=== PATIENT | female | born 1930 | race Caucasian/White ===

== ENCOUNTER 2016-09-26 16:12 | Inpatient (IN) | payer MEDICARE, BC ==
[2016-09-26] MEDS ORDERED: Ondansetron INJ* 2 MG/ML VIAL IV ONE ×2 (16:49→18:10)
[2016-09-26] MEDS ORDERED: Morphine INJ* 4 MG/ML 1 ML SYRINGE IV ONE (16:49)
[2016-09-26] MEDS ORDERED: HYDROmorphone* 1 MG/ML 1 ML SYR IV ONE ×2 (18:10→20:36)
[2016-09-26] MEDS ORDERED: NS 0.9% 1000 ML* 1,000 ML IV SCH ×2 (18:15→22:30)
--- NOTE | 2016-09-26 18:52 | RAD ---
HISTORY: Trauma, fall, pain of left humerus COMPARISONS: None VIEWS: 2, Frontal internal rotation and external rotation views of the left humerus FINDINGS: BONE DENSITY: There is diffuse osteopenia. 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 SOFT TISSUES: Unremarkable. OTHER FINDINGS: None. IMPRESSION: OSTEOPENIA. NO ACUTE OSSEOUS INJURY. THE DEGREE OF OSTEOPENIA MAY MAKE A NONDISPLACED FRACTURE RADIOGRAPHICALLY OCCULT. IF SYMPTOMS PERSIST, RECOMMEND REPEAT IMAGING.
--- NOTE | 2016-09-26 18:53 | RAD ---
HISTORY: Trauma, fall, pain of right humerus COMPARISONS: None VIEWS: 1, single frontal view of the right humerus FINDINGS: BONE DENSITY: There is diffuse osteopenia. BONES: There is a minimally angulated fracture of the surgical neck of the right humerus JOINTS: There is osteoarthritis of the shoulder and elbow ALIGNMENT: There is no dislocation. SOFT TISSUES: Unremarkable. OTHER FINDINGS: None. IMPRESSION: MINIMALLY ANGULATED FRACTURE OF THE PROXIMAL RIGHT HUMERUS
--- NOTE | 2016-09-26 18:53 | RAD ---
HISTORY: Trauma, fall, pain COMPARISONS: None relevant VIEWS: 4, Frontal, lateral, axial, and oblique views of the right knee FINDINGS: BONE DENSITY: There is diffuse osteopenia. BONES: There is no displaced fracture. 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 There is no suprapatellar joint effusion or lipohemarthrosis. ALIGNMENT: There is no dislocation. SOFT TISSUES: Unremarkable. OTHER FINDINGS: None. IMPRESSION: OSTEOPENIA. NO ACUTE OSSEOUS INJURY. THE DEGREE OF OSTEOPENIA MAY MAKE A NONDISPLACED FRACTURE RADIOGRAPHICALLY OCCULT. IF SYMPTOMS PERSIST, RECOMMEND REPEAT IMAGING.
--- NOTE | 2016-09-26 18:54 | RAD ---
HISTORY: Trauma, fall, left elbow pain COMPARISONS: None relevant VIEWS: 2, frontal and oblique lateral views of the left elbow FINDINGS: BONE DENSITY: There is diffuse osteopenia. BONES: There is a minimally impacted fracture of the radial head JOINTS: There is osteoarthritis of the ulnar trochlear and radial-capitellar articulations ALIGNMENT: There is no dislocation. SOFT TISSUES: Unremarkable. OTHER FINDINGS: None. IMPRESSION: OSTEOPENIA. MINIMALLY IMPACTED FRACTURE OF THE RADIAL HEAD
--- NOTE | 2016-09-26 18:55 | RAD ---
HISTORY: Trauma, fall, pain, left shoulder COMPARISONS: May 10, 2010 VIEWS: 3, Frontal internal rotation, external rotation, and outlet views of the left shoulder FINDINGS: BONE DENSITY: There is diffuse osteopenia. BONES: There is remote posttraumatic deformity of the proximal left humerus JOINTS: There is osteoarthritis of the shoulder ALIGNMENT: There is no dislocation. SOFT TISSUES: Unremarkable. OTHER FINDINGS: Surgical clips are noted in the left axilla IMPRESSION: OSTEOPENIA. NO ACUTE OSSEOUS INJURY. THE DEGREE OF OSTEOPENIA MAY MAKE A NONDISPLACED FRACTURE RADIOGRAPHICALLY OCCULT. IF SYMPTOMS PERSIST, RECOMMEND REPEAT IMAGING.
[2016-09-26 18:56] LABS: Hematocrit 36 % (35-47); Hemoglobin 11.2 g/dl (12.0-16.0); Mean Corpuscular HGB Conc 32 g/dl (31-36); Mean Corpuscular Hemoglobin 27 pg (27-31); Mean Corpuscular Volume 85 fL (80-97); Mean Platelet Volume 8 um3 (7.4-10.4); Red Blood Count 4.17 10^6/ul (4.0-5.4); Red Cell Distribution Width 15 % (10.5-15)
--- NOTE | 2016-09-26 18:56 | RAD ---
HISTORY: Trauma, right shoulder pain COMPARISONS: None VIEWS: 3, Frontal internal rotation, external rotation, and outlet views of the right shoulder FINDINGS: BONE DENSITY: There is diffuse osteopenia. BONES: There is a minimally angulated fracture of the surgical neck of the right humerus JOINTS: There is osteoporosis of the a.c. and glenohumeral articulations. ALIGNMENT: There is no dislocation. SOFT TISSUES: Unremarkable. OTHER FINDINGS: None. IMPRESSION: OSTEOPENIA. ANGULATED FRACTURE OF THE PROXIMAL RIGHT HUMERUS
[2016-09-26 19:34] LABS: Albumin 3.8 g/dL (3.2-5.2); BUN/Creatinine Ratio 26.7 (8-20); C Reactive Protein 8.29 mg/L (< 5.00); Calcium 9.2 mg/dL (8.6-10.3); EGFR African American 39.3 (>60); EGFR Non-African American 30.6 (>60); Globulin 3.6 g/dL (2-4); Potassium 5.6 mmol/L (3.5-5.0); Total Bilirubin 0.5 mg/dL (0.2-1.0); Total Protein 7.4 g/dL (6.4-8.9)
--- NOTE | 2016-09-26 20:39 | HP ---
H&P (Free Text) History and Physical: PCP: Herb Almanzar MD Cardiology: Abeba Hensley MD Oncology: Irving Walter MD Date/Time of Evaluation: 09/26/2016914 CC: fall w/ R shoulder & L elbow pain HPI: Mrs Gerardo is an 85YO female HX severe multi-vessel CAD being managed medially, cardiomyopathy, & recurrent breast CA reported by the patient as inoperable 2nd to her cardiac status. 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 She denies prodromal symptoms, specifically chest pain, SOB, palpitations , focal W/N/T, and dizziness. Work up reveals proximal R humeral & proximal L radial FXs. Hong Baltazar orthopedic surgery has been consulted by the ED and the case reviewed by myself via phone. I have also spoken with Avi Jacobsen MD cardiology who reviewed his case briefly, will confer with the primary faith doctor, Abeba Hensley, in the AM, and place an official consult on the chart in the AM specifically addressing cardiac risks for surgery. PMedHx severe multi-vessel CAD, medically managed/stent x2 cardiomyopathy EF 45% CKD stg 3a-4 HTN HLD breast CA w/ identification of recurrence ~2 months ago POAD s/p stent LLE & a renal artery stent for renovascular HTN tobacco use disorder, active Allergies Acetaminophen [From Tylenol] Allergy (Verified 11/27/13 00:33) Anaphylatic Shock Aspirin [From Excedrin] Allergy (Verified 11/27/13 00:34) Anaphylatic Shock Iodine Allergy (Verified 11/27/13 00:34) Anaphylatic Shock Ambulatory Orders Nursing to reconcile. Clopidogrel TAB* [Plavix TAB*] 75 mg PO DAILY 11/27/13 Ibandronate TAB(NF) [Boniva(NF)] 150 mg PO MONTHLY 09/02/15 Lactic Acid (Ammonium Lactate) [Ammonium Lactate] 12 % TOPICAL BID PRN 09/02/15 Metoprolol Succinate XL TAB* [Toprol XL TAB*] 100 mg PO DAILY 09/02/15 Nitroglycerin TAB 0.4 MG* 0.4 mg SL Q5M PRN 09/02/15 Zolpidem TAB* [Ambien TAB*] 10 mg PO BEDTIME PRN 09/02/15 Losartan TAB* [Cozaar TAB*] 100 mg PO DAILY 09/26/16 Pravastatin (NF) [Pravachol (NF)] 20 mg PO DAILY 09/26/16 PSurgHx OU cataract extractions corneal transplant OS cardiac stent x2 L mastectomy renal artery stent for renovascular HTN appendectomy hysterectomy L knee arthroscopy SocHx: 1PPD cigarettes w/ >40PYHX, minimal alcohol, no recreational drugs; lives alone; DNR/I code status FamHx: Mother: passed at age 27 2nd elephantiasis; Father passed at age 65 2nd cancer. ROS: as above, otherwise reviewed and all were negative Constitutional: NAD, normally developed, overweight white female vitals: Vital Signs Temp 36.9 C 09/26/16 16:16 Pulse 63 09/26/16 21:00 Resp 16 09/26/16 20:41 BP 193/69 09/26/16 21:00 Pulse Ox 98 09/26/16 21:00 Intake & Output 09/25/16 09/26/16 09/26/16 23:59 11:59 23:59 Weight 72.575 kg HEENM: atraumatic; sclera/conjunctiva: non-icteric/clear; hearing: clinically intact; oropharynx: clear, mucosa moist Neck: soft tissue: non-tender; thyroid: normal Pulmonary: clear to auscultation bilaterally, good aeration, no accessory muscle use CV: RR/RR, normal S1S2, no carotid bruit, no jugular venous distention, 2+ B DP/ PT, trace BLE edema Abdominal: soft, non-distended, non-tender, no rebound/guarding/rigidity, normoactive bowel sounds, no hepatosplenomegaly or masses, no costovertebral angle tenderness Musculoskeletal: swelling of the R shoulder & L elbow w/o ecchymosis currently Integumental: as above Psychiatric orientation: AA&O to PPS affect: calm mood: pleasant eye contact: good content: reliable memory: intact responses: timely insight: good Testing: Lab Results 09/26/16 09/26/16 Range/Units 18:42 18:42 WBC 15.0 H (3.5-10.8) 10^3/ul RBC 4.17 (4.0-5.4) 10^6/ul Hgb 11.2 L (12.0-16.0) g/dl Hct 36 (35-47) % MCV 85 (80-97) fL MCH 27 (27-31) pg MCHC 32 (31-36) g/dl RDW 15 (10.5-15) % Plt Count 311 (150-450) 10^3/ul MPV 8 (7.4-10.4) um3 Neut % (Auto) 80.0 (38-83) % Lymph % (Auto) 13.5 L (25-47) % Preston % (Auto) 4.9 (1-9) % Eos % (Auto) 1.1 (0-6) % Baso % (Auto) 0.5 (0-2) % Absolute Neuts (auto) 12.0 H (1.5-7.7) 10^3/ul Absolute Lymphs (auto) 2.0 (1.0-4.8) 10^3/ul Absolute Monos (auto) 0.7 (0-0.8) 10^3/ul Absolute Eos (auto) 0.2 (0-0.6) 10^3/ul Absolute Basos (auto) 0.1 (0-0.2) 10^3/ul Absolute Nucleated RBC 0.01 10^3/ul Nucleated RBC % 0 Sodium 138 (133-145) mmol/L Potassium 5.6 H (3.5-5.0) mmol/L Chloride 112 H (101-111) mmol/L Carbon Dioxide 19 L (22-32) mmol/L Anion Gap 7 (2-11) mmol/L BUN 43 H (6-24) mg/dL Creatinine 1.61 H (0.51-0.95) mg/dL Est GFR ( Amer) 39.3 (>60) Est GFR (Non-Af Amer) 30.6 (>60) BUN/Creatinine Ratio 26.7 H (8-20) Glucose 141 H (70-100) mg/dL Calcium 9.2 (8.6-10.3) mg/dL Total Bilirubin 0.50 (0.2-1.0) mg/dL AST 10 L (13-39) U/L ALT 8 (7-52) U/L Alkaline Phosphatase 90 (34-104) U/L Total Creatine Kinase 22 (10-223) U/L C-Reactive Protein 8.29 H (< 5.00) mg/L Total Protein 7.4 (6.4-8.9) g/dL Albumin 3.8 (3.2-5.2) g/dL Globulin 3.6 (2-4) g/dL Albumin/Globulin Ratio 1.1 (1-3) ECG, personally reviewed: ordered, pending XRY L shoulder, personally reviewed: IMPRESSION: OSTEOPENIA. NO ACUTE OSSEOUS INJURY. THE DEGREE OF OSTEOPENIA MAY MAKE A NONDISPLACED FRACTURE RADIOGRAPHICALLY OCCULT. IF SYMPTOMS PERSIST, RECOMMEND REPEAT IMAGING. XRY R shoulder, personally reviewed: IMPRESSION: OSTEOPENIA. ANGULATED FRACTURE OF THE PROXIMAL RIGHT HUMERUS XRY L elbow, personally reviewed: IMPRESSION: OSTEOPENIA. MINIMALLY IMPACTED FRACTURE OF THE RADIAL HEAD XRY R knee, personally reviewed: IMPRESSION: OSTEOPENIA. NO ACUTE OSSEOUS INJURY. THE DEGREE OF OSTEOPENIA MAY MAKE A NONDISPLACED FRACTURE RADIOGRAPHICALLY OCCULT. IF SYMPTOMS PERSIST, RECOMMEND REPEAT IMAGING. XRY R humerus, personally reviewed: IMPRESSION: MINIMALLY ANGULATED FRACTURE OF THE PROXIMAL RIGHT HUMERUS XRY L humerus, personally reviewed: IMPRESSION: OSTEOPENIA. NO ACUTE OSSEOUS INJURY. THE DEGREE OF OSTEOPENIA MAY MAKE A NONDISPLACED FRACTURE RADIOGRAPHICALLY OCCULT. IF SYMPTOMS PERSIST, RECOMMEND REPEAT IMAGING. Impression: 85F HX severe multi-vessel CAD, cardiomyopathy, & recurrent breast CA presents with R proximal humerus FX & proximal L radius FX s/p mechanical fall DIAGNOSIS & PLAN Primary R proximal humerus FX & proximal L radius FX s/p mechanical fall : Hong Vaughn MD orthopedic surgery consulted, will evaluate in AM : pain control : sling to BUE : director social consult severe multi-vessel CAD & cardiomyopathy EF 45% : obtain ECG : obtain ECHO : Avi Jacobsen MD cardiology consulted for cardiac pre-operative assessment : strict I&Os : daily weights Secondary breast CA, recurrent : continue outpatient follow up HTN : review meds once reconciled HLD : review meds once reconciled CKD stg 3a-4 : IVFs, periodic monitoring tobacco use disorder w/ >40PYHX : suspect undiagnosed COPD : albuterol nebs : mometasone/formoterol : tiotropium : incentive spirometry : smoking cessation advised, low motivation : nicotine replacement Admission Rational: inpatient for evaluation and management of R shoulder & L elbow FXs making outpatient management inappropriate in an 85YO female living alone DVTp: heparin SQ & SCDs Code Status: DNR/I, MOLST filled out HCP: Herb Almanzar
[2016-09-26] MEDS ORDERED: Albuterol 2.5 MG/3 ML NEB.SOL* (0.083%) INH PRN (22:28)
[2016-09-26] MEDS ORDERED: CMCS: Melatonin (NF) 3 MG TAB PO PRN (22:28)
[2016-09-26] MEDS ORDERED: Nicotine Inhaler* 10 MG AMP INH PRN (22:30)
[2016-09-26] MEDS ORDERED: Zolpidem TAB* 10 MG PO PRN (22:39)
[2016-09-26] MEDS ORDERED: HYDROmorphone* 1 MG/ML 1 ML SYR ONE (22:44)
[2016-09-26] MEDS: HYDROmorphone* 1 MG/ML 1 ML SYR IV PRN (22:47)
[2016-09-26] MEDS: oxyCODONE TAB* 5 MG TAB PO PRN (23:33)
[2016-09-27] MEDS: HYDROmorphone* 1 MG/ML 1 ML SYR IV PRN ×8 (00:43→22:28)
[2016-09-27] MEDS: hydrALAZINE IV* 20 MG/ML VIAL IV PRN (05:03)
[2016-09-27] MEDS: Heparin VIAL(*) 5000 UNITS/ML VIAL (FIVE THOUSAND) SUBCUT SCH ×3 (05:33→22:28)
[2016-09-27] MEDS: CMCS: Pantoprazole TAB (NF) 40 MG TAB PO SCH (05:34)
[2016-09-27] MEDS: oxyCODONE TAB* 5 MG TAB PO PRN ×4 (05:39→17:47)
[2016-09-27 05:56] LABS: Hematocrit 31 % (35-47); Mean Corpuscular HGB Conc 32 g/dl (31-36); Mean Corpuscular Hemoglobin 27 pg (27-31); Mean Corpuscular Volume 85 fL (80-97); Mean Platelet Volume 8 um3 (7.4-10.4); Red Cell Distribution Width 15 % (10.5-15); White Blood Count 13.3 10^3/ul (3.5-10.8)
[2016-09-27 06:32] LABS: BUN/Creatinine Ratio 26.1 (8-20); Calcium 8.4 mg/dL (8.6-10.3); EGFR African American 40.5 (>60); EGFR Non-African American 31.5 (>60); Potassium 5.7 mmol/L (3.5-5.0)
[2016-09-27] MEDS ORDERED: Sodium Polystyrene ORAL.SOL* 15 GM/60 ML BTL PO ONE (08:44)
[2016-09-27] MEDS ORDERED: Furosemide IV* 10 MG/ML 10 ML VIAL (100 MG) IV ONE (08:44)
[2016-09-27] MEDS ORDERED: Furosemide IV* 10 MG/ML 2 ML VIAL (20 MG) IV ONE (08:45)
[2016-09-27] MEDS: Mometasone/Formoter 200/5 MDI INH SCH ×2 (08:53→20:20)
[2016-09-27] MEDS: Tiotropium CAP.INH* CAP.INH/18 MCG INH SCH (08:53)
[2016-09-27] MEDS ORDERED: Losartan TAB* 25 MG PO SCH (09:00)
[2016-09-27] MEDS ORDERED: Spiriva Inhaler DEVICE* 1 EACH DEVICE INH ONE (09:00)
[2016-09-27] MEDS ORDERED: Clopidogrel TAB* 75 MG PO SCH (09:00)
--- NOTE | 2016-09-27 09:23 | ECHO ---
Patient: TORIN GARBER [facility] Rec#: [id number] : 1930 Date: 09/27/2016 Age: 85y Height: 162.56 cm / 64.0 in Weight: 72.57 kg / 159.9 lbs Sex: F BSA: 1.78 Room#: [facility] Admit Date#: 09/26/2016 Type: Inpatient Referring: Finn Bernardo MD Reading: Yoko Mccormick MD Radar Air Traffic Controller: Treva Cash Radar Air Traffic Controller: Sho Lund RDCS CC: Antoni Almanzar MD Transthoracic Echocardiogram Indication: CAD BP: 120/84 HR: 54 Rhythm: Bradycardia Findings History: Severe multivessel CAD, PCI x2 with medical management, cardiomyopathy, HTN, HLD, POAD s/p stent LLE and renal artery, breast cancer, smoker. Technical Comments: The study was technically limited due to the patient's inability to lay in the left lateral decubitus position. Completed at 0901. Left Ventricle: The left ventricular chamber size is normal. Mild concentric left ventricular hypertrophy is observed. There is global hypokinesis of the left ventricle with minor regional variation. There is mild to moderately decreased left ventricular systolic function. The estimated ejection fraction is 40-45%. There is no consistent Doppler evidence of clinically significant diastolic dysfunction.Suspicious for pseudonormal dysfunction. Left Atrium: The left atrium is severely dilated. Right Ventricle: The right ventricular cavity size is normal. The right ventricular global systolic function is normal. Right Atrium: The right atrium is mildly dilated. Aortic Valve: The aortic valve is trileaflet. There is evidence of aortic sclerosis without stenosis. There is no evidence of aortic regurgitation. There is no evidence of aortic stenosis. Mitral Valve: The mitral valve leaflets are moderately thickened. There is moderate mitral regurgitation. There is no evidence of mitral stenosis. Tricuspid Valve: The tricuspid valve leaflets are mildly thickened. There is mild to moderate tricuspid regurgitation. There is evidence of moderate pulmonary hypertension. There is no tricuspid stenosis. Pulmonic Valve: The pulmonic valve appears normal. There is a trace pulmonic regurgitation. There is no pulmonic stenosis. Pericardium: There is no pericardial effusion. A pericardial fat pad is visualized. Aorta: There is no dilatation of the ascending aorta. There is no dilatation of the aortic arch. There is no dilation of the aortic root. Pulmonary Artery: The main pulmonary artery appears normal. Venous: The inferior vena cava appears normal in size. There is a greater than 50% respiratory change in the inferior vena cava dimension. Conclusions Mild concentric left ventricular hypertrophy is observed. The estimated ejection fraction is 40-45%. Probable pseudonormal diastolic dysfunction. The right ventricular global systolic function is normal. There is evidence of aortic sclerosis without stenosis. There is moderate mitral regurgitation. There is mild to moderate tricuspid regurgitation. There is evidence of moderate pulmonary hypertension: 49 mmHg. Compared with prior echo of 06/05/16, ventricular function not significantly changed, the degree of MR has increased from mild, TR newly noted. Measurements Name Value Normal Range RVIDd (AP) 2D 2.7 cm (0.9 - 2.6) RVDdMajor (2D) 3.3 cm (2.2 - 4.4) RAd ISD 4CH 5.2 cm (3.4 - 4.9) RA (A4C)W 4.8 cm (2.9 - 4.6) IVSd (2D) 1.1 cm (0.6 - 1) LVPWd (2D) 1.2 cm (0.6 - 1) LVIDd (2D) 4.9 cm (3.6 - 5.4) LVIDs (2D) 3.7 cm - LV FS (2D) 24 % (25 - 45) Aortic Annulus 2 cm (1.4 - 2.6) Ao root diameter (2D) 2.7 cm (2.1 - 3.5) Ascending Ao 2.6 cm (2.1 - 3.4) Aortic arch 2.5 cm (1.8 - 3.4) LA dimension (AP) 2D 4.6 cm (2.3 - 3.8) LAd ISD 4CH 6.6 cm (2.9 - 5.3) LA ISD 4CH W 5.2 cm (2.5 - 4.5) Name Value Normal Range LA ESV SP 4CH (A/L) 70 ml - LA ESV SP 2CH (A/L) 114 ml - LA ESV BP (A/L) 96 ml - LA ESV BP (A/L) index 54.05 ml/m2 - LA ESV SP 4CH (MOD) 69 ml - LA ESV SP 2CH (MOD) 110 ml - Name Value Normal Range MV E-wave Vmax 1 m/sec - MV deceleration time 297 msec - MV A-wave Vmax 0.9 m/sec - MV E:A ratio 1.2 ratio - LV septal e' Vmax 0.05 m/sec - LV lateral e' Vmax 0.08 m/sec - LV E:e' septal ratio 20 ratio - LV E:e' lateral ratio 12.5 ratio - Name Value Normal Range AV Vmax 1.8 m/sec - AV VTI 47.9 cm - AV peak gradient 12.78 mmHg - AV mean gradient 7.99 mmHg - LVOT diameter 2 cm - LVOT Vmax 1.2 m/sec - LVOT VTI 28.9 cm - LVOT peak gradient 5.99 mmHg - LVOT mean gradient 3.53 mmHg - ROSENDO (continuity Vmax) 2.1 cm2 - ROSENDO (continuity VTI) 2 cm2 - NINOSKA Vmax 0.8 m/sec - Name Value Normal Range MR Vmax 5.8 m/sec - MR VTI 210.5 cm - Name Value Normal Range TR Vmax 3.4 m/sec - TR peak gradient 46 mmHg - RAP 3 mmHg - RVSP 49 mmHg - IVC diameter 1.8 cm - Name Value Normal Range PV Vmax 1 m/sec - PV peak gradient 3.93 mmHg -
[2016-09-27] MEDS: Metoprolol Succinate XL TAB* 100 MG PO SCH (09:42)
[2016-09-27] MEDS: Docusate CAP* 100 MG PO SCH ×2 (09:42→20:17)
[2016-09-27] MEDS: CMCS: Pravastatin (NF) 20 MG TAB PO SCH (09:42)
[2016-09-27] MEDS: Ondansetron INJ* 2 MG/ML VIAL IV PRN (10:42)
[2016-09-27 10:47] LABS: Troponin I 0.05 ng/mL (<0.04)
[2016-09-27 10:48] LABS: Troponin I 0.05 ng/mL (<0.04)
--- NOTE | 2016-09-27 11:50 | CONS ---
CC: Cesario Baltazar MD; Hospitalist Service; Antoni Almanzar MD; Dr. Hensley CARDIOLOGY CONSULTATION: DATE OF CONSULT: 09/27/16 REASON FOR CONSULTATION: Preoperative evaluation for arm fractures. CHIEF COMPLAINT: Arm pain status post fall. HISTORY OF PRESENT ILLNESS: Ms. Gerardo is an 85-year-old woman with known coronary and peripheral vascular disease followed by my partner, Dr. Hensley. Muna was in her usual state of health until yesterday, she was walking into a store and tripped at the threshold, a mechanical fall. She put her arms out and after the fall had pain in the right shoulder and left elbow. Presentation to the emergency room revealed a nondisplaced fracture of the left humerus, a minimally angulated fracture of the proximal right humerus and a minimally impacted fracture of the left radial head. The patient denies having any chest pain, pressure heaviness or unusual exertional dyspnea, orthopnea or PND prior to the event. With pain medications , she slept comfortably here. She denies chest pain, pressure or shortness of breath currently. PAST MEDICAL HISTORY: The patient has a past medical history of 3-vessel coronary artery disease: 1. Cath in November 2013 at [facility] showed left main with mild calcified plaque of the ostium, LAD 60% stenosis followed by a first diagonal with 90% stenosis. The circumflex has a complex 90% stenosis involving the takeoff of the first OM. 2. Active smoker, half a pack a day with COPD, 3. diabetes, 4. hypertension, 5. dyslipidemia, 6. peripheral vascular disease involving the right coronary artery (2 RCA stents, 2008). 7. Breast cancer, recurrence identified 2 months ago. 8. Moderate ischemic cardiomyopathy, ejection fraction of 45%. PAST SURGICAL HISTORY: Includes: 1. Tonsillectomy. 2. Appendectomy. 3. Hysterectomy. 4. Right oophorectomy. 5. Cataract implant. 6. Left mastectomy. 7. Left knee arthroscopy. 8. Corneal transplant OS. CURRENT INPATIENT MEDICATIONS: Include: 1. Albuterol nebulizers. 2. Colace. 3. Subcutaneous heparin. 4. Hydralazine 10 mg IV q.4 h. p.r.n. hypertension. 5. Dilaudid 0.5 mg IV q.2 h. 6. Melatonin 3 mg q.h.s. p.r.n. sleep. 7. Toprol XL 100 mg a day. 8. Dulera 200/5 MDI. 9. Nicotine inhaler 10 mg INH q.2 h. p.r.n. 10. Zofran 4 mg IV q.6 h. p.r.n. 11. Roxicodone tablets 5 mg q.4 h. p.r.n. pain. 12. Protonix 40 mg a day. 13. Pravachol 20 mg a day. 14. Spiriva 1 capsule inhaled daily. 15. Ambien 10 mg q.h.s. p.r.n. sleep. Her losartan was held, was on it as an outpatient, 100 mg a day. ALLERGIES: Include ACETAMINOPHEN (anaphylactic shock, angioedema). ASPIRIN ( anaphylactic shock), INTRAVENOUS CONTRAST DYE/IODINE (anaphylactic shock). Caffeine intolerance. FAMILY HISTORY: Significant in that her mother had elephantiasis and at age 27. Her father at age 65 with a history of cancer. SOCIAL HISTORY: The patient lives independently. Admitted to ma she smokes half a pack a day. No history of recreational drug use or excessive alcohol intake. Drinks soda. No regular exercise. She is retired from working at [employer]. REVIEW OF SYSTEMS: See the history of present illness. Negative for recent chest pain, orthopnea, PND or acute changes in functional ability. All other review of systems was unremarkable. PHYSICAL EXAM: On exam, the patient is 5 feet 4 inches, weighs 160 pounds with a BMI of 27.5. Current blood pressure 120/84 with a pulse of 59, respiratory rate is 16, oxygen saturations on 2 L nasal cannula was 99%. On arrival to the emergency room, blood pressure is 174/57, pulse 67, oxygen saturation is 96% on room air and she has been afebrile since admission. General Appearance: Elderly woman appears uncomfortable, of somewhat depressed affect lying at 15 degrees, somewhat sleepy (recent pain medications). Psychologically pleasant, cooperative. Neurologically, sleepy from sedation but pleasant, cooperative and able to move extremities and follow commands. Skin: Changes consistent with age and chronic smoking but no appreciable cyanosis, or rashes. HEENT: Pupils are equal and round. Mucous membranes moderately moist. Neck without appreciable thyromegaly, lymphadenopathy or increasing JVP. Breath sounds anterior and laterally were, clear free of wheezing, rales or rhonchi. I did not get a full complete lung exam as I did not want to cause undue pain in the arms. Coronary: S1, S2 regular without murmurs or rubs in any position. Left mastectomy scar is incidentally noted and unremarkable abdomen. Active bowel sounds. Soft, nontender. No hepatosplenomegaly, masses or no bruits heard. Lower Extremities: Warm and well perfused. Sequentials on. DIAGNOSTIC STUDIES/LAB DATA: Labs on admission: White count 15, hemoglobin 11.2, hematocrit 36, platelets 311. Today white count 13.3, hemoglobin 10, hematocrit 31. INR 0.98, PTT 32.1. Labs today, sodium 137, potassium 5.7, chloride 113, bicarb 17, BUN 41, creatinine 1.57, glucose 124. From 09/26/16, AST 10, ALT 8. C- reactive protein 8.29. CK 22. Recent labs from [place], 09/05/16, showed sodium 145, potassium 5.3, chloride 114, bicarb 19, BUN 28, creatinine 1.6. Total cholesterol 145, HDL cholesterol 45, triglycerides 126 and LDL cholesterol of 75. Studies: Echocardiogram today showed an ejection fraction of 45%, moderate mitral insufficiency, [id number] tricuspid insufficiency, PA pressure of 49 mmHg. Normal right ventricular function. X-rays as above. Bilateral humerus fractures as well as minimally impacted fracture of the radial head. Shoulder x-rays left and right revealed possible nondisplaced fracture of the left shoulder and confirmed the angulated fracture of the proximal right humerus. All upper extremity films revealed osteopenia as well. ECGs from 09/26/16 reviewed showed sinus rhythm 60 beats a minute. QRS axis was 0. Normal AV and IV conduction times, left ventricular hypertrophy by voltage criteria. Normal STs. EKG done this morning, 09/27/16, showed very subtle ST depression in the lateral leads V5 and V6 consistent with her LVH and repolarization changes. No evidence of acute ischemia. When this compared with an EKG a year ago, 09/02/15, the rate is slower but ST changes are stable. SUMMARY: In summary, Muna Gerardo is an 85-year-old woman who suffered bilateral arm fractures with a mechanical fall yesterday with 3-vessel coronary artery disease, on medical management with atherosclerotic risks of active smoking, hypertension, hyperglycemia, dyslipidemia and she has a history of breast cancer. She has chronic renal insufficiency that appears worse on admission compared with recent labs and anemia. She has acidosis and hyperkalemia. With respect to her surgery, I do not recommend a stress test or heart catheterization as we know she has extensive 3-vessel atherosclerotic disease and will not change management specialist. Ms. Gerardo is a high risk patient for surgery but it does not exclude the option of surgery. We will need to look at the risks of surgical or interventional orthopedic management versus conservative management. I think with conscious sedation and/or local anesthesia, the patient could undergo procedures that would align the bones and with medical management, i.e. , continuation of metoprolol and statins and supportive care of her metabolic and respiratory abnormalities, there would be minimal risk to the underlying atherosclerotic disease. If extensive prolonged surgery were in order, which I am not appreciating myself, then we may want to reconsider a more conservative approach. Mrs. Gerardo states she has not talked with Orthopedic Surgery and wants to know more specifically what her options are before making or commenting on how she would like to proceed. In terms of her hyperkalemia and renal insufficiency, I agree with holding the Cozaar in the short term. P.r. n. hydralazine is noted which I agree with and if her blood pressure does go up off her Cozaar, then it would be appropriate to consider replacing Cozaar with hydralazine on regular doses. Amlodipine or other dihydropyridines would be another option as well. Optimizing the patient's metabolic state, i.e., good diet, smoking cessation, diagnosis and correction of her acidosis will be important. The patient is at risk for systolic and diastolic congestive heart failure during this hospitalization and may need some p.r.n. diuretics. I would follow I's and O's and weights carefully. I agree with DVT prophylaxis. I have ordered troponins to help risk stratify her. Her ECGs are reassuring. We will follow her actively with you. Thanks for allowing us to assist in this nice woman's care. [id number]/[facility] #: [id number] ERIK
--- NOTE | 2016-09-27 13:28 | ED ---
Joe Saez Anna, scribed for Levy Jarrell MD on 09/26/16 at 1739 . Adult Trauma - HPI Summary HPI Summary: Patient is an 85 y/o female coming to [facility] presenting with the sudden onset of constant extremity pain that occurred today after a fall. She tripped over the doorstop. She has pain in her left arm just above her elbow, her right forearm, and her right knee. She has limited ROM in her right arm at baseline. Denies hitting her head. She hit her face and bent her glasses. - History of Current Complaint Chief Complaint: EDExtremityUpper Stated Complaint: FALL/R SHOULDER INJURY Time Seen by Provider: 09/26/16 17:11 Hx Obtained From: Patient, Family/Health Information Administrator - Accompanied by Mechanism of Injury: Fall Pain Intensity: 10 - Allergy/Home Medications Allergies/Adverse Reactions: Allergies Allergy/AdvReac Type Severity Reaction Status Date / Time Acetaminophen [From Tylenol] Allergy Anaphylatic Verified 11/27/13 00:33 Shock Aspirin [From Excedrin] Allergy Anaphylatic Verified 11/27/13 00:34 Shock Iodine Allergy Anaphylatic Verified 11/27/13 00:34 Shock Home Medications: Home Medications Losartan TAB* [Cozaar TAB*] 100 mg PO DAILY 09/26/16 [History Confirmed 09/27/16 ] Pravastatin (NF) [Pravachol (NF)] 20 mg PO DAILY 09/26/16 [History Confirmed ] PMH/Surg Hx/FS Hx/Imm Hx Cardiovascular History: Reports: Hx Coronary Artery Disease, Hx Hypertension - W /MEDS, Hx Myocardial Infarction Denies: Hx Angina, Hx Hypercholesterolemia, Hx Valvular Heart Disease Respiratory History: Denies: Hx Asthma, Hx Chronic Obstructive Pulmonary Disease (COPD) Musculoskeletal History: Reports: Hx Osteoporosis Sensory History: Reports: Hx Contacts or Glasses, Hx Vision Problem - corneal transplant Opthamlomology History: Reports: Hx Contacts or Glasses, Hx Vision Problem - corneal transplant - Cancer History Cancer Type, Location and Year: breast- 1990 Hx Chemotherapy: No Hx Radiation Therapy: No Hx Palliative Cancer Treatment: No - Surgical History Surgery Procedure, Year, and Place: 1990- left [id number]- corneal [id number]- hysterectomy, CORONARY STENTS Hx Anesthesia Reactions: No Infectious Disease History: Denies: Traveled Outside the [place] in Last 30 Days - Family History Known Family History: Positive: Cardiac Disease - Social History Alcohol Use: Rare Substance Use Type: Reports: None Hx Tobacco Use: Yes Smoking Status (MU): Current Every Day Smoker Type: Cigarettes Amount Used/How Often: 3-7 packs per week Length of Time of Smoking/Using Tobacco: 55 yrs Have You Smoked in the Last Year: Yes Review of Systems Positive: Arthralgia Psychological: Normal All Other Systems Reviewed And Are Negative: Yes Physical Exam Triage Information Reviewed: Yes Vital Signs On Initial Exam: Initial Vitals Temp Pulse Resp BP Pulse Ox 98.5 F 67 18 174/57 96 09/26/16 16:16 09/26/16 16:16 09/26/16 16:16 09/26/16 16:16 09/26/16 16:16 Vital Signs Reviewed: Yes Appearance: Positive: Well-Appearing, No Pain Distress Skin: Positive: Warm, Skin Color Reflects Adequate Perfusion, Dry Head/Face: Positive: Normal Head/Face Inspection Eyes: Positive: Normal ENT: Positive: Normal ENT inspection Neck: Positive: Supple, Nontender Respiratory/Lung Sounds: Positive: Clear to Auscultation, Breath Sounds Present Cardiovascular: Positive: RRR Abdomen Description: Positive: Nontender, Soft Bowel Sounds: Positive: Present Musculoskeletal: Positive: Other - Tender from distal humeruses and tender to any ROM of right knee Neurological: Positive: Normal Psychiatric: Positive: Affect/Mood Appropriate Diagnostics - Vital Signs Vital Signs Temp Pulse Resp BP Pulse Ox 09/26/16 17:06 62 206/80 95 09/26/16 17:00 65 227/39 96 09/26/16 16:58 16 09/26/16 16:35 69 96 09/26/16 16:32 174/51 09/26/16 16:16 98.5 F 67 18 174/57 96 - Laboratory Lab Results: Lab Results 09/26/16 09/26/16 Range/Units 18:42 18:42 WBC 15.0 H (3.5-10.8) 10^3/ul RBC 4.17 (4.0-5.4) 10^6/ul Hgb 11.2 L (12.0-16.0) g/dl Hct 36 (35-47) % MCV 85 (80-97) fL MCH 27 (27-31) pg MCHC 32 (31-36) g/dl RDW 15 (10.5-15) % Plt Count 311 (150-450) 10^3/ul MPV 8 (7.4-10.4) um3 Neut % (Auto) 80.0 (38-83) % Lymph % (Auto) 13.5 L (25-47) % [place] % (Auto) 4.9 (1-9) % Eos % (Auto) 1.1 (0-6) % Baso % (Auto) 0.5 (0-2) % Absolute Neuts (auto) 12.0 H (1.5-7.7) 10^3/ul Absolute Lymphs (auto) 2.0 (1.0-4.8) 10^3/ul Absolute Monos (auto) 0.7 (0-0.8) 10^3/ul Absolute Eos (auto) 0.2 (0-0.6) 10^3/ul Absolute Basos (auto) 0.1 (0-0.2) 10^3/ul Absolute Nucleated RBC 0.01 10^3/ul Nucleated RBC % 0 Sodium 138 (133-145) mmol/L Potassium 5.6 H (3.5-5.0) mmol/L Chloride 112 H (101-111) mmol/L Carbon Dioxide 19 L (22-32) mmol/L Anion Gap 7 (2-11) mmol/L BUN 43 H (6-24) mg/dL Creatinine 1.61 H (0.51-0.95) mg/dL Est GFR ( Amer) 39.3 (>60) Est GFR (Non-Af Amer) 30.6 (>60) BUN/Creatinine Ratio 26.7 H (8-20) Glucose 141 H (70-100) mg/dL Calcium 9.2 (8.6-10.3) mg/dL Total Bilirubin 0.50 (0.2-1.0) mg/dL AST 10 L (13-39) U/L ALT 8 (7-52) U/L Alkaline Phosphatase 90 (34-104) U/L Total Creatine Kinase 22 (10-223) U/L Troponin I 0.05 H* (<0.04) ng/mL C-Reactive Protein 8.29 H (< 5.00) mg/L Total Protein 7.4 (6.4-8.9) g/dL Albumin 3.8 (3.2-5.2) g/dL Globulin 3.6 (2-4) g/dL Albumin/Globulin Ratio 1.1 (1-3) Result Diagrams: 09/27/16 05:45 09/27/16 05:45 Lab Statement: Any lab studies that have been ordered have been reviewed, and results considered in the medical decision making process. - Radiology XR Humerus Left Xray Interpretation: No Acute Changes Radiology Interpretation Completed By: Radiologist - IMPRESSION: OSTEOPENIA. NO ACUTE OSSEOUS INJURY. THE DEGREE OF OSTEOPENIA MAY MAKE A NONDISPLACED FRACTURE RADIOGRAPHICALLY OCCULT. IF SYMPTOMS PERSIST, RECOMMEND REPEAT IMAGING. XR Humerus Right Xray Interpretation: Positive (See Comments) Radiology Interpretation Completed By: Radiologist - IMPRESSION: MINIMALLY ANGULATED FRACTURE OF THE PROXIMAL RIGHT HUMERUS XR Knee Right Xray Interpretation: No Acute Changes Radiology Interpretation Completed By: Radiologist - IMPRESSION: OSTEOPENIA. NO ACUTE OSSEOUS INJURY. THE DEGREE OF OSTEOPENIA MAY MAKE A NONDISPLACED FRACTURE RADIOGRAPHICALLY OCCULT. IF SYMPTOMS PERSIST, RECOMMEND REPEAT IMAGING. XR Elbow Left Xray Interpretation: Positive (See Comments) Radiology Interpretation Completed By: Radiologist - IMPRESSION: OSTEOPENIA. MINIMALLY IMPACTED FRACTURE OF THE RADIAL HEAD XR Shoulder Left Xray Interpretation: No Acute Changes Radiology Interpretation Completed By: Radiologist - IMPRESSION: OSTEOPENIA. NO ACUTE OSSEOUS INJURY. THE DEGREE OF OSTEOPENIA MAY MAKE A NONDISPLACED FRACTURE RADIOGRAPHICALLY OCCULT. IF SYMPTOMS PERSIST, RECOMMEND REPEAT IMAGING. XR Shoulder Right Xray Interpretation: Positive (See Comments) Radiology Interpretation Completed By: Radiologist - IMPRESSION: OSTEOPENIA. ANGULATED FRACTURE OF THE PROXIMAL RIGHT HUMERUS Adult Trauma Course/Dx - Course Course Of Treatment: Ms. Gerardo had a mechanical fall and blocked [place] with both arms outstretched. She is very osteopenic and sustained a fracturo of her right humeral neck and left radial head as well as a possible fracture of her left humeral neck. She was given pain control here in the ED and will be admitted as she lives alone. - Diagnoses Provider Diagnoses: R PROXIMAL HUMERUS FRACTURE, L RADIAL HEAD FRACTURE - Physician Notifications Discussed Care Of Patient With: Dr. Rodarte (Hospitalist) at 1806. Agrees to accept patient for admission. Dr. Baltazar 1929. Agrees to consult. Discharge - Discharge Plan Condition: Stable Disposition: ADMITTED TO [facility] The documentation as recorded by the Joe burton Anna accurately reflects the service I personally performed and the decisions made by me, Levy Jarrell MD.
--- NOTE | 2016-09-27 15:30 | PN ---
Subjective Date of Service: 09/27/16 Interval History: Pt c/o pain in b/l UE's Objective Active Medications: Albuterol (Ventolin 2.5 Mg/3 Ml Neb.Pavithra*) 2.5 mg INH Q2H PRN PRN Reason: SOB/WHEEZING Docusate Sodium (Colace Cap*) 200 mg PO BID [facility] Last Admin: 09/27/16 09:42 Dose: 200 mg Heparin Sodium (Porcine) (Heparin Vial(*)) 5,000 units SUBCUT Q8HR [facility] Last Admin: 09/27/16 13:40 Dose: 5,000 units Hydralazine HCl (Apresoline Iv*) 10 mg IV Q4H PRN PRN Reason: Systolic >170 Last Admin: 09/27/16 05:03 Dose: 10 mg Hydromorphone HCl (Dilaudid Iv*) 0.5 mg IV Q2H PRN PRN Reason: PAIN Last Admin: 09/27/16 13:41 Dose: 0.5 mg Lactated Ringer's (Lactated Ringers 1000 Ml Bag*) 1,000 mls @ 50 mls/hr IV PER RATE [facility] Last Admin: 09/27/16 10:44 Dose: 50 mls/hr Melatonin (Melatonin (Nf)) 3 mg PO BEDTIME PRN; Protocol PRN Reason: Sleep Metoprolol Succinate (Toprol Xl Tab*) 100 mg PO DAILY [facility] Last Admin: 09/27/16 09:42 Dose: 100 mg Mometasone Furoate/Formoterol Fumar (Dulera 200/5 Mdi*) 2 puff INH BID [facility] Last Admin: 09/27/16 08:53 Dose: 2 puff Nicotine (Nicotine Inhaler*) 10 mg INH Q2H PRN PRN Reason: CRAVING Ondansetron HCl (Zofran Inj*) 4 mg IV Q6H PRN PRN Reason: NAUSEA Last Admin: 09/27/16 10:42 Dose: 4 mg Oxycodone HCl (Roxycodone Tab*) 5 mg PO Q4H PRN PRN Reason: PAIN Last Admin: 09/27/16 13:40 Dose: 5 mg Pantoprazole Sodium (Protonix Tab (Nf)) 40 mg PO DAILY@0600 [facility] Last Admin: 09/27/16 05:34 Dose: 40 mg Pravastatin Sodium (Pravachol (Nf)) 20 mg PO DAILY [facility] PRN Reason: Protocol Last Admin: 09/27/16 09:42 Dose: 20 mg Tiotropium [place] (Spiriva Cap.Inh*) 1 cap INH DAILY [facility] Last Admin: 09/27/16 08:53 Dose: 1 cap Zolpidem Tartrate (Ambien Tab*) 10 mg PO BEDTIME PRN PRN Reason: SLEEP Vital Signs 09/26/16 09/26/16 09/26/16 22:00 22:47 22:53 Temperature Pulse Rate 61 68 Respiratory 20 Rate Blood Pressure 197/60 (mmHg) O2 Sat by Pulse 97 96 Oximetry 09/26/16 09/26/16 09/26/16 22:59 23:33 23:42 Temperature 98.1 F 98.2 F Pulse Rate 70 Respiratory 16 16 Rate Blood Pressure 260/69 (mmHg) O2 Sat by Pulse 98 Oximetry 09/26/16 09/26/16 09/27/16 23:47 23:55 00:04 Temperature Pulse Rate 61 61 Respiratory 16 18 Rate Blood Pressure 163/77 163/77 (mmHg) O2 Sat by Pulse Oximetry 09/27/16 09/27/16 09/27/16 00:43 00:45 01:33 Temperature Pulse Rate Respiratory 16 15 18 Rate Blood Pressure (mmHg) O2 Sat by Pulse Oximetry 09/27/16 09/27/16 09/27/16 01:37 02:11 04:12 Temperature 98.5 F Pulse Rate 59 Respiratory 18 17 Rate Blood Pressure 188/51 (mmHg) O2 Sat by Pulse 98 99 Oximetry 09/27/16 09/27/16 09/27/16 04:16 05:16 05:39 Temperature Pulse Rate Respiratory 16 15 16 Rate Blood Pressure (mmHg) O2 Sat by Pulse Oximetry 09/27/16 09/27/16 09/27/16 06:23 07:23 07:39 Temperature Pulse Rate Respiratory 16 18 18 Rate Blood Pressure (mmHg) O2 Sat by Pulse Oximetry 09/27/16 09/27/16 09/27/16 07:48 08:00 09:42 Temperature 98.0 F Pulse Rate 59 Respiratory 16 18 18 Rate Blood Pressure 120/84 (mmHg) O2 Sat by Pulse 99 Oximetry 09/27/16 09/27/16 09/27/16 11:25 11:27 11:42 Temperature 98.0 F Pulse Rate 59 Respiratory 18 16 18 Rate Blood Pressure 150/50 (mmHg) O2 Sat by Pulse 98 Oximetry 09/27/16 09/27/16 09/27/16 12:25 13:40 13:41 Temperature Pulse Rate Respiratory 18 18 18 Rate Blood Pressure (mmHg) O2 Sat by Pulse Oximetry 09/27/16 14:33 Temperature Pulse Rate Respiratory 18 Rate Blood Pressure (mmHg) O2 Sat by Pulse Oximetry Oxygen Devices in Use Now: Nasal Cannula - at 2 l Appearance: 85 yo F in NAD, aAOx3 Eyes: No Scleral Icterus, PERRLA Ears/Nose/Mouth/Throat: NL Teeth, Lips, Gums, - - left periorbital area ecchymosis Respiratory: Symmetrical Chest Expansion and Respiratory Effort, - - crackles at b/l bases Cardiovascular: NL Sounds; No Murmurs; No JVD, RRR Abdominal: NL Sounds; No Tenderness; No Distention Lymphatic: No Cervical Adenopathy Extremities: No Clubbing, Cyanosis Skin: No Nodules or Sclerosis Neurological: Alert and Oriented x 3, - - unable to move b/l UE due to extreme pain and tenderness on b/l UE's evaluation Result Diagrams: 09/27/16 05:45 09/27/16 05:45 Additional Lab and Data: Lab Results 09/26/16 09/26/16 Range/Units 18:42 18:42 WBC 15.0 H (3.5-10.8) 10^3/ul RBC 4.17 (4.0-5.4) 10^6/ul Hgb 11.2 L (12.0-16.0) g/dl Hct 36 (35-47) % MCV 85 (80-97) fL MCH 27 (27-31) pg MCHC 32 (31-36) g/dl RDW 15 (10.5-15) % Plt Count 311 (150-450) 10^3/ul MPV 8 (7.4-10.4) um3 Neut % (Auto) 80.0 (38-83) % Lymph % (Auto) 13.5 L (25-47) % [place] % (Auto) 4.9 (1-9) % Eos % (Auto) 1.1 (0-6) % Baso % (Auto) 0.5 (0-2) % Absolute Neuts (auto) 12.0 H (1.5-7.7) 10^3/ul Absolute Lymphs (auto) 2.0 (1.0-4.8) 10^3/ul Absolute Monos (auto) 0.7 (0-0.8) 10^3/ul Absolute Eos (auto) 0.2 (0-0.6) 10^3/ul Absolute Basos (auto) 0.1 (0-0.2) 10^3/ul Absolute Nucleated RBC 0.01 10^3/ul Nucleated RBC % 0 Sodium 138 (133-145) mmol/L Potassium 5.6 H (3.5-5.0) mmol/L Chloride 112 H (101-111) mmol/L Carbon Dioxide 19 L (22-32) mmol/L Anion Gap 7 (2-11) mmol/L BUN 43 H (6-24) mg/dL Creatinine 1.61 H (0.51-0.95) mg/dL Est GFR ( Amer) 39.3 (>60) Est GFR (Non-Af Amer) 30.6 (>60) BUN/Creatinine Ratio 26.7 H (8-20) Glucose 141 H (70-100) mg/dL Calcium 9.2 (8.6-10.3) mg/dL Total Bilirubin 0.50 (0.2-1.0) mg/dL AST 10 L (13-39) U/L ALT 8 (7-52) U/L Alkaline Phosphatase 90 (34-104) U/L Total Creatine Kinase 22 (10-223) U/L Troponin I 0.05 H* (<0.04) ng/mL C-Reactive Protein 8.29 H (< 5.00) mg/L Total Protein 7.4 (6.4-8.9) g/dL Albumin 3.8 (3.2-5.2) g/dL Globulin 3.6 (2-4) g/dL Albumin/Globulin Ratio 1.1 (1-3) Assess/Plan/Problems-Billing Assessment: 85 yo F with h/o breast cancer, severe CAD, HTN, CKD stage 3, HTN, COPD(not on 02, current smoker) presents after a fall with b/l UE's fractures. - Patient Problems (1) Fracture of upper extremity Comment: B/L: fracture of R humerus and left radial bone. Appreciate Dr. Macedo's consult. Pt chose nonoperative treatment. NWB on both arms PT/OT pending (2) CAD (coronary artery disease) Comment: severe. Appreciate Dr. Mccormick's eval. Pt would be high risk if she needed surgery cont Plavix Echo shows EF 40%, mod pulm HTN, mod TR and MR Asymptomatic Troponin at 0.05-baseline (3) Hyperkalemia Comment: mild, holding cozaar Tx with Kayexalate (4) CKD (chronic kidney disease) stage 3, GFR 30-59 ml/min Comment: creat at baseline (5) HTN (hypertension) Comment: uncontroled Cozaar held due to hyperkalemia Will add norvasc to metoprolol (6) DVT prophylaxis Comment: heparin sc Status and Disposition: inpatient
[2016-09-27] MEDS ORDERED: Nicotine PATCH 21 MG/24 HR* PATCH TRANSDERM SCH (16:00)
[2016-09-27] MEDS: amLODIPine TAB* 5 MG PO SCH (17:14)
--- NOTE | 2016-09-27 18:36 | CONS ---
ORTHOPEDIC CONSULTATION: DATE OF CONSULTATION: 09/27/16 CHIEF COMPLAINT: Right shoulder and left elbow pain status post fall. HISTORY OF PRESENT ILLNESS: Ms. Gerardo is an 85-year-old right hand dominant female who had a fall stepping off a curb while she was walking into a warehouse carpet on 09/26/16. She fell on her outstretched arms. She immediately had 10/10 right shoulder and left elbow pain. Any attempt to move the upper extremities increased her pain and only immobilization decreased her pain. The patient denied any dizziness, chest pain, or palpitations before the fall. The patient has a history of a left proximal humerus fracture treated nonoperatively. The patient has multiple medical comorbidities and has been seen by the cardiac team who thought she was a high risk for surgery. PAST MEDICAL HISTORY: Severe multivessel coronary artery disease stents x2, cardiomyopathy EF 45%, chronic kidney disease stage 3A-4, hypertension, HLD, breast cancer with recurrence 2 months ago, PLAD status post stent in the left lower extremity, renal artery stent for renovascular, hypertension, and tobacco use. PAST SURGICAL HISTORY: Cardiac stenting, renal artery stenting, multiple lower extremity stents for peripheral vascular disease, breast cancer, mastectomy, cataract extractions, corneal transplant, appendectomy, and hysterectomy. CURRENT MEDICATIONS: 1. Plavix 75 mg p.o. daily. 2. Boniva 150 mg p.o. monthly. 3. Lactic acid 12% topical b.i.d. p.r.n. 4. Metoprolol XL 100 mg p.o. daily. 5. Nitroglycerin 0.4 mg sublingual p.r.n. 6. Zolpidem 10 mg p.o. q.h.s. 7. Losartan 100 mg p.o. daily. 8. Pravastatin 20 mg p.o. daily. ALLERGIES: TYLENOL, ASPIRIN, IODINE. FAMILY HISTORY: Maternal elephantiasis, paternal cancer. SOCIAL HISTORY: The patient smokes 1 pack of cigarettes per day for greater than 40 years. No alcohol or recreational drug use. She lives alone. Right hand dominant. REVIEW OF SYSTEMS: Fourteen systems was discussed with the patient today, positive for right shoulder pain and left elbow pain. She denies other pain. Negative for fevers, chills, chest pain, shortness of breath. Otherwise, patient reports review of systems as negative or not relevant. PHYSICAL EXAMINATION: General: The patient is a thin female in no apparent distress, alert and oriented x3, pleasant mood and appropriate affect. Gait is not assessed. The patient is lying in bed. HEENT: Atraumatic and normocephalic. Pupils are equal and reactive to light. Chest: Unlabored breathing. Extremities: Right upper extremity, patient's skin is intact. Ecchymosis and swelling around the proximal humerus with extreme tenderness to palpation. Any attempt to move the shoulder increases her pain. No tenderness to palpation around the elbow or wrist. She can extend and flex the wrist. 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 She demonstrates extension at the wrist and thumb. She can flex and extend all fingers. 2+ palpable radial pulse. Left upper extremity, patient's skin is intact. Some swelling and tenderness to palpation along the lateral elbow. No tenderness to palpation around the shoulder or wrist. She can flex and extend the wrist. She demonstrates thumbs up, crossed finger sign and she can flex and extend all fingers. Full sensation to light touch and all nerve distributions and 2+ palpable radial pulse. Bilateral lower extremities, patient's skin is intact. No tenderness to palpation. She can dorsiflex and plantarflex the ankles and has 2+ palpable DP pulses. Full sensation to light touch in all nerve distributions. DIAGNOSTIC DATA: Radiographs: Multiple views of the right shoulder, left shoulder, left elbow are reviewed on the PACS system. She has a comminuted displaced fracture of the right proximal humerus. Humeral head is reduced in the glenoid. Left shoulder film show a healed proximal humerus fracture. Left elbow film show a minimally displaced radial head and neck fracture. ASSESSMENT AND PLAN: Ms. Gerardo is an 85-year-old right hand dominant female with known significant coronary and peripheral vascular disease. She had a recent fall and suffered a right displaced comminuted proximal humerus fracture and left displaced radial head and neck fracture. I am consulted for orthopedic fracture care. The patient has been seen by Cardiology who feels that she is a high risk patient for surgery. With her current tobacco abuse, coronary artery disease, vascular disease, and worsening renal function, I do not feel the patient is an appropriate surgical candidate. I would recommend we treat these fractures nonoperatively. For the right upper extremity she should be nonweightbearing. A sling for comfort only. For the left upper extremity, nonweightbearing, with a sling for immobilization. We discussed briefly obtaining her a removable posterior splint for the left elbow. I am not eager to splint that arm tool straightener because of possible skin breakdown. Her skin is quite frail. She should have p.r.n. analgesia at this point. Ice as needed. The patient is adamant about returning to her home. I feel she would benefit from intermediate facility over the next few weeks. She will likely need help with all ADLs. I will follow the patient in out-patient clinic. I would like to see her in 2 weeks after discharge and call the office [phone] for an appointment. Thank you for this orthopedic consultation. [id number]/[facility] #: [id number] ERIK
[2016-09-27] MEDS ORDERED: Zolpidem TAB* 10 MG PO SCH (21:00)
[2016-09-27] MEDS ORDERED: Nicotine Patch Removal NOTE PATCH OFF SCH (22:00)
[2016-09-28] MEDS: HYDROmorphone* 1 MG/ML 1 ML SYR IV PRN ×4 (00:35→09:33)
[2016-09-28] MEDS: oxyCODONE TAB* 5 MG TAB PO PRN ×4 (04:40→16:24)
[2016-09-28] MEDS: CMCS: Pantoprazole TAB (NF) 40 MG TAB PO SCH (06:04)
[2016-09-28] MEDS: Heparin VIAL(*) 5000 UNITS/ML VIAL (FIVE THOUSAND) SUBCUT SCH ×3 (06:04→21:46)
[2016-09-28 07:44] LABS: Hematocrit 28 % (35-47); Mean Corpuscular HGB Conc 32 g/dl (31-36); Mean Corpuscular Hemoglobin 27 pg (27-31); Mean Corpuscular Volume 86 fL (80-97); Mean Platelet Volume 9 um3 (7.4-10.4); Red Blood Count 3.29 10^6/ul (4.0-5.4); Red Cell Distribution Width 15 % (10.5-15); White Blood Count 11.6 10^3/ul (3.5-10.8)
[2016-09-28 08:02] LABS: BUN/Creatinine Ratio 22.1 (8-20); Calcium 8.5 mg/dL (8.6-10.3); EGFR African American 32.5 (>60); EGFR Non-African American 25.2 (>60); Potassium 4.8 mmol/L (3.5-5.0)
[2016-09-28] MEDS: Metoprolol Succinate XL TAB* 100 MG PO SCH (08:49)
[2016-09-28] MEDS: Docusate CAP* 100 MG PO SCH ×2 (08:49→20:46)
[2016-09-28] MEDS: Clopidogrel TAB* 75 MG PO SCH (08:49)
[2016-09-28] MEDS: amLODIPine TAB* 5 MG PO SCH (08:49)
[2016-09-28] MEDS: CMCS: Pravastatin (NF) 20 MG TAB PO SCH (08:54)
[2016-09-28] MEDS: Tiotropium CAP.INH* CAP.INH/18 MCG INH SCH (08:54)
[2016-09-28] MEDS: Mometasone/Formoter 200/5 MDI INH SCH ×2 (08:54→20:48)
--- NOTE | 2016-09-28 10:45 | PN ---
Progress Note - Progress Note SOAP: Subjective: []Patient seen OOb in chair. Just received dilaudid pain medication, very somnolent. Right shoulder more painful than left elbow. Objective: [] Vital Signs Temp 98.2 F 09/28/16 07:18 Pulse 58 09/28/16 08:57 Resp 16 09/28/16 09:33 BP 158/36 09/28/16 07:18 Pulse Ox 98 09/28/16 08:57 Intake & Output 09/27/16 09/28/16 09/28/16 18:59 06:59 18:59 Intake Total 942 1187 Output Total 1000 660 Balance -58 527 Intake: IV Fluids 417 737 LR 174 737 NS (0.9%) 243 Oral 525 450 Output: Glass 850 660 Emesis 150 Bilateral upper extremities remain neuro intact. mild edema bilateral hands skin is intact at left forearm/elbow, superficial dorsal hand ecchymosis Well padded One-step 3 inch posterior splint applied to left upper extremity at about 80 elbow flexion, sling re applied. She tolerated splint application without any difficulties. Assessment: []1. Right proximal humerus fracture, mild impaction. 2. Left radial head fracture, mild impaction Plan: []Continue conservative management for both fractures, sling BUE Splint LUE is for extra support and comfort, it may be removed/ reapplied prn
[2016-09-28] MEDS: oxyCODONE SR TAB(*) 10 MG TAB.SR PO SCH ×2 (12:18→20:46)
--- NOTE | 2016-09-28 12:52 | PN ---
Subjective Date of Service: 09/28/16 Interval History: pt c/o b/l arm pain , but improved from yesterday Objective Active Medications: Albuterol (Ventolin 2.5 Mg/3 Ml Neb.Pavithra*) 2.5 mg INH Q2H PRN PRN Reason: SOB/WHEEZING Amlodipine Besylate (Norvasc Tab*) 10 mg PO DAILY [facility] Last Admin: 09/28/16 08:49 Dose: 10 mg Clopidogrel Bisulfate (Plavix Tab*) 75 mg PO DAILY [facility] Last Admin: 09/28/16 08:49 Dose: 75 mg Docusate Sodium (Colace Cap*) 200 mg PO BID [facility] Last Admin: 09/28/16 08:49 Dose: 200 mg Heparin Sodium (Porcine) (Heparin Vial(*)) 5,000 units SUBCUT Q8HR [facility] Last Admin: 09/28/16 06:04 Dose: 5,000 units Hydralazine HCl (Apresoline Iv*) 10 mg IV Q4H PRN PRN Reason: Systolic >170 Last Admin: 09/27/16 05:03 Dose: 10 mg Hydromorphone HCl (Dilaudid Iv*) 0.5 mg IV Q2H PRN PRN Reason: PAIN Last Admin: 09/28/16 09:33 Dose: 0.5 mg Lactated Ringer's (Lactated Ringers 1000 Ml Bag*) 1,000 mls @ 50 mls/hr IV PER RATE [facility] Last Admin: 09/28/16 06:03 Dose: 50 mls/hr Melatonin (Melatonin (Nf)) 3 mg PO BEDTIME PRN; Protocol PRN Reason: Sleep Metoprolol Succinate (Toprol Xl Tab*) 100 mg PO DAILY [facility] Last Admin: 09/28/16 08:49 Dose: 100 mg Mometasone Furoate/Formoterol Fumar (Dulera 200/5 Mdi*) 2 puff INH BID [facility] Last Admin: 09/28/16 08:54 Dose: 2 puff Ondansetron HCl (Zofran Inj*) 4 mg IV Q6H PRN PRN Reason: NAUSEA Last Admin: 09/27/16 10:42 Dose: 4 mg Oxycodone HCl (Roxycodone Tab*) 5 mg PO Q4H PRN PRN Reason: PAIN Last Admin: 09/28/16 12:18 Dose: 5 mg Oxycodone HCl (Oxycontin(*)) 10 mg PO Q12HR [facility] Last Admin: 09/28/16 12:18 Dose: 10 mg Pantoprazole Sodium (Protonix Tab (Nf)) 40 mg PO DAILY@0600 [facility] Last Admin: 09/28/16 06:04 Dose: 40 mg Pravastatin Sodium (Pravachol (Nf)) 20 mg PO DAILY [facility] PRN Reason: Protocol Last Admin: 09/28/16 08:54 Dose: 20 mg Tiotropium [place] (Spiriva Cap.Inh*) 1 cap INH DAILY [facility] Last Admin: 09/28/16 08:54 Dose: 1 cap Zolpidem Tartrate (Ambien Tab*) 10 mg PO BEDTIME PRN PRN Reason: SLEEP Vital Signs 09/27/16 09/27/16 09/27/16 13:40 13:41 14:33 Temperature Pulse Rate Respiratory 18 18 18 Rate Blood Pressure (mmHg) O2 Sat by Pulse Oximetry 09/27/16 09/27/16 09/27/16 15:39 16:00 16:14 Temperature 98.7 F Pulse Rate 57 Respiratory 16 16 Rate Blood Pressure 106/49 (mmHg) O2 Sat by Pulse 97 100 Oximetry 09/27/16 09/27/16 09/27/16 16:20 16:43 17:20 Temperature Pulse Rate Respiratory 18 16 Rate Blood Pressure 133/45 (mmHg) O2 Sat by Pulse Oximetry 09/27/16 09/27/16 09/27/16 17:47 19:47 19:49 Temperature Pulse Rate Respiratory 18 16 16 Rate Blood Pressure (mmHg) O2 Sat by Pulse Oximetry 09/27/16 09/27/16 09/27/16 20:25 20:27 20:49 Temperature 98.6 F Pulse Rate 58 Respiratory 16 16 16 Rate Blood Pressure 142/43 (mmHg) O2 Sat by Pulse 97 Oximetry 09/27/16 09/27/16 09/28/16 22:28 23:28 00:09 Temperature 99.0 F Pulse Rate 68 Respiratory 16 18 18 Rate Blood Pressure 126/110 (mmHg) O2 Sat by Pulse 96 Oximetry 09/28/16 09/28/16 09/28/16 00:19 00:35 01:22 Temperature Pulse Rate 61 Respiratory 16 16 Rate Blood Pressure 129/44 (mmHg) O2 Sat by Pulse Oximetry 09/28/16 09/28/16 09/28/16 04:18 04:29 04:40 Temperature 99.0 F Pulse Rate 66 Respiratory 22 19 16 Rate Blood Pressure 149/49 (mmHg) O2 Sat by Pulse 98 Oximetry 09/28/16 09/28/16 09/28/16 05:29 06:35 07:18 Temperature 98.2 F Pulse Rate 60 Respiratory 15 15 16 Rate Blood Pressure 158/36 (mmHg) O2 Sat by Pulse 99 Oximetry 09/28/16 09/28/16 09/28/16 07:26 07:30 08:26 Temperature Pulse Rate Respiratory 18 18 16 Rate Blood Pressure (mmHg) O2 Sat by Pulse Oximetry 09/28/16 09/28/16 09/28/16 08:49 08:57 09:33 Temperature Pulse Rate 58 Respiratory 16 14 16 Rate Blood Pressure (mmHg) O2 Sat by Pulse 98 Oximetry 09/28/16 09/28/16 09/28/16 10:33 11:25 11:34 Temperature 98.1 F Pulse Rate 54 54 Respiratory 16 16 18 Rate Blood Pressure 157/50 (mmHg) O2 Sat by Pulse 100 98 Oximetry 09/28/16 12:18 Temperature Pulse Rate Respiratory 16 Rate Blood Pressure (mmHg) O2 Sat by Pulse Oximetry Oxygen Devices in Use Now: Nasal Cannula - at 2 l Appearance: 85 yo f in nAD, aAOx3 Eyes: No Scleral Icterus, PERRLA Ears/Nose/Mouth/Throat: NL Teeth, Lips, Gums, Mucous Membranes Moist Neck: NL Appearance and Movements; NL JVP Respiratory: Symmetrical Chest Expansion and Respiratory Effort, Clear to Auscultation Cardiovascular: NL Sounds; No Murmurs; No JVD, RRR Abdominal: NL Sounds; No Tenderness; No Distention Lymphatic: No Cervical Adenopathy Extremities: No Clubbing, Cyanosis, - - b/l UE's in dslings Skin: No Nodules or Sclerosis Neurological: Alert and Oriented x 3, NL Muscle Strength and Tone Result Diagrams: 09/28/16 07:11 09/28/16 07:11 Additional Lab and Data: Lab Results 09/26/16 09/26/16 Range/Units 18:42 18:42 WBC 15.0 H (3.5-10.8) 10^3/ul RBC 4.17 (4.0-5.4) 10^6/ul Hgb 11.2 L (12.0-16.0) g/dl Hct 36 (35-47) % MCV 85 (80-97) fL MCH 27 (27-31) pg MCHC 32 (31-36) g/dl RDW 15 (10.5-15) % Plt Count 311 (150-450) 10^3/ul MPV 8 (7.4-10.4) um3 Neut % (Auto) 80.0 (38-83) % Lymph % (Auto) 13.5 L (25-47) % [place] % (Auto) 4.9 (1-9) % Eos % (Auto) 1.1 (0-6) % Baso % (Auto) 0.5 (0-2) % Absolute Neuts (auto) 12.0 H (1.5-7.7) 10^3/ul Absolute Lymphs (auto) 2.0 (1.0-4.8) 10^3/ul Absolute Monos (auto) 0.7 (0-0.8) 10^3/ul Absolute Eos (auto) 0.2 (0-0.6) 10^3/ul Absolute Basos (auto) 0.1 (0-0.2) 10^3/ul Absolute Nucleated RBC 0.01 10^3/ul Nucleated RBC % 0 Sodium 138 (133-145) mmol/L Potassium 5.6 H (3.5-5.0) mmol/L Chloride 112 H (101-111) mmol/L Carbon Dioxide 19 L (22-32) mmol/L Anion Gap 7 (2-11) mmol/L BUN 43 H (6-24) mg/dL Creatinine 1.61 H (0.51-0.95) mg/dL Est GFR ( Amer) 39.3 (>60) Est GFR (Non-Af Amer) 30.6 (>60) BUN/Creatinine Ratio 26.7 H (8-20) Glucose 141 H (70-100) mg/dL Calcium 9.2 (8.6-10.3) mg/dL Total Bilirubin 0.50 (0.2-1.0) mg/dL AST 10 L (13-39) U/L ALT 8 (7-52) U/L Alkaline Phosphatase 90 (34-104) U/L Total Creatine Kinase 22 (10-223) U/L Troponin I 0.05 H* (<0.04) ng/mL C-Reactive Protein 8.29 H (< 5.00) mg/L Total Protein 7.4 (6.4-8.9) g/dL Albumin 3.8 (3.2-5.2) g/dL Globulin 3.6 (2-4) g/dL Albumin/Globulin Ratio 1.1 (1-3) Assess/Plan/Problems-Billing Assessment: 85 yo F with h/o breast cancer, severe CAD, HTN, CKD stage 3, HTN, COPD(not on 02, current smoker) presents after a fall with b/l UE's fractures. - Patient Problems (1) Fracture of upper extremity Comment: B/L: fracture of R humerus and left radial bone. Appreciate Dr. Macedo's consult. cont nonoperative treatment. NWB on both arms PT/OT ongoing (2) CAD (coronary artery disease) Comment: severe. Appreciate Dr. Mccormick's eval. Pt would be high risk if she needed surgery cont Plavix Echo shows EF 40%, mod pulm HTN, mod TR and MR Asymptomatic Troponin at 0.05-baseline (3) Hyperkalemia Comment: mild, holding cozaar Tx with Kayexalate on 09/27/16-resolved (4) CKD (chronic kidney disease) stage 3, GFR 30-59 ml/min Comment: creat at baseline (5) HTN (hypertension) Comment: uncontroled Cozaar held due to hyperkalemia Norvasc added to metoprolol on 09/27/16 (6) DVT prophylaxis Comment: heparin sc Status and Disposition: inpatient [facility] planned to d/c on 09/29/16. UA pending Needs STR
[2016-09-28 14:41] LABS: Urine Bacteria 1+ (Absent); Urine Bilirubin Negative (Negative); Urine Glucose Negative (Negative); Urine Nitrite Positive (Negative)
[2016-09-28] MEDS ORDERED: Magnesium Hydroxide LIQ* 30 ML UDC PO ONE (15:05)
[2016-09-28] MEDS: cefTRIAXone VIAL(*) 1,000 MG in NS 0.9% 50 ML* 50 ML IVPB SCH (16:18)
[2016-09-28] MEDS: Senna TAB PO SCH (20:46)
[2016-09-29] MEDS: oxyCODONE TAB* 5 MG TAB PO PRN ×3 (05:24→14:03)
[2016-09-29] MEDS: CMCS: Pantoprazole TAB (NF) 40 MG TAB PO SCH (05:24)
[2016-09-29] MEDS: Heparin VIAL(*) 5000 UNITS/ML VIAL (FIVE THOUSAND) SUBCUT SCH ×3 (05:25→21:49)
[2016-09-29] MEDS: HYDROmorphone* 1 MG/ML 1 ML SYR IV PRN ×4 (05:30→19:36)
[2016-09-29 06:36] LABS: BUN/Creatinine Ratio 23.6 (8-20); Calcium 8.4 mg/dL (8.6-10.3); EGFR Non-African American 27.2 (>60); Potassium 5.5 mmol/L (3.5-5.0)
--- NOTE | 2016-09-29 07:32 | PN ---
Progress Note - Progress Note SOAP: Subjective: Pt. is alert, reports severe pain in R shoulder. Feels the L splint is helping. Objective: RUE - swollen, tender shoulder, nvi. LUE - splint intact, distally nvi. Vital Signs: Temp Pulse Resp BP Pulse Ox 98.5 F 60 16 149/64 98 09/29/16 03:32 09/29/16 03:32 09/29/16 06:30 09/29/16 03:32 09/29/16 03:32 Laboratory Results - last 24 hr 09/28/16 09/28/16 09/28/16 07:11 07:11 14:15 WBC 11.6 H RBC 3.29 L Hgb 9.0 L Hct 28 L MCV 86 MCH 27 MCHC 32 RDW 15 Plt Count 222 MPV 9 Neut % (Auto) 68.9 Lymph % (Auto) 19.4 L [place] % (Auto) 9.5 H Eos % (Auto) 1.6 Baso % (Auto) 0.6 Absolute Neuts (auto) 8.0 H Absolute Lymphs (auto) 2.2 Absolute Monos (auto) 1.1 H Absolute Eos (auto) 0.2 Absolute Basos (auto) 0.1 Absolute Nucleated RBC 0 Nucleated RBC % 0 Sodium 134 Potassium 4.8 Chloride 108 Carbon Dioxide 19 L Anion Gap 7 BUN 42 H Creatinine 1.90 H Est GFR ( Amer) 32.5 Est GFR (Non-Af Amer) 25.2 BUN/Creatinine Ratio 22.1 H Glucose 107 H Calcium 8.5 L Urine Color Yellow Urine Appearance Cloudy Urine pH 5.0 Ur Specific [place] 1.015 Urine Protein 2+(100 mg/dl) H Urine Ketones Negative Urine Blood 3+ H Urine Nitrate Positive H Urine Bilirubin Negative Urine Urobilinogen Negative Ur Leukocyte Esterase 3+ H Urine WBC (Auto) 3+(>20/hpf) H Urine RBC (Auto) 3+(>10/hpf) H Ur Squamous Epith Cells Present H Urine Bacteria 1+ H Granular Casts Present H Urine Glucose Negative 09/29/16 05:58 WBC RBC Hgb Hct MCV MCH MCHC RDW Plt Count MPV Neut % (Auto) Lymph % (Auto) [place] % (Auto) Eos % (Auto) Baso % (Auto) Absolute Neuts (auto) Absolute Lymphs (auto) Absolute Monos (auto) Absolute Eos (auto) Absolute Basos (auto) Absolute Nucleated RBC Nucleated RBC % Sodium 133 Potassium 5.5 H Chloride 109 Carbon Dioxide 17 L Anion Gap 7 BUN 42 H Creatinine 1.78 H Est GFR ( Amer) 35.0 Est GFR (Non-Af Amer) 27.2 BUN/Creatinine Ratio 23.6 H Glucose 108 H Calcium 8.4 L Urine Color Urine Appearance Urine pH Ur Specific [place] Urine Protein Urine Ketones Urine Blood Urine Nitrate Urine Bilirubin Urine Urobilinogen Ur Leukocyte Esterase Urine WBC (Auto) Urine RBC (Auto) Ur Squamous Epith Cells Urine Bacteria Granular Casts Urine Glucose Assessment: 85 yo F s/p fall with R prox humerus fx, L radial head fx Plan: NWB BUE sling to RUE sling and splint to LUE - may remove L splint for skin checks prn analgesia f/u with Dr. Macedo 2 weeks after discharge, call [phone] for appointment
[2016-09-29] MEDS ORDERED: Sodium Polystyrene ORAL.SOL* 15 GM/60 ML BTL PO ONE (08:32)
[2016-09-29] MEDS: Tiotropium CAP.INH* CAP.INH/18 MCG INH SCH (08:33)
[2016-09-29] MEDS: Mometasone/Formoter 200/5 MDI INH SCH ×2 (08:34→19:37)
[2016-09-29] MEDS: amLODIPine TAB* 5 MG PO SCH (08:48)
[2016-09-29] MEDS: Clopidogrel TAB* 75 MG PO SCH (08:48)
[2016-09-29] MEDS: Metoprolol Succinate XL TAB* 100 MG PO SCH (08:48)
[2016-09-29] MEDS: CMCS: Pravastatin (NF) 20 MG TAB PO SCH (08:49)
[2016-09-29] MEDS: oxyCODONE SR TAB(*) 10 MG TAB.SR PO SCH (08:49)
[2016-09-29] MEDS: Docusate CAP* 100 MG PO SCH ×2 (08:49→19:37)
[2016-09-29 08:52] LABS: Hematocrit 31 % (35-47); Hemoglobin 9.7 g/dl (12.0-16.0); Mean Corpuscular HGB Conc 32 g/dl (31-36); Mean Corpuscular Hemoglobin 27 pg (27-31); Mean Corpuscular Volume 84 fL (80-97); Mean Platelet Volume 9 um3 (7.4-10.4); Red Blood Count 3.65 10^6/ul (4.0-5.4); Red Cell Distribution Width 15 % (10.5-15); White Blood Count 12.7 10^3/ul (3.5-10.8)
--- NOTE | 2016-09-29 14:45 | PN ---
Subjective Date of Service: 09/29/16 Interval History: pt c/o severe pain in B/l UE's Objective Active Medications: Albuterol (Ventolin 2.5 Mg/3 Ml Neb.Pavithra*) 2.5 mg INH Q2H PRN PRN Reason: SOB/WHEEZING Amlodipine Besylate (Norvasc Tab*) 10 mg PO DAILY [facility] Last Admin: 09/29/16 08:48 Dose: 10 mg Clopidogrel Bisulfate (Plavix Tab*) 75 mg PO DAILY [facility] Last Admin: 09/29/16 08:48 Dose: 75 mg Docusate Sodium (Colace Cap*) 200 mg PO BID [facility] Last Admin: 09/29/16 08:49 Dose: 200 mg Heparin Sodium (Porcine) (Heparin Vial(*)) 5,000 units SUBCUT Q8HR [facility] Last Admin: 09/29/16 14:02 Dose: 5,000 units Hydralazine HCl (Apresoline Iv*) 10 mg IV Q4H PRN PRN Reason: Systolic >170 Last Admin: 09/27/16 05:03 Dose: 10 mg Hydromorphone HCl (Dilaudid Iv*) 0.5 mg IV Q2H PRN PRN Reason: PAIN Last Admin: 09/29/16 12:04 Dose: 0.5 mg Ceftriaxone Sodium 1,000 mg/ (Sodium Chloride) 50 mls @ 200 mls/hr IVPB Q24H [facility] Last Admin: 09/28/16 16:18 Dose: 200 mls/hr Melatonin (Melatonin (Nf)) 3 mg PO BEDTIME PRN; Protocol PRN Reason: Sleep Metoprolol Succinate (Toprol Xl Tab*) 100 mg PO DAILY [facility] Last Admin: 09/29/16 08:48 Dose: 100 mg Mometasone Furoate/Formoterol Fumar (Dulera 200/5 Mdi*) 2 puff INH BID [facility] Last Admin: 09/29/16 08:34 Dose: 2 puff Ondansetron HCl (Zofran Inj*) 4 mg IV Q6H PRN PRN Reason: NAUSEA Last Admin: 09/27/16 10:42 Dose: 4 mg Oxycodone HCl (Roxycodone Tab*) 5 mg PO Q4H PRN PRN Reason: PAIN Last Admin: 09/29/16 14:03 Dose: 5 mg Pantoprazole Sodium (Protonix Tab (Nf)) 40 mg PO DAILY@0600 [facility] Last Admin: 09/29/16 05:24 Dose: 40 mg Pravastatin Sodium (Pravachol (Nf)) 20 mg PO DAILY [facility] PRN Reason: Protocol Last Admin: 09/29/16 08:49 Dose: 20 mg Senna (Senokot Tab*) 2 tab PO BEDTIME [facility] Last Admin: 09/28/16 20:46 Dose: 2 tab Tiotropium [place] (Spiriva Cap.Inh*) 1 cap INH DAILY [facility] Last Admin: 09/29/16 08:33 Dose: 1 cap Zolpidem Tartrate (Ambien Tab*) 10 mg PO BEDTIME PRN PRN Reason: SLEEP Vital Signs 09/28/16 09/28/16 09/28/16 15:43 16:24 17:11 Temperature 98.9 F Pulse Rate 58 Respiratory 18 16 Rate Blood Pressure 149/37 (mmHg) O2 Sat by Pulse 100 96 Oximetry 09/28/16 09/28/16 09/28/16 18:22 19:48 20:00 Temperature 99.2 F Pulse Rate 58 Respiratory 16 12 16 Rate Blood Pressure 155/52 (mmHg) O2 Sat by Pulse 99 Oximetry 09/28/16 09/28/16 09/28/16 20:46 22:46 23:30 Temperature 98.8 F Pulse Rate 55 Respiratory 16 16 16 Rate Blood Pressure 148/44 (mmHg) O2 Sat by Pulse 100 Oximetry 09/29/16 09/29/16 09/29/16 03:32 05:24 05:30 Temperature 98.5 F Pulse Rate 60 Respiratory 18 17 17 Rate Blood Pressure 149/64 (mmHg) O2 Sat by Pulse 98 Oximetry 09/29/16 09/29/16 09/29/16 06:30 07:24 08:06 Temperature 98.6 F Pulse Rate 53 Respiratory 16 16 20 Rate Blood Pressure 140/56 (mmHg) O2 Sat by Pulse 99 Oximetry 09/29/16 09/29/16 09/29/16 08:34 08:39 08:49 Temperature Pulse Rate 59 Respiratory 14 16 Rate Blood Pressure (mmHg) O2 Sat by Pulse 98 98 Oximetry 09/29/16 09/29/16 09/29/16 09:25 09:30 10:49 Temperature Pulse Rate Respiratory 16 16 16 Rate Blood Pressure (mmHg) O2 Sat by Pulse Oximetry 09/29/16 09/29/16 09/29/16 11:25 12:04 12:21 Temperature 98.3 F Pulse Rate 55 Respiratory 16 16 16 Rate Blood Pressure 137/56 (mmHg) O2 Sat by Pulse 96 Oximetry 09/29/16 09/29/16 13:04 14:03 Temperature Pulse Rate Respiratory 14 16 Rate Blood Pressure (mmHg) O2 Sat by Pulse Oximetry Oxygen Devices in Use Now: None Appearance: 85 yo F in NAd, aAOx3 Eyes: No Scleral Icterus, PERRLA Ears/Nose/Mouth/Throat: NL Teeth, Lips, Gums, Mucous Membranes Moist Neck: NL Appearance and Movements; NL JVP Respiratory: Symmetrical Chest Expansion and Respiratory Effort, Clear to Auscultation Cardiovascular: NL Sounds; No Murmurs; No JVD, RRR Abdominal: NL Sounds; No Tenderness; No Distention Lymphatic: No Cervical Adenopathy Extremities: No Edema, No Clubbing, Cyanosis, - - B/l UE's in slings Skin: No Nodules or Sclerosis, - Neurological: Alert and Oriented x 3, - - limit of movemement in b/l UE's due to fractures and pain Result Diagrams: 09/29/16 08:28 09/29/16 05:58 Additional Lab and Data: Lab Results 09/26/16 09/26/16 Range/Units 18:42 18:42 WBC 15.0 H (3.5-10.8) 10^3/ul RBC 4.17 (4.0-5.4) 10^6/ul Hgb 11.2 L (12.0-16.0) g/dl Hct 36 (35-47) % MCV 85 (80-97) fL MCH 27 (27-31) pg MCHC 32 (31-36) g/dl RDW 15 (10.5-15) % Plt Count 311 (150-450) 10^3/ul MPV 8 (7.4-10.4) um3 Neut % (Auto) 80.0 (38-83) % Lymph % (Auto) 13.5 L (25-47) % [place] % (Auto) 4.9 (1-9) % Eos % (Auto) 1.1 (0-6) % Baso % (Auto) 0.5 (0-2) % Absolute Neuts (auto) 12.0 H (1.5-7.7) 10^3/ul Absolute Lymphs (auto) 2.0 (1.0-4.8) 10^3/ul Absolute Monos (auto) 0.7 (0-0.8) 10^3/ul Absolute Eos (auto) 0.2 (0-0.6) 10^3/ul Absolute Basos (auto) 0.1 (0-0.2) 10^3/ul Absolute Nucleated RBC 0.01 10^3/ul Nucleated RBC % 0 Sodium 138 (133-145) mmol/L Potassium 5.6 H (3.5-5.0) mmol/L Chloride 112 H (101-111) mmol/L Carbon Dioxide 19 L (22-32) mmol/L Anion Gap 7 (2-11) mmol/L BUN 43 H (6-24) mg/dL Creatinine 1.61 H (0.51-0.95) mg/dL Est GFR ( Amer) 39.3 (>60) Est GFR (Non-Af Amer) 30.6 (>60) BUN/Creatinine Ratio 26.7 H (8-20) Glucose 141 H (70-100) mg/dL Calcium 9.2 (8.6-10.3) mg/dL Total Bilirubin 0.50 (0.2-1.0) mg/dL AST 10 L (13-39) U/L ALT 8 (7-52) U/L Alkaline Phosphatase 90 (34-104) U/L Total Creatine Kinase 22 (10-223) U/L Troponin I 0.05 H* (<0.04) ng/mL C-Reactive Protein 8.29 H (< 5.00) mg/L Total Protein 7.4 (6.4-8.9) g/dL Albumin 3.8 (3.2-5.2) g/dL Globulin 3.6 (2-4) g/dL Albumin/Globulin Ratio 1.1 (1-3) Assess/Plan/Problems-Billing Assessment: 85 yo F with h/o breast cancer, severe CAD, HTN, CKD stage 3, HTN, COPD(not on 02, current smoker) presents after a fall with b/l UE's fractures. - Patient Problems (1) Fracture of upper extremity Comment: B/L: fracture of R humerus and left radial bone. Appreciate Dr. Macedo's consult. cont nonoperative treatment. NWB on both arms PT/OT ongoing will increase oxycontin from 10 to 15 mg BID (2) CAD (coronary artery disease) Comment: severe. Appreciate Dr. Mccormick's eval. Pt would be high risk if she needed surgery cont Plavix Echo shows EF 40%, mod pulm HTN, mod TR and MR Asymptomatic Troponin at 0.05-baseline (3) Hyperkalemia Comment: mild, holding cozaar Tx with Kayexalate on 09/27/16. Recurred, will tx with Kayexalate again today (4) CKD (chronic kidney disease) stage 3, GFR 30-59 ml/min Comment: creat at baseline (5) HTN (hypertension) Comment: controled Cozaar held due to hyperkalemia Norvasc added to metoprolol on 09/27/16 (6) UTI (urinary tract infection) Comment: ? abnormal UA. Awiating cx results. Placed empirically on Ceftriaxone on 09/28/16 (7) DVT prophylaxis Comment: heparin sc Status and Disposition: inpatient Awaiting STR
[2016-09-29] MEDS: cefTRIAXone VIAL(*) 1,000 MG in NS 0.9% 50 ML* 50 ML IVPB SCH (16:40)
[2016-09-29] MEDS: oxyCODONE SR TAB(*) 20 MG TAB.SR PO SCH (19:36)
[2016-09-29] MEDS: Senna TAB PO SCH (19:36)
[2016-09-30] MEDS: oxyCODONE TAB* 5 MG TAB PO PRN ×2 (03:21→15:13)
[2016-09-30] MEDS: Heparin VIAL(*) 5000 UNITS/ML VIAL (FIVE THOUSAND) SUBCUT SCH ×3 (05:40→22:19)
[2016-09-30] MEDS: CMCS: Pantoprazole TAB (NF) 40 MG TAB PO SCH (05:40)
[2016-09-30 06:47] LABS: BUN/Creatinine Ratio 24.3 (8-20); Calcium 8.9 mg/dL (8.6-10.3); EGFR African American 35.2 (>60); EGFR Non-African American 27.4 (>60); Potassium 4.8 mmol/L (3.5-5.0)
[2016-09-30] MEDS: Tiotropium CAP.INH* CAP.INH/18 MCG INH SCH (08:03)
[2016-09-30] MEDS: Mometasone/Formoter 200/5 MDI INH SCH ×2 (08:03→20:43)
[2016-09-30] MEDS: amLODIPine TAB* 5 MG PO SCH (08:29)
[2016-09-30] MEDS: Clopidogrel TAB* 75 MG PO SCH (08:29)
[2016-09-30] MEDS: CMCS: Pravastatin (NF) 20 MG TAB PO SCH (08:29)
[2016-09-30] MEDS: Metoprolol Succinate XL TAB* 100 MG PO SCH (08:30)
[2016-09-30] MEDS: Docusate CAP* 100 MG PO SCH ×2 (08:30→20:47)
[2016-09-30] MEDS: oxyCODONE SR TAB(*) 20 MG TAB.SR PO SCH ×2 (08:30→20:47)
[2016-09-30] MEDS ORDERED: Magnesium Hydroxide LIQ* 30 ML UDC PO ONE (12:03)
--- NOTE | 2016-09-30 12:09 | PN ---
Subjective Date of Service: 09/30/16 Interval History: Pain is better controlled on increased Oxycontin. Has not had BM x several days RN attempted to encourage pt to get out of bed and walk, but pt refused. Objective Active Medications: Albuterol (Ventolin 2.5 Mg/3 Ml Neb.Pavitrha*) 2.5 mg INH Q2H PRN PRN Reason: SOB/WHEEZING Amlodipine Besylate (Norvasc Tab*) 10 mg PO DAILY [facility] Last Admin: 09/30/16 08:29 Dose: 10 mg Clopidogrel Bisulfate (Plavix Tab*) 75 mg PO DAILY [facility] Last Admin: 09/30/16 08:29 Dose: 75 mg Docusate Sodium (Colace Cap*) 200 mg PO BID [facility] Last Admin: 09/30/16 08:30 Dose: 200 mg Heparin Sodium (Porcine) (Heparin Vial(*)) 5,000 units SUBCUT Q8HR [facility] Last Admin: 09/30/16 05:40 Dose: 5,000 units Hydralazine HCl (Apresoline Iv*) 10 mg IV Q4H PRN PRN Reason: Systolic >170 Last Admin: 09/27/16 05:03 Dose: 10 mg Hydromorphone HCl (Dilaudid Iv*) 0.5 mg IV Q2H PRN PRN Reason: PAIN Last Admin: 09/29/16 19:36 Dose: 0.5 mg Ceftriaxone Sodium 1,000 mg/ (Sodium Chloride) 50 mls @ 200 mls/hr IVPB Q24H [facility] Last Admin: 09/29/16 16:40 Dose: 200 mls/hr Melatonin (Melatonin (Nf)) 3 mg PO BEDTIME PRN; Protocol PRN Reason: Sleep Metoprolol Succinate (Toprol Xl Tab*) 100 mg PO DAILY [facility] Last Admin: 09/30/16 08:30 Dose: 100 mg Mometasone Furoate/Formoterol Fumar (Dulera 200/5 Mdi*) 2 puff INH BID [facility] Last Admin: 09/30/16 08:03 Dose: 2 puff Ondansetron HCl (Zofran Inj*) 4 mg IV Q6H PRN PRN Reason: NAUSEA Last Admin: 09/27/16 10:42 Dose: 4 mg Oxycodone HCl (Roxycodone Tab*) 5 mg PO Q4H PRN PRN Reason: PAIN Last Admin: 09/30/16 03:21 Dose: 5 mg Oxycodone HCl (Oxycontin(*)) 20 mg PO BID [facility] Last Admin: 09/30/16 08:30 Dose: 20 mg Pantoprazole Sodium (Protonix Tab (Nf)) 40 mg PO DAILY@0600 [facility] Last Admin: 09/30/16 05:40 Dose: 40 mg Pravastatin Sodium (Pravachol (Nf)) 20 mg PO DAILY [facility] PRN Reason: Protocol Last Admin: 09/30/16 08:29 Dose: 20 mg Senna (Senokot Tab*) 2 tab PO BEDTIME [facility] Last Admin: 09/29/16 19:36 Dose: 2 tab Tiotropium [place] (Spiriva Cap.Inh*) 1 cap INH DAILY [facility] Last Admin: 09/30/16 08:03 Dose: 1 cap Zolpidem Tartrate (Ambien Tab*) 10 mg PO BEDTIME PRN PRN Reason: SLEEP Vital Signs 09/29/16 09/29/16 09/29/16 12:21 13:04 14:03 Temperature 98.3 F Pulse Rate 55 Respiratory 16 14 16 Rate Blood Pressure 137/56 (mmHg) O2 Sat by Pulse 96 Oximetry 09/29/16 09/29/16 09/29/16 15:39 16:03 17:45 Temperature 99.9 F Pulse Rate 65 Respiratory 22 16 14 Rate Blood Pressure 132/51 (mmHg) O2 Sat by Pulse 95 Oximetry 09/29/16 09/29/16 09/29/16 18:45 19:36 19:45 Temperature Pulse Rate Respiratory 16 16 16 Rate Blood Pressure (mmHg) O2 Sat by Pulse Oximetry 09/29/16 09/29/16 09/29/16 20:22 20:30 21:13 Temperature 99.1 F Pulse Rate 64 Respiratory 16 16 14 Rate Blood Pressure 153/46 (mmHg) O2 Sat by Pulse 94 Oximetry 09/29/16 09/30/16 09/30/16 23:56 00:00 03:20 Temperature 98.3 F 98.3 F Pulse Rate 71 58 Respiratory 16 15 Rate Blood Pressure 159/61 159/55 (mmHg) O2 Sat by Pulse 94 94 95 Oximetry 09/30/16 09/30/16 09/30/16 03:21 05:16 07:27 Temperature 98.2 F Pulse Rate 68 Respiratory 14 13 16 Rate Blood Pressure 125/78 (mmHg) O2 Sat by Pulse 97 Oximetry 09/30/16 09/30/16 09/30/16 08:06 08:30 08:46 Temperature Pulse Rate 61 Respiratory 14 16 16 Rate Blood Pressure (mmHg) O2 Sat by Pulse 98 Oximetry 09/30/16 11:37 Temperature 98.3 F Pulse Rate 93 Respiratory 16 Rate Blood Pressure 146/107 (mmHg) O2 Sat by Pulse 93 Oximetry Oxygen Devices in Use Now: None Appearance: 85 yo F in NAD, AAOx3 Eyes: No Scleral Icterus, PERRLA Ears/Nose/Mouth/Throat: NL Teeth, Lips, Gums, Mucous Membranes Moist Neck: NL Appearance and Movements; NL JVP, Trachea Midline Respiratory: Symmetrical Chest Expansion and Respiratory Effort, Clear to Auscultation Cardiovascular: NL Sounds; No Murmurs; No JVD, RRR Abdominal: NL Sounds; No Tenderness; No Distention Lymphatic: No Cervical Adenopathy Extremities: No Clubbing, Cyanosis, - - Bl hand edema. left arm in splint. Skin: No Nodules or Sclerosis Neurological: Alert and Oriented x 3, - - movement in b/l UE limited due to fractures, otherwise neuro exam is nonfocal Result Diagrams: 09/29/16 08:28 09/30/16 06:25 Additional Lab and Data: Lab Results 09/26/16 09/26/16 Range/Units 18:42 18:42 WBC 15.0 H (3.5-10.8) 10^3/ul RBC 4.17 (4.0-5.4) 10^6/ul Hgb 11.2 L (12.0-16.0) g/dl Hct 36 (35-47) % MCV 85 (80-97) fL MCH 27 (27-31) pg MCHC 32 (31-36) g/dl RDW 15 (10.5-15) % Plt Count 311 (150-450) 10^3/ul MPV 8 (7.4-10.4) um3 Neut % (Auto) 80.0 (38-83) % Lymph % (Auto) 13.5 L (25-47) % [place] % (Auto) 4.9 (1-9) % Eos % (Auto) 1.1 (0-6) % Baso % (Auto) 0.5 (0-2) % Absolute Neuts (auto) 12.0 H (1.5-7.7) 10^3/ul Absolute Lymphs (auto) 2.0 (1.0-4.8) 10^3/ul Absolute Monos (auto) 0.7 (0-0.8) 10^3/ul Absolute Eos (auto) 0.2 (0-0.6) 10^3/ul Absolute Basos (auto) 0.1 (0-0.2) 10^3/ul Absolute Nucleated RBC 0.01 10^3/ul Nucleated RBC % 0 Sodium 138 (133-145) mmol/L Potassium 5.6 H (3.5-5.0) mmol/L Chloride 112 H (101-111) mmol/L Carbon Dioxide 19 L (22-32) mmol/L Anion Gap 7 (2-11) mmol/L BUN 43 H (6-24) mg/dL Creatinine 1.61 H (0.51-0.95) mg/dL Est GFR ( Amer) 39.3 (>60) Est GFR (Non-Af Amer) 30.6 (>60) BUN/Creatinine Ratio 26.7 H (8-20) Glucose 141 H (70-100) mg/dL Calcium 9.2 (8.6-10.3) mg/dL Total Bilirubin 0.50 (0.2-1.0) mg/dL AST 10 L (13-39) U/L ALT 8 (7-52) U/L Alkaline Phosphatase 90 (34-104) U/L Total Creatine Kinase 22 (10-223) U/L Troponin I 0.05 H* (<0.04) ng/mL C-Reactive Protein 8.29 H (< 5.00) mg/L Total Protein 7.4 (6.4-8.9) g/dL Albumin 3.8 (3.2-5.2) g/dL Globulin 3.6 (2-4) g/dL Albumin/Globulin Ratio 1.1 (1-3) Microbiology and Other Data: Microbiology 09/28/16 14:15 Urine Culture - Final Urine Escherichia Coli Assess/Plan/Problems-Billing Assessment: 85 yo F with h/o breast cancer, severe CAD, HTN, CKD stage 3, HTN, COPD(not on 02, current smoker) presents after a fall with b/l UE's fractures. - Patient Problems (1) Fracture of upper extremity Comment: B/L: fracture of R humerus and left radial bone. Appreciate Dr. Macedo's consult. cont nonoperative treatment. NWB on both arms PT/OT ongoing oxycontin increased from 10 to 20 mg BID on 09/29/16 with better pain control (2) CAD (coronary artery disease) Comment: severe. Appreciate Dr. Mccormick's eval. Pt would be high risk if she needed surgery cont Plavix Echo shows EF 40%, mod pulm HTN, mod TR and MR Asymptomatic Troponin at 0.05-baseline (3) Hyperkalemia Comment: mild, holding cozaar Tx with Kayexalate on 09/27/16 and on 09/29/16. Placed on renal diet. cont to monitor (4) CKD (chronic kidney disease) stage 3, GFR 30-59 ml/min Comment: creat at baseline (5) HTN (hypertension) Comment: controled Cozaar held due to hyperkalemia Norvasc added to metoprolol on 09/27/16 (6) UTI (urinary tract infection) Comment: Urine cx + E. coli. cont Ceftriaxone started on 09/28/16 cont Glass for now (7) DVT prophylaxis Comment: heparin sc Status and Disposition: inpatient Awaiting STR
[2016-09-30] MEDS: cefTRIAXone VIAL(*) 1,000 MG in NS 0.9% 50 ML* 50 ML IVPB SCH (16:24)
[2016-09-30] MEDS: Senna TAB PO SCH (20:47)
[2016-09-30] MEDS: NS 0.9% 1000 ML* 1,000 ML IV SCH (22:38)
[2016-10-01] MEDS: CMCS: Pantoprazole TAB (NF) 40 MG TAB PO SCH (05:47)
[2016-10-01] MEDS: Heparin VIAL(*) 5000 UNITS/ML VIAL (FIVE THOUSAND) SUBCUT SCH ×3 (05:49→20:56)
[2016-10-01 06:31] LABS: Hematocrit 27 % (35-47); Hemoglobin 8.9 g/dl (12.0-16.0); Mean Corpuscular HGB Conc 33 g/dl (31-36); Mean Corpuscular Hemoglobin 28 pg (27-31); Mean Corpuscular Volume 84 fL (80-97); Mean Platelet Volume 9 um3 (7.4-10.4); Red Blood Count 3.23 10^6/ul (4.0-5.4); Red Cell Distribution Width 15 % (10.5-15); White Blood Count 9.9 10^3/ul (3.5-10.8)
[2016-10-01 06:43] LABS: BUN/Creatinine Ratio 22.9 (8-20); Calcium 8.7 mg/dL (8.6-10.3); EGFR African American 35.7 (>60); EGFR Non-African American 27.8 (>60); Potassium 5.1 mmol/L (3.5-5.0)
[2016-10-01] MEDS ORDERED: Sodium Polystyrene ORAL.SOL* 15 GM/60 ML BTL PO ONE (08:30)
[2016-10-01] MEDS: Mometasone/Formoter 200/5 MDI INH SCH ×2 (08:42→21:23)
[2016-10-01] MEDS: Tiotropium CAP.INH* CAP.INH/18 MCG INH SCH (08:42)
[2016-10-01] MEDS: Ondansetron INJ* 2 MG/ML VIAL IV PRN (08:47)
[2016-10-01] MEDS: Hydrochlorothiazide TAB* 25 MG PO SCH (09:24)
[2016-10-01] MEDS: Clopidogrel TAB* 75 MG PO SCH (09:25)
[2016-10-01] MEDS: CMCS: Pravastatin (NF) 20 MG TAB PO SCH (09:25)
[2016-10-01] MEDS: Metoprolol Succinate XL TAB* 100 MG PO SCH (09:25)
[2016-10-01] MEDS: amLODIPine TAB* 5 MG PO SCH (09:25)
[2016-10-01] MEDS: Docusate CAP* 100 MG PO SCH ×2 (09:25→21:02)
[2016-10-01] MEDS: oxyCODONE SR TAB(*) 20 MG TAB.SR PO SCH (10:04)
[2016-10-01] MEDS: Sertraline* 25 MG TAB PO SCH (11:47)
[2016-10-01] MEDS: oxyCODONE SR TAB(*) 10 MG TAB.SR PO SCH ×2 (11:48→20:55)
[2016-10-01] MEDS: hydrALAZINE IV* 20 MG/ML VIAL IV PRN (12:58)
--- NOTE | 2016-10-01 13:54 | PN ---
Subjective Date of Service: 10/01/16 Interval History: Pt had been refusing to do PT. Is very withdrawn, poor eye contact. c/o no pain. Refuses to get up. Objective Active Medications: Albuterol (Ventolin 2.5 Mg/3 Ml Neb.Pavithra*) 2.5 mg INH Q2H PRN PRN Reason: SOB/WHEEZING Amlodipine Besylate (Norvasc Tab*) 10 mg PO DAILY [facility] Last Admin: 10/01/16 09:25 Dose: 10 mg Clopidogrel Bisulfate (Plavix Tab*) 75 mg PO DAILY [facility] Last Admin: 10/01/16 09:25 Dose: 75 mg Docusate Sodium (Colace Cap*) 200 mg PO BID [facility] Last Admin: 10/01/16 09:25 Dose: 200 mg Heparin Sodium (Porcine) (Heparin Vial(*)) 5,000 units SUBCUT Q8HR [facility] Last Admin: 10/01/16 05:49 Dose: 5,000 units Hydralazine HCl (Apresoline Iv*) 10 mg IV Q4H PRN PRN Reason: Systolic >170 Last Admin: 10/01/16 12:58 Dose: 10 mg Hydrochlorothiazide (Hydrodiuril Tab*) 12.5 mg PO DAILY [facility] Last Admin: 10/01/16 09:24 Dose: 12.5 mg Hydromorphone HCl (Dilaudid Iv*) 0.5 mg IV Q2H PRN PRN Reason: PAIN Last Admin: 09/29/16 19:36 Dose: 0.5 mg Ceftriaxone Sodium 1,000 mg/ (Sodium Chloride) 50 mls @ 200 mls/hr IVPB Q24H [facility] Last Admin: 09/30/16 16:24 Dose: 200 mls/hr Sodium Chloride (Ns 0.9% 1000 Ml*) 1,000 mls @ 75 mls/hr IV PER RATE [facility] Stop: 10/01/16 23:59 Last Admin: 09/30/16 22:38 Dose: 75 mls/hr Melatonin (Melatonin (Nf)) 3 mg PO BEDTIME PRN; Protocol PRN Reason: Sleep Metoprolol Succinate (Toprol Xl Tab*) 100 mg PO DAILY [facility] Last Admin: 10/01/16 09:25 Dose: 100 mg Mometasone Furoate/Formoterol Fumar (Dulera 200/5 Mdi*) 2 puff INH BID [facility] Last Admin: 10/01/16 08:42 Dose: 2 puff Ondansetron HCl (Zofran Inj*) 4 mg IV Q6H PRN PRN Reason: NAUSEA Last Admin: 10/01/16 08:47 Dose: 4 mg Oxycodone HCl (Roxycodone Tab*) 5 mg PO Q4H PRN PRN Reason: PAIN Last Admin: 09/30/16 15:13 Dose: 5 mg Oxycodone HCl (Oxycontin(*)) 10 mg PO BID [facility] Last Admin: 10/01/16 11:48 Dose: 10 mg Pantoprazole Sodium (Protonix Tab (Nf)) 40 mg PO DAILY@0600 [facility] Last Admin: 10/01/16 05:47 Dose: 40 mg Pravastatin Sodium (Pravachol (Nf)) 20 mg PO DAILY [facility] PRN Reason: Protocol Last Admin: 10/01/16 09:25 Dose: 20 mg Senna (Senokot Tab*) 2 tab PO BEDTIME [facility] Last Admin: 09/30/16 20:47 Dose: 2 tab Sertraline HCl (Zoloft*) 25 mg PO DAILY [facility] Last Admin: 10/01/16 11:47 Dose: 25 mg Tiotropium [place] (Spiriva Cap.Inh*) 1 cap INH DAILY [facility] Last Admin: 10/01/16 08:42 Dose: 1 cap Zolpidem Tartrate (Ambien Tab*) 10 mg PO BEDTIME PRN PRN Reason: SLEEP Vital Signs 09/30/16 09/30/16 09/30/16 15:13 15:31 17:13 Temperature 99.6 F Pulse Rate 60 Respiratory 16 14 18 Rate Blood Pressure 144/56 (mmHg) O2 Sat by Pulse 93 Oximetry 09/30/16 09/30/16 09/30/16 19:31 19:40 20:00 Temperature 99.5 F Pulse Rate 63 67 Respiratory 16 16 16 Rate Blood Pressure 160/50 (mmHg) O2 Sat by Pulse 95 95 Oximetry 09/30/16 09/30/16 09/30/16 20:47 22:47 23:31 Temperature 98.8 F Pulse Rate 65 Respiratory 20 20 16 Rate Blood Pressure 157/49 (mmHg) O2 Sat by Pulse 90 Oximetry 10/01/16 10/01/16 10/01/16 00:00 03:47 07:37 Temperature 98.9 F 98.1 F Pulse Rate 65 64 Respiratory 14 16 Rate Blood Pressure 158/49 173/44 (mmHg) O2 Sat by Pulse 95 93 90 Oximetry 10/01/16 10/01/16 10/01/16 08:00 08:44 11:43 Temperature 98.5 F Pulse Rate 60 60 Respiratory 14 14 16 Rate Blood Pressure 182/47 (mmHg) O2 Sat by Pulse 94 95 Oximetry 10/01/16 11:48 Temperature Pulse Rate Respiratory 18 Rate Blood Pressure (mmHg) O2 Sat by Pulse Oximetry Oxygen Devices in Use Now: None Appearance: 85 yo f in nAD, aAOx3 Eyes: No Scleral Icterus, PERRLA Ears/Nose/Mouth/Throat: NL Teeth, Lips, Gums, Mucous Membranes Moist Neck: NL Appearance and Movements; NL JVP, Trachea Midline Respiratory: Symmetrical Chest Expansion and Respiratory Effort, Clear to Auscultation Cardiovascular: NL Sounds; No Murmurs; No JVD, RRR Abdominal: NL Sounds; No Tenderness; No Distention Lymphatic: No Cervical Adenopathy Extremities: No Clubbing, Cyanosis, - - b/l hand edema Skin: No Nodules or Sclerosis, - - b/l arms in slings, left arm in splint Neurological: NL Muscle Strength and Tone, - - b/l UE not examined with ROM due to known fractures Result Diagrams: 10/01/16 06:12 10/01/16 06:12 Additional Lab and Data: Lab Results 09/26/16 09/26/16 Range/Units 18:42 18:42 WBC 15.0 H (3.5-10.8) 10^3/ul RBC 4.17 (4.0-5.4) 10^6/ul Hgb 11.2 L (12.0-16.0) g/dl Hct 36 (35-47) % MCV 85 (80-97) fL MCH 27 (27-31) pg MCHC 32 (31-36) g/dl RDW 15 (10.5-15) % Plt Count 311 (150-450) 10^3/ul MPV 8 (7.4-10.4) um3 Neut % (Auto) 80.0 (38-83) % Lymph % (Auto) 13.5 L (25-47) % [place] % (Auto) 4.9 (1-9) % Eos % (Auto) 1.1 (0-6) % Baso % (Auto) 0.5 (0-2) % Absolute Neuts (auto) 12.0 H (1.5-7.7) 10^3/ul Absolute Lymphs (auto) 2.0 (1.0-4.8) 10^3/ul Absolute Monos (auto) 0.7 (0-0.8) 10^3/ul Absolute Eos (auto) 0.2 (0-0.6) 10^3/ul Absolute Basos (auto) 0.1 (0-0.2) 10^3/ul Absolute Nucleated RBC 0.01 10^3/ul Nucleated RBC % 0 Sodium 138 (133-145) mmol/L Potassium 5.6 H (3.5-5.0) mmol/L Chloride 112 H (101-111) mmol/L Carbon Dioxide 19 L (22-32) mmol/L Anion Gap 7 (2-11) mmol/L BUN 43 H (6-24) mg/dL Creatinine 1.61 H (0.51-0.95) mg/dL Est GFR ( Amer) 39.3 (>60) Est GFR (Non-Af Amer) 30.6 (>60) BUN/Creatinine Ratio 26.7 H (8-20) Glucose 141 H (70-100) mg/dL Calcium 9.2 (8.6-10.3) mg/dL Total Bilirubin 0.50 (0.2-1.0) mg/dL AST 10 L (13-39) U/L ALT 8 (7-52) U/L Alkaline Phosphatase 90 (34-104) U/L Total Creatine Kinase 22 (10-223) U/L Troponin I 0.05 H* (<0.04) ng/mL C-Reactive Protein 8.29 H (< 5.00) mg/L Total Protein 7.4 (6.4-8.9) g/dL Albumin 3.8 (3.2-5.2) g/dL Globulin 3.6 (2-4) g/dL Albumin/Globulin Ratio 1.1 (1-3) Microbiology and Other Data: Microbiology 09/28/16 14:15 Urine Culture - Final Urine Escherichia Coli Assess/Plan/Problems-Billing Assessment: 85 yo F with h/o breast cancer, severe CAD, HTN, CKD stage 3, HTN, COPD(not on 02, current smoker) presents after a fall with b/l UE's fractures. - Patient Problems (1) Fracture of upper extremity Comment: B/L: fracture of R humerus and left radial bone. Appreciate Dr. Macedo's consult. cont nonoperative treatment. NWB on both arms PT/OT ongoing oxycontin increased from 10 to 20 mg BID on 09/29/16, but today pt has no pain , but is refusing to get up, ? oversedation?. will decrease oxycontin back to 10 mg. (2) CAD (coronary artery disease) Comment: severe. Appreciate Dr. Mccormick's eval. Pt would be high risk if she needed surgery cont Plavix Echo shows EF 40%, mod pulm HTN, mod TR and MR Asymptomatic Troponin at 0.05-baseline (3) Hyperkalemia Comment: mild, holding cozaar Tx with Kayexalate on 09/27/16 and on 09/29/16. Placed on renal diet. cont to monitor (4) CKD (chronic kidney disease) stage 3, GFR 30-59 ml/min Comment: creat at baseline (5) HTN (hypertension) Comment: uncontroled Cozaar held due to hyperkalemia Norvasc added to metoprolol on 09/27/16 HZCT added on 10/01/16 (6) UTI (urinary tract infection) Comment: Urine cx + E. coli. cont Ceftriaxone started on 09/28/16 Glass d/c'd on 10/01/16 (7) Depressed affect Comment: spoke with family about poor cooperation and flat affect. Daughter and son agree with starting antidepressant. Zoloft started on 10/01/16 (8) DVT prophylaxis Comment: heparin sc Status and Disposition: inpatient Awaiting STR
[2016-10-01] MEDS: NS 0.9% 1000 ML* 1,000 ML IV SCH (14:04)
[2016-10-01] MEDS: oxyCODONE TAB* 5 MG TAB PO PRN ×2 (14:10→20:55)
[2016-10-01] MEDS: cefTRIAXone VIAL(*) 1,000 MG in NS 0.9% 50 ML* 50 ML IVPB SCH (15:52)
[2016-10-01] MEDS: Senna TAB PO SCH (21:00)
[2016-10-02] MEDS: CMCS: Pantoprazole TAB (NF) 40 MG TAB PO SCH (05:28)
[2016-10-02] MEDS: oxyCODONE TAB* 5 MG TAB PO PRN ×3 (05:28→13:43)
[2016-10-02] MEDS: Heparin VIAL(*) 5000 UNITS/ML VIAL (FIVE THOUSAND) SUBCUT SCH ×2 (05:30→13:42)
[2016-10-02 06:53] LABS: BUN/Creatinine Ratio 22.7 (8-20); Calcium 8.4 mg/dL (8.6-10.3); EGFR African American 33.5 (>60); Potassium 4.3 mmol/L (3.5-5.0)
[2016-10-02] MEDS: Hydrochlorothiazide TAB* 25 MG PO SCH (07:48)
[2016-10-02] MEDS: oxyCODONE SR TAB(*) 10 MG TAB.SR PO SCH (07:49)
[2016-10-02] MEDS: amLODIPine TAB* 5 MG PO SCH (07:50)
[2016-10-02] MEDS: CMCS: Pravastatin (NF) 20 MG TAB PO SCH (07:50)
[2016-10-02] MEDS: Clopidogrel TAB* 75 MG PO SCH (07:51)
[2016-10-02] MEDS: Metoprolol Succinate XL TAB* 100 MG PO SCH (07:51)
[2016-10-02] MEDS: Docusate CAP* 100 MG PO SCH (07:52)
[2016-10-02] MEDS: Tiotropium CAP.INH* CAP.INH/18 MCG INH SCH (07:53)
[2016-10-02] MEDS: Sertraline* 25 MG TAB PO SCH (07:53)
[2016-10-02] MEDS: Mometasone/Formoter 200/5 MDI INH SCH (07:55)
--- NOTE | 2016-10-02 09:53 | PN ---
Progress Note - Progress Note SOAP: Subjective: []Patient seen at bedside. Very flat affect. Denies pain currently in either upper extremity. Objective: [] Vital Signs Temp 98.5 F 10/02/16 07:34 Pulse 57 10/02/16 07:34 Resp 16 10/02/16 09:27 BP 164/39 10/02/16 07:34 Pulse Ox 91 10/02/16 07:34 Intake & Output 10/01/16 10/02/16 10/02/16 18:59 06:59 18:59 Intake Total 1170 1140 Output Total 500 400 Balance 670 740 Weight 168 lb 5 oz Intake: IV Fluids 990 990 NS (0.9%) 990 990 Medicated IV 60 Zofran 60 Oral 120 150 Output: Urine 200 400 Glass 300 Other: Estimated Stool Amount Large mild edema bilaterally upper extremities, remains neuro intact BUE Sling on right UE Splint and all padding removed to check her skin LUE, skin intact ABD pads applied to wrist and elbow under splint which she prefers over the sling. Assessment: []Right proximal humerus fracture Left radial head fracture Plan: []Continue with conservative management for bilateral UE fractures Splint to be removed daily for skin evals, splint or sling prn patient preference Follow up with Dr. Macedo in office 14 days for xray evaluation
--- NOTE | 2016-10-02 12:07 | DS ---
DISCHARGE SUMMARY: DATE OF ADMISSION: 09/26/16 DATE OF DISCHARGE AND TRANSFER: To [facility], DISCHARGE DIAGNOSES: 1. Bilateral upper extremity fractures after a fall. The patient suffers from right humerus fracture and left radial head fracture. 2. Hyperkalemia that resolved, was treated with Kayexalate. 3. Hypertension, uncontrolled. 4. Escherichia coli urinary tract infection. 5. Depression. SECONDARY DIAGNOSES: 1. History of severe three-vessel coronary artery disease. 2. History of chronic obstructive pulmonary disease and smoking. 3. Diabetes, diet controlled. 4. Hypertension. 5. Dyslipidemia. 6. Peripheral vascular disease. 7. History of breast cancer, with recurrence identified 2 months ago. The patient was not appropriate candidate for ___. The patient is status post left- sided mastectomy. 8. History of moderate ischemic cardiomyopathy with ejection fraction of 45%. MEDICATIONS AT DISCHARGE: Include: 1. Plavix 75 mg daily. 2. Colace 200 mg b.i.d. 3. Hydrochlorothiazide 25 mg daily. 4. Boniva 150 mg p.o. monthly. 5. Lactic acid lotion 12% topical apply to skin changes twice a day p.r.n. 6. Toprol-XL 100 mg daily. 7. Dulera 200/5 two inhalation b.i.d. 8. Nitroglycerin sublingually 0.5 mg on a p.r.n. basis. 9. Pravachol 20 mg daily. 10. Seroquel 2 tablets at bedtime. 11. Zoloft 25 mg daily. 12. Ambien 10 mg at bedtime. 13. Amlodipine 10 mg daily. 14. OxyContin 10 mg b.i.d. 15. OxyContin 5 mg every 4 hours p.r.n. CONSULTATIONS DURING THE HOSPITAL STAY: Included Dr. Macedo from Orthopedic Surgery and Dr. Mccormick from Cardiology. DIAGNOSTIC STUDIES/LAB DATA AT DISCHARGE: On 10/02/16, sodium of 138, potassium , chloride 108, carbon dioxide 21, BUN 42, creatinine 1.85. CBC: White blood cell count of 9.9, hemoglobin of 8.9, hematocrit of 27, platelets of 249. Urine cultures positive for 100,000 colonies of E. coli. Shoulder x-ray obtained on 09/26/16, impression: "Osteopenia. No acute osseous injury in the left shoulder." Right shoulder x-ray obtained on 09/26/16, impression: "Angulated fracture of the proximal right humerus." Knee x-ray of the right knee, impression: "Osteopenia. No acute osseous injury." Humerus x-ray on the right showed minimally angulated fracture of the proximal right humerus. Left humerus x-ray on 09/26/16, no acute osseous injury. Transthoracic echocardiogram obtained on 09/27/16 showed EF of 40% to 45% with mild concentric LVH. There was probable pseudonormal diastolic dysfunction. There was evidence of moderate pulmonary hypertension with level of 49 mmHg. There was mild- to-moderate tricuspid regurgitation. Compared with echo from June of 2016, ventricular function not significantly changed, but the degree of mitral regurgitation has increased from mild and tricuspid regurgitation was newly noted. HOSPITALIZATION COURSE: Muna Gerardo is an 85-year-old female with history of ischemic cardiomyopathy with severe coronary artery disease, who has history of breast cancer, status post left breast mastectomy remotely, with history of recurrence of breast cancer on the right in 2014. The patient at that point was deemed not to be a surgical candidate for resection. On 09/26/16, she tripped and fell. She fractured both of her arms as mentioned above. Due to history of recurrent disease, Dr. Mccormick saw the patient in consultation and deemed the patient is a high-risk candidate for surgery. Dr. Macedo saw also the patient in consultation in regards to possibility of orthopedic surgery. Weighing the risks and benefits, the nonoperative management was chosen. The patient is to be nonweightbearing in both arms. A sling or a splint can be used for comfort. During the patient's hospital stay, the patient was noted to have E. coli UTI, which was treated with ceftriaxone and the patient completed a 5-day treatment. The patient has had transient hyperkalemia. Her losartan was held due to that. The patient also was treated with Kayexalate. When she had a bowel movement, her hyperkalemia resolved. The patient appears to be with flat affect with significant depression. Zoloft was also started. Her pain was thoroughly well controlled with OxyContin twice a day and oxycodone on a p.r.n. basis. The patient is being discharged to [facility] for further rehabilitation. At discharge, the patient is recommended to be nonweightbearing on both arms. A sling or splint can be used. Currently, the patient has a splint on the left arm and that needs to be reversed on a daily basis to check the patient's skin. It can be reapplied, but can be removed if not comfortable. The patient also can use bilateral slings. The patient is recommended to have diabetic and cardiac diet. Basic metabolic panel should be drawn in the next few days to follow up the patient's problems with hyperkalemia. The patient also was started on hydrochlorothiazide instead of losartan due to her uncontrolled blood pressure. After discharge, the patient is recommended to follow up with Dr. Macedo in approximately 2 weeks. The patient is also going to be following with primary care provider at [facility] within the next few days. PHYSICAL EXAMINATION AT THE TIME OF DISCHARGE: Blood pressure of 164/39, heart rate of 57 and regular, respiratory rate 16, oxygen saturation 91% on room air, temperature 98.5. General: The patient is a very pleasant 85-year-old female, who has flat affect. The patient is in no acute distress. The patient is alert and oriented x3. HEENT: Head atraumatic, normocephalic. Eyes: Pupils equal, reactive to light and accommodation. Oropharynx clear. Mucosa moist. Neck: Supple. No JVD, no bruit bilaterally. Cardiovascular: Regular rate and rhythm. No murmur. Respiratory: Fine crackles at bilateral bases, otherwise clear. Abdomen: Soft, nontender. Bowel sounds present in all 4 quadrants. Extremities: There is no pedal edema. Pulses are +2 bilaterally. There is no clubbing or cyanosis. There is bilateral hand edema present. The patient has a splint in the left upper extremity. There are ecchymoses on the patient's bilateral dorsal aspects of bilateral hands. Neuro Evaluation: Speech clear. Cranial nerves II through XII grossly intact. Motor strength and range of motion not checked in bilateral upper extremities due to known fractures. Bilateral lower extremities have 5/5 bilaterally. Please note this is a short summary of the patient's hospital stay. Please refer to further medical records for details. TIME SPENT: Approximately 40 minutes was spent on the patient's discharge. CC: Dr. Macedo; Dr. Almanzar; Dr. Hensley; Dr. Mccormick; Dr. Walter; [facility] * [id number]/[facility] #: [id number] [facility]ENTERChiki
[2016-10-02 13:50] VITALS: BP 134/47
== END 2016-10-02 14:20 | DRG 563 ==
LOC: ED 16:12 → SSU 21:43
PROVIDERS: ADMIT Hospitalist; ATTEND Internal Medicine
DX: S42.214A Unspecified nondisplaced fracture of surgical neck of right humerus, initial encounter for closed fracture (principal); N18.4 Chronic kidney disease, stage 4 (severe); E11.22 Type 2 diabetes mellitus with diabetic chronic kidney disease; I36.1 Nonrheumatic tricuspid (valve) insufficiency; I13.10 Hypertensive heart and chronic kidney disease without heart failure, with stage 1 through stage 4 chronic kidney disease, or unspecified chronic kidney disease; E11.42 Type 2 diabetes mellitus with diabetic polyneuropathy; N39.0 Urinary tract infection, site not specified; E87.5 Hyperkalemia; B96.20 Unspecified Escherichia coli [E. coli] as the cause of diseases classified elsewhere; S52.125A Nondisplaced fracture of head of left radius, initial encounter for closed fracture; W18.09XA Striking against other object with subsequent fall, initial encounter; Y92.89 Other specified places as the place of occurrence of the external cause; Y99.2 Volunteer activity; J44.9 Chronic obstructive pulmonary disease, unspecified; E78.5 Hyperlipidemia, unspecified; C50.919 Malignant neoplasm of unspecified site of unspecified female breast; I25.5 Ischemic cardiomyopathy; M85.822 Other specified disorders of bone density and structure, left upper arm; M85.861 Other specified disorders of bone density and structure, right lower leg; F17.210 Nicotine dependence, cigarettes, uncomplicated; I25.10 Atherosclerotic heart disease of native coronary artery without angina pectoris; Z95.5 Presence of coronary angioplasty implant and graft; Z79.02 Long term (current) use of antithrombotics/antiplatelets; Z79.899 Other long term (current) drug therapy; Z88.6 Allergy status to analgesic agent; Z88.8 Allergy status to other drugs, medicaments and biological substances; Z79.891 Long term (current) use of opiate analgesic; Z66 Do not resuscitate; Z80.9 Family history of malignant neoplasm, unspecified
CPT/HCPCS: 36415; 80048; 80053; 81003; 81015; 82550; 83036; 84484; 85025; 85027; 85610; 85730; 86140; 87077; 87086; 87186; 93005; 93306; 94640; 94760; 99406; A9270-GY; J0360; J0696; J1170; J1644; J1940; J2270; J2405

== ENCOUNTER 2016-11-29 11:23 | Observation (INO) | payer MEDICARE, BC ==
[2016-11-29] MEDS ORDERED: NS 0.9% 1000 ML* 1,000 ML IV ONE (12:54)
[2016-11-29 13:06] LABS: Hematocrit 38 % (35-47); Hemoglobin 12.1 g/dl (12.0-16.0); Mean Corpuscular HGB Conc 32 g/dl (31-36); Mean Corpuscular Hemoglobin 26 pg (27-31); Mean Corpuscular Volume 82 fL (80-97); Mean Platelet Volume 9 um3 (7.4-10.4); Red Blood Count 4.67 10^6/ul (4.0-5.4); Red Cell Distribution Width 15 % (10.5-15); White Blood Count 11.7 10^3/ul (3.5-10.8)
[2016-11-29 13:17] LABS: Albumin 3.5 g/dL (3.2-5.2); C Reactive Protein 24.98 mg/L (< 5.00); Calcium 9.8 mg/dL (8.6-10.3); EGFR African American 30.1 (>60); EGFR Non-African American 23.4 (>60); Globulin 3.7 g/dL (2-4); Potassium 3.8 mmol/L (3.5-5.0); Total Bilirubin 0.5 mg/dL (0.2-1.0); Total Protein 7.2 g/dL (6.4-8.9)
--- NOTE | 2016-11-29 13:49 | RAD ---
INDICATION: Diarrhea. COMPARISON: There are no prior studies available for comparison. TECHNIQUE: Supine and decubitus views of the abdomen were obtained. FINDINGS: The small bowel and colon appear nondistended. No free intraperitoneal air is seen. There is a faint 1.5 x 0.7 cm calcific density which projects over the lower pole of the right kidney. IMPRESSION: 1. NO EVIDENCE FOR ACUTE FINDING. 2. POSSIBLE RIGHT RENAL CALCULUS.
[2016-11-29 14:29] LABS: Troponin I 0.05 ng/mL (<0.04)
[2016-11-29] MEDS ORDERED: Diltiazem IV* 5 MG/ML 5 ML VIAL (for loading dose/IV Push) (25 MG) IV SLOW PU ONE (15:50)
[2016-11-29] MEDS ORDERED: Ondansetron INJ* 2 MG/ML VIAL IV PRN (15:51)
[2016-11-29] MEDS ORDERED: Acetaminophen TAB* 325 MG PO PRN (15:51)
[2016-11-29] MEDS ORDERED: Zolpidem TAB* 5 MG PO PRN (15:53)
[2016-11-29] MEDS ORDERED: oxyCODONE TAB* 5 MG TAB PO PRN (15:53)
[2016-11-29 16:03] LABS: Urine Bacteria 3+ (Absent); Urine Bilirubin Negative (Negative); Urine Glucose Negative (Negative); Urine Nitrite Negative (Negative)
[2016-11-29] MEDS: Metoprolol Tartrate TAB* 25 MG PO SCH ×2 (16:12→20:49)
[2016-11-29] MEDS ORDERED: Rivaroxaban TAB(*) 15 MG PO SCH (17:00)
[2016-11-29] MEDS: Mometasone/Formoter 200/5 MDI INH SCH (20:04)
--- NOTE | 2016-11-29 21:04 | HP ---
ADMISSION HISTORY AND PHYSICAL: DATE OF ADMISSION: 11/29/16 PRIMARY CARE PROVIDER: Dr. Almanzar. ADMITTING PROVIDER: SAGRARIO Clark SUPERVISING PHYSICIAN: Dr. Marquita De* (DICTATED BY SAGRARIO CLARK) CHIEF COMPLAINT: Nausea, vomiting, and diarrhea x10 days. HISTORY OF PRESENT ILLNESS: This is an 85-year-old female with stage 3 to 4 chronic kidney disease as well as severe coronary artery disease, being medically managed with an associated cardiomyopathy with the last EF estimated at 40% to 45% as well as known recurrent breast cancer, not currently under treatment as well as hypertension, hyperlipidemia, who is currently participating in subacute rehab at [facility] and was referred to the emergency department for evaluation by covering physician, Dr. Cormier, there. The patient had been experiencing symptoms of nausea, vomiting, and diarrhea with complaints of abdominal cramping and occasional right lower quadrant abdominal pain for the last 10 days. She states that the diarrhea has been improving over the last 24 hours and she has had no diarrhea at all today and the abdominal pain and cramping have also improved. She has been able to tolerate oral intake without vomiting. Apparently, physician at [facility] had ordered labs yesterday and was concerned that her creatinine was a bit higher than her baseline and subsequently referred her to the emergency department for further evaluation. When she reached the emergency department, her EKG demonstrated atrial fibrillation, which is noted to be a new diagnosis. She was mildly tachycardic and hospitalists were subsequently asked to evaluate for possible hospital admission. The patient was last hospitalized in September after a mechanical fall resulting in fracture of both upper extremities. She has been at [facility] since and hopeful for discharge later in November. Regarding cardiac symptoms and history, the patient has not had prior atrial fibrillation. She denied any recent symptoms such as palpitations, chest pain, or shortness of breath. She has had no new lower extremity edema or other cardiac symptoms. PAST MEDICAL HISTORY: 1. Chronic kidney disease, stage 3 to 4. 2. Severe coronary artery disease, deemed nonintervenable and being medically managed, followed by Dr. Hensley. 3. Ischemic cardiomyopathy with EF last measured at 40% to 45%. 4. Recurrent breast cancer - not under current therapy, considered to be an inappropriate surgical candidate for resection. 5. Hypertension. 6. Hyperlipidemia. 7. COPD. PAST SURGICAL HISTORY: 1. Cataract surgery. 2. Corneal transplant. 3. Cardiac stents x2. 4. Left mastectomy. 5. Renal artery stenosis. 6. Appendectomy. 7. Hysterectomy. 8. Left knee arthroscopy. HOME MEDICATIONS: 1. Vitamin D3 50,000 units p.o. weekly. 2. Plavix 75 mg p.o. daily. 3. Hydrochlorothiazide 25 mg p.o. daily. 4. Imodium 2 mg p.o. q.4 hours as needed for diarrhea. 5. Metoprolol succinate 10 mg p.o. daily. 6. Dulera 2 puffs inhaled twice daily. 7. Nitroglycerin 0.4 mg sublingual q.5 minutes as needed for chest pain. 8. Zofran 4 mg p.o. q.8 hours as needed for nausea. 9. Zoloft 50 mg p.o. daily. 10. Simvastatin 10 mg p.o. daily. 11. Ambien 5 mg p.o. at bedtime. 12. Amlodipine 10 mg p.o. daily. 13. Oxycodone 5 mg p.o. q.4 hours as needed for pain. SOCIAL HISTORY: The patient has greater than [id number] smoking history, but quit about 3 months ago. Denies any regular alcohol consumption. She is a current resident at [facility] participating in subacute rehab and has an apartment at [facility] and is hopeful for discharge from rehab, December 22, with plans to return to [facility] at that time. REVIEW OF SYSTEMS: As listed above in HPI, all other systems reviewed and otherwise negative. PHYSICAL EXAMINATION GENERAL: This is an elderly female, who is quite pleasant, lying comfortably in hospital stretcher in no acute distress. VITAL SIGNS: Initial vitals are temperature 99.4 degrees Fahrenheit, pulse 75 beats per minute, respiratory rate 23, oxygen saturation 100% on room air, and blood pressure 130/60 mmHg. HEENT: Head is normocephalic, atraumatic. Mucous membranes are mildly dry. RESPIRATORY: Lungs are clear to auscultation without wheezes, crackles, or rhonchi. CARDIOVASCULAR: Heart has an irregular rhythm, mostly tachycardic. No significant murmurs appreciated. ABDOMEN: Soft and nontender to palpation. EXTREMITIES: No lower extremity edema. PSYCH: The patient is alert and appropriately oriented. SKIN: Limited exam shows no concerning rashes or lesions. DIAGNOSTIC STUDIES/LAB DATA: CBC shows a white blood cell count of 11,700, hemoglobin 12.1 g/dL, and a platelet count of 299,000. Comprehensive metabolic panel shows a sodium of 138 mmol/L; potassium 3.8; BUN of 73; creatinine of 2.03 , baseline creatinine is probably around 1.6 to 1.7. Lactic acid normal at 1.0. Magnesium normal at 2.0. Troponin mildly elevated at 0.05. CRP elevated at 25. Urinalysis demonstrates 3+ leuk esterase and white blood cells, negative for nitrites. Imaging: Abdominal x-ray demonstrates no acute process. EKG shows atrial fibrillation with a rate of approximately 110 beats per minute. Echocardiogram from August of 2016 showed mild LVH, ejection fraction of 40% to 45% with diastolic dysfunction, moderate pulmonary hypertension, and moderate mitral regurg and tricuspid regurg. 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 1. Atrial fibrillation - this is a new diagnosis for the patient in the setting of rather prolonged gastrointestinal illness. Electrolytes are within normal limits at this time, but she does appear to be mildly dry with associated acute kidney injury. We will give 1 dose of IV diltiazem at this point and then follow up with oral metoprolol tartrate for appropriate rate control and start on renally adjusted Xarelto for anticoagulation. Could consider cardioversion, but she is tolerating the rhythm well and is unsure of when the atrial fibrillation started exactly. Anticipate that she may convert back to sinus rhythm spontaneously with simple rehydration. 2. Acute on chronic renal insufficiency - her BUN has risen significantly up into the 70s and creatinine is above baseline. This is likely due to hypovolemia from gastrointestinal losses. 3. Elevated troponin - this is an indeterminate elevation and she has had similar troponin elevations in the past in the setting of chronic kidney disease and known cardiomyopathy. She is not having any acute cardiac complaints, but does have new atrial fibrillation at this time. We will trend her troponins. 4. Viral gastrointestinal illness - sounds like most of her complaints have resolved. She has not had any diarrhea today. No complaints of abdominal pain , cramping, or nausea. She has a benign abdominal exam. 5. Ischemic cardiomyopathy with ejection fraction of 40% to 45%. 6. Severe coronary artery disease - determined to be nonintervenable. Currently being medically managed, is followed by Dr. Hensley. 7. Recurrent breast cancer - the patient has been told that she is too high surgical risk for resection. She has been seen by Oncology, no treatments otherwise offered, per the patient report this is a slow-growing malignancy. Her primary cancer was approximately 25 years ago at which point she underwent mastectomy. 8. Hypertension - the patient is normotensive in the emergency department and her home antihypertensives will be continued at this time. 9. Hyperlipidemia. 10. Chronic obstructive pulmonary disease without acute exacerbation. 11. DNR/DNI with signed MOLST. 12. Healthcare proxy is the patient's daughter, Deyanira Fountain. DISPOSITION: The patient is being admitted to observation status with anticipated length of stay of 1 midnight with discharge back to [facility] tomorrow. SAGRARIO CLARK CC: Dr. Almanzar; Dr. Cormier* [id number]/[facility] #: [id number] [facility] HOSPITALChiki
[2016-11-30] MEDS: Metoprolol Tartrate TAB* 25 MG PO SCH ×2 (04:33→10:21)
[2016-11-30 05:40] LABS: Hematocrit 31 % (35-47); Hemoglobin 9.8 g/dl (12.0-16.0); Mean Corpuscular HGB Conc 32 g/dl (31-36); Mean Corpuscular Hemoglobin 26 pg (27-31); Mean Corpuscular Volume 81 fL (80-97); Mean Platelet Volume 9 um3 (7.4-10.4); Red Blood Count 3.83 10^6/ul (4.0-5.4); Red Cell Distribution Width 15 % (10.5-15)
[2016-11-30 05:42] LABS: Add Diff/Slide Review? Slide Review Added; Comments Flag Yes
[2016-11-30 05:57] LABS: BUN/Creatinine Ratio 38.4 (8-20); Calcium 8.9 mg/dL (8.6-10.3); EGFR Non-African American 34.2 (>60); Potassium 3.6 mmol/L (3.5-5.0)
[2016-11-30] MEDS: Mometasone/Formoter 200/5 MDI INH SCH (07:38)
[2016-11-30] MEDS ORDERED: Sertraline* 50 MG TAB PO SCH (09:00)
[2016-11-30] MEDS ORDERED: Clopidogrel TAB* 75 MG PO SCH (09:00)
[2016-11-30] MEDS ORDERED: Atorvastatin* 10 MG TAB PO SCH (09:00)
[2016-11-30] MEDS ORDERED: amLODIPine TAB* 5 MG PO SCH (09:00)
[2016-11-30] MEDS ORDERED: Metoprolol Tartrate TAB* 25 MG PO ONE (09:59)
[2016-11-30] MEDS ORDERED: Loperamide CAP* 2 MG PO ONE (09:59)
[2016-11-30 10:00] VITALS: BP 103/54
[2016-11-30] MEDS ORDERED: Cephalexin CAP* 500 MG PO ONE (10:05)
--- NOTE | 2016-11-30 10:40 | DS ---
ADDENDUM NOW INCLUDED ON THIS REPORT DATE OF ADMISSION: 11/29/2016. DATE OF DISCHARGE: 11/30/2016. PRIMARY CARE PROVIDER: Dr. Almanzar. PRIMARY SOCIAL STUDIES DEPARTMENT CHAIR: Dr. Hensley. DISCHARGING PROVIDER: SAGRARIO Clark. SUPERVISING PHYSICIAN: Dr. Elvin Blake* (dictated by SAGRARIO Clark). PRIMARY DISCHARGE DIAGNOSES: 1. New atrial fibrillation. 2. Recent viral GI illness resulting in hypovolemia and acute kidney injury, now resolved. 3. Elevated troponin - this is indeterminate level of elevation and remains stable, no evidence of acute coronary syndrome, troponin leak likely secondary to cardiomyopathy and poor clearing with her history of chronic kidney disease. SECONDARY DISCHARGE DIAGNOSES: 1. Chronic kidney disease stage three. 2. Severe coronary artery disease deemed non-intervenable, being medically managed and followed by Dr. Hensley. 3. Ischemic cardiomyopathy with an ejection fraction of 40 to 45 percent. 4. Recurrent breast cancer, not currently being treated. 5. Hypertension. 6. Hyperlipidemia. 7. COPD without acute exacerbation. HOSPITAL IMAGIN. Abdominal x-ray shows no acute process. 2. EKG showed atrial fibrillation with a rate of about 110 beats per minute. 3. Review of recent echocardiogram from August 2016 shows mild LVH with an ejection fraction of 40 to 45 percent, as well as diastolic dysfunction, moderate pulmonary hypertension and moderate mitral and tricuspid regurg. DISCHARGE MEDICATIONS: 1. Vitamin B3 50,000 units p.o. daily. 2. Plavix 75 mg p.o. daily. 3. Hydrochlorothiazide 25 mg p.o. daily - instructions to hold for three days - resume on 12/04/2016. 4. Imodium 2 mg p.o. q.4 hours as needed for diarrhea. 5. Metoprolol Tartrate 75 mg p.o. twice daily. 6. Dulera two puffs inhaled twice daily. 7. Nitroglycerin 0.4 mg sublingual q.5 minutes as needed for chest pain. 8. Zofran 4 mg p.o. q.8 hours as needed for nausea. 9. Xarelto 15 mg p.o. daily. 10. Zoloft 50 mg p.o. daily. 11. Simvastatin 10 mg p.o. daily. 12. Ambien 5 mg p.o. at bedtime. 13. Amlodipine 10 mg p.o. daily. 14. Oxycodone 5 mg p.o. q.4 hours as needed for pain. Medication changes: 1. Hold hydrochlorothiazide, october resume 12/04/2016. 2. Discontinue Metoprolol Succinate and start Metoprolol Tartrate as outlined above. 3. Start Xarelto. HOSPITAL COURSE: This is an 85-year-old female who was hospitalized in the end of August who had at that point had sustained a mechanical fall resulting in fractures of both arms and she was discharged from here to [facility] for subacute rehab. She is still participating in rehab at [facility]. She had what sounded like a viral gastroenteritis where she had nausea, vomiting and diarrhea for approximately nine days. She was evaluated by assisted physician Dr. Cormier who had performed labs the day prior to admission and was concerned about her hydration status and she was subsequently referred to the emergency department for further evaluation. At that time of evaluation, the patient states that her diarrhea had resolved approximately 24 hours prior. She had no further abdominal pain or cramping, nausea or vomiting. She was left feeling quite weak and had not been able to participate in her rehab activities for about a week prior to her hospital admission. While in the emergency department, her CBD was unremarkable with the exception of just a mild leukocytosis. Comprehensive metabolic panel showed an exacerbation of her chronic kidney disease which appeared to be prerenal in nature with a BUN of 73 and a creatinine of 2.03. Her baseline creatinine is closer to 1.5 to 1.6 or so. Electrolytes, including magnesium were otherwise normal. On EKG, however, there was noted atrial fibrillation, which is a new rhythm for this patient. She was mildly tachycardic with heart rates of 110 to 120 beats per minute and for this reason she was admitted to a period of observation. The patient was rehydrated with lactated ringers. Her renal function improved back to baseline and she felt that her strength improved somewhat as well. She was monitored on telemetry overnight and remains in atrial fibrillation, heart rate close to 100 beats per minute. She was agreeable to starting Xarelto which is initiated at renally adjusted dose and rate was mostly controlled with oral Metoprolol Tartrate. She did not require a drip. DISPOSITION AND FOLLOW-UP PLAN: The patient is being discharged back to [facility] to resume rehab with plans for her to be discharged from there in about three weeks back to her apartment at [facility]. Medication changes are outlined above. She requires follow-up with her primary care provider within several days of discharge. Recommend holding her Hydrochlorothiazide through the weekend and can resume on Sunday the and she will require follow-up with Dr. Hensley in approximately two weeks at which point discussion for cardioversion versus just further rate control can be made. SAGRARIO CLARK ADDENDUM: Please note the patient's urinalysis was abnormal on admission, but she had no associated symptoms, so was not treated empirically. Contacted microbiology lab prior to discharge and there is some initial growth that appears to be gram - negative, possible E. coli. We will treat her for an uncomplicated UTI with 3 days of Keflex. Culture will need to be followed up on to ensure appropriate antibiotic use based on sensitivity. SAGRARIO CLARK CC: Ryan Morris; Dr. Almanzar; Dr. Hensley* [id number]/[facility] #: [id number]/[facility] #: [id number] ERIK
--- NOTE | 2016-11-30 12:20 | ED ---
Gray Saez Billy, scribed for Chavo Bennett MD on 11/29/16 at 1457 . Abdominal Pain/Female - HPI Summary HPI Summary: The patient is a 85 year old female presenting to [facility] with complaints of intermittent abdominal cramping for approximately 9 days. She reports a sharp, shooting pain in the lower abdomen. She states that this pain resolves shortly after bowel movements. Patient reports diarrhea. She denies melena, hematochezia , mucus in the diarrhea, nausea, or vomiting. Denies fever, chest pain, shortness of breath, and chills. Reports no recent antibiotic treatments. She is a patient at a rehabilitation facility due to frequent falls. - History of Current Complaint Chief Complaint: EDAbdPain Stated Complaint: DIARRHEA, LAB COUNT OFF Time Seen by Provider: 11/29/16 11:30 Hx Obtained From: Patient Onset/Duration: Gradual Onset Timing: Intermittent Episode Lasting Severity Initially: Moderate Severity Currently: Moderate Character: Sharp Alleviating Factor(s): Bowel Movement Associated Signs and Symptoms: Positive: Diarrhea. Negative: Fever, Constipation, Blood in Stool, Urinary Symptoms, Nausea, Vomiting Allergies/Adverse Reactions: Allergies Allergy/AdvReac Type Severity Reaction Status Date / Time Acetaminophen [From Tylenol] Allergy Anaphylatic Verified 11/27/13 00:33 Shock Aspirin [From Excedrin] Allergy Anaphylatic Verified 11/27/13 00:34 Shock Iodine Allergy Anaphylatic Verified 11/27/13 00:34 Shock Home Medications: Home Medications Cholecalciferol [Vitamin D3] 50,000 unit PO WEEKLY 11/29/16 [History Confirmed 11/29/16] Loperamide CAP* [Imodium CAP*] 2 mg PO Q4H PRN 11/29/16 [History Confirmed 11/29] Mometasone/Formoter 200/5 MDI* [Dulera 200/5 MDI*] 2 puff INH BID 11/29/16 [ History Confirmed 11/29/16] Ondansetron TAB* [Zofran 4 MG Tab*] 4 mg PO Q8HR PRN 11/29/16 [History Confirmed 11/29/16] Sertraline* [Zoloft*] 50 mg PO DAILY 11/29/16 [History Confirmed 11/29/16] Simvastatin TAB(NF) [Zocor 10 MG (NF)] 10 mg PO DAILY 11/29/16 [History Confirmed 11/29/16] Zolpidem TAB* [Ambien*] 5 mg PO BEDTIME PRN 11/29/16 [History Confirmed 11/29/16 ] oxyCODONE TAB* [Roxycodone TAB 5 mg*] 5 mg PO Q4H PRN MDD 30 mg 11/29/16 [ History Confirmed 11/29/16] PMH/Surg Hx/FS Hx/Imm Hx Cardiovascular History: Reports: Hx Coronary Artery Disease, Hx Hypertension, Hx Myocardial Infarction Denies: Hx Angina, Hx Hypercholesterolemia, Hx Valvular Heart Disease Respiratory History: Denies: Hx Asthma, Hx Chronic Obstructive Pulmonary Disease (COPD) Musculoskeletal History: Reports: Hx Arthritis, Hx Osteoporosis Sensory History: Reports: Hx Contacts or Glasses, Hx Vision Problem - corneal transplant, Other Sensory Impairments - corneal transplant Denies: Hx Hearing Aid Opthamlomology History: Reports: Hx Contacts or Glasses, Hx Vision Problem - corneal transplant, Other Sensory Impairments - corneal transplant - Cancer History Cancer Type, Location and Year: breast- 1990 Hx Chemotherapy: No Hx Radiation Therapy: No Hx Palliative Cancer Treatment: No - Surgical History Surgery Procedure, Year, and Place: 1990- left [id number]- corneal [id number]- hysterectomy, CORONARY STENTS Hx Anesthesia Reactions: No Infectious Disease History: No Infectious Disease History: Denies: Traveled Outside the [place] in Last 30 Days - Family History Known Family History: Positive: Cardiac Disease - Social History Alcohol Use: Rare Substance Use Type: Reports: None Hx Tobacco Use: Yes Smoking Status (MU): Current Every Day Smoker Type: Cigarettes Amount Used/How Often: 3-7 packs per week Length of Time of Smoking/Using Tobacco: 55 yrs Have You Smoked in the Last Year: Yes Review of Systems Negative: Fever, Chills Negative: Chest Pain Negative: Shortness Of Breath Positive: Abdominal Pain, Diarrhea. Negative: Vomiting, Nausea Negative: dysuria All Other Systems Reviewed And Are Negative: Yes Physical Exam - Summary Physical Exam Summary: VITAL SIGNS: Reviewed. GENERAL: Patient is an elderly, fragile female who is lying comfortable in the stretcher. Patient is not in any acute respiratory distress. HEAD AND FACE: Normocephalic and atraumatic. EYES: PERRLA, EOMI x 2, No injected conjunctiva. EARS: Hearing grossly intact. Ear canals and tympanic membranes are WNL. MOUTH: Oropharynx within normal limits. NECK: Supple, trachea is midline, no adenopathy, no JVD. CHEST: Symmetric, no tenderness at palpation. Irregular rate and rhythm with some tachycardia. LUNGS: Clear to auscultation bilaterally. No wheezing or crackles. CVS: RRR, S1 and S2 present, no murmurs or gallops appreciated. ABDOMEN: Soft, non-tender. No signs of distention. Increased bowel sounds. No rebound no guarding, and no masses palpated. No abdominal bruit or pulsations. EXTREMITIES: FROM in all major joints, no edema, no cyanosis or clubbing. NEURO: Alert and oriented x 3. No acute neurological deficits. Speech is normal. SKIN: Dry and warm. There is increased skin turgor. Triage Information Reviewed: Yes Vital Signs On Initial Exam: Initial Vitals Temp Pulse BP Pulse Ox 99.4 F 75 130/60 100 11/29/16 11:26 11/29/16 11:26 11/29/16 11:26 11/29/16 11:26 Vital Signs Reviewed: Yes - Ashley Coma Scale Coma Scale Total: 15 Diagnostics - Vital Signs Vital Signs Temp Pulse Resp BP Pulse Ox 11/29/16 14:00 122 24 99 11/29/16 13:00 54 22 124/75 98 11/29/16 12:32 98.8 F 124 20 124/61 99 11/29/16 12:30 120 21 124/61 98 11/29/16 12:28 46 23 112/80 99 11/29/16 12:14 59 100 11/29/16 12:12 96/71 11/29/16 11:26 99.4 F 75 130/60 100 - Laboratory Lab Results: Lab Results 11/29/16 11/29/16 11/29/16 Range/Units 12:50 12:50 12:50 WBC 11.7 H (3.5-10.8) 10^3/ul RBC 4.67 (4.0-5.4) 10^6/ul Hgb 12.1 (12.0-16.0) g/dl Hct 38 (35-47) % MCV 82 (80-97) fL MCH 26 L (27-31) pg MCHC 32 (31-36) g/dl RDW 15 (10.5-15) % Plt Count 299 (150-450) 10^3/ul MPV 9 (7.4-10.4) um3 Neut % (Auto) 77.5 (38-83) % Lymph % (Auto) 13.9 L (25-47) % Park % (Auto) 6.9 (1-9) % Eos % (Auto) 1.2 (0-6) % Baso % (Auto) 0.5 (0-2) % Absolute Neuts (auto) 9.1 H (1.5-7.7) 10^3/ul Absolute Lymphs (auto) 1.6 (1.0-4.8) 10^3/ul Absolute Monos (auto) 0.8 (0-0.8) 10^3/ul Absolute Eos (auto) 0.1 (0-0.6) 10^3/ul Absolute Basos (auto) 0.1 (0-0.2) 10^3/ul Absolute Nucleated RBC 0.01 10^3/ul Nucleated RBC % 0.1 Sodium 138 (133-145) mmol/L Potassium 3.8 (3.5-5.0) mmol/L Chloride 108 (101-111) mmol/L Carbon Dioxide 19 L (22-32) mmol/L Anion Gap 11 (2-11) mmol/L BUN 73 H (6-24) mg/dL Creatinine 2.03 H (0.51-0.95) mg/dL Est GFR ( Amer) 30.1 (>60) Est GFR (Non-Af Amer) 23.4 (>60) BUN/Creatinine Ratio 36.0 H (8-20) Glucose 116 H (70-100) mg/dL Lactic Acid 1.0 (0.5-2.0) mmol/L Calcium 9.8 (8.6-10.3) mg/dL Magnesium 2.0 (1.9-2.7) mg/dL Total Bilirubin 0.50 (0.2-1.0) mg/dL AST 15 (13-39) U/L ALT 18 (7-52) U/L Alkaline Phosphatase 78 (34-104) U/L Troponin I 0.05 H* (<0.04) ng/mL C-Reactive Protein 24.98 H (< 5.00) mg/L Total Protein 7.2 (6.4-8.9) g/dL Albumin 3.5 (3.2-5.2) g/dL Globulin 3.7 (2-4) g/dL Albumin/Globulin Ratio 0.9 L (1-3) Amylase 31 (29-103) U/L Lipase 41 (11.0-82.0) U/L Result Diagrams: 11/30/16 05:08 11/30/16 05:08 Lab Statement: Any lab studies that have been ordered have been reviewed, and results considered in the medical decision making process. Abdominal Pain Fem Course/Dx - Course Course Of Treatment: The patient is a 85 year old female presenting to [facility] with complaints of intermittent abdominal cramping for approximately 9 days. She reports a sharp, shooting pain in the lower abdomen. She states that this pain resolves shortly after bowel movements. Patient reports diarrhea. She denies melena, hematochezia, mucus in the diarrhea, nausea, or vomiting. Denies fever, chest pain, shortness of breath, and chills. Reports no recent antibiotic treatments. She is a patient at a rehabilitation facility due to frequent falls. Test results shows a WBC of 11.7 without bandemia, increased BUN /creatinine consistent with chronic renal failure. Glucose of 116, and troponin of 0.05. CRP is 24.98. UA is contaminated. In the ED course, the patient was given IV fluids for rehydration. EKG shows that the patient has new-onset atrial fibrillation which is rate-controlled. Because of the atrial fibrillation , weakness, and diarrhea, I discussed my findings with Dr. De who accepted the patient for admission. The patient has not been able to give any stool sample yet, however as soon as she does, we will send for cultures, fecal leukocytes, and C. diff. The patient is hemodynamically stable, A&Ox3. - Diagnoses Differential Diagnosis: Positive: Urinary Tract Infection, Other - Arrithmia, Gastroenteritis Provider Diagnoses: Atrial fibrillation, Nausea vomiting and diarrhea - Provider Notifications Discussed Care Of Patient With: Marquita De - Accepts admission Time Discussed With Above Provider: 14:44 Discharge - Discharge Plan Condition: Stable Disposition: ADMITTED TO [facility] documentation as recorded by the Gray burton Billy accurately reflects the service I personally performed and the decisions made by me, Chavo Bennett MD.
--- NOTE | 2016-12-01 01:44 | DS ---
CC: Servando Stephens Howe DISCHARGE SUMMARY: ADDENDUM: Please note the patient's urinalysis was abnormal on admission, but she had no associated symptoms, so was not treated empirically. Contacted microbiology lab prior to discharge and there is some initial growth that appears to be gram- negative, possible E. coli. We will treat her for an uncomplicated UTI with 3 days of Keflex. Culture will need to be followed up on to ensure appropriate antibiotic use based on sensitivity. SAGRARIO CLARK [id number]/[facility] #: [id number] ERIK
== END 2016-11-30 10:46 ==
LOC: ED 11:23 → MEDTELE 15:10
PROVIDERS: ADMIT Hospitalist; ATTEND Internal Medicine
DX: I48.91 Unspecified atrial fibrillation (principal); R74.8 Abnormal levels of other serum enzymes; I12.9 Hypertensive chronic kidney disease with stage 1 through stage 4 chronic kidney disease, or unspecified chronic kidney disease; N18.3 Chronic kidney disease, stage 3 (moderate); I25.10 Atherosclerotic heart disease of native coronary artery without angina pectoris; C50.919 Malignant neoplasm of unspecified site of unspecified female breast; E78.5 Hyperlipidemia, unspecified; J44.9 Chronic obstructive pulmonary disease, unspecified; I42.9 Cardiomyopathy, unspecified; I25.5 Ischemic cardiomyopathy; Z79.899 Other long term (current) drug therapy; Z88.6 Allergy status to analgesic agent; Z87.891 Personal history of nicotine dependence
CPT/HCPCS: 36415; 74020; 80048; 80053; 81003; 81015; 82150; 83605; 83630; 83690; 83735; 84484; 85025; 86140; 87045; 87046; 87077; 87086; 87186; 87493; 87641; 87899; 93005; 94640; 96361; 96374; 99285; A9270-GY; G0378

== ENCOUNTER 2016-12-04 09:03 | Inpatient (IN) | payer MEDICARE, BC ==
[2016-12-04] MEDS ORDERED: NS 0.9% 1000 ML* 1,000 ML IV ONE (09:38)
[2016-12-04 10:28] LABS: Hematocrit 33 % (35-47); Hemoglobin 10.1 g/dl (12.0-16.0); Mean Corpuscular HGB Conc 31 g/dl (31-36); Mean Corpuscular Hemoglobin 25 pg (27-31); Mean Corpuscular Volume 81 fL (80-97); Mean Platelet Volume 9 um3 (7.4-10.4); Red Blood Count 4.02 10^6/ul (4.0-5.4); Red Cell Distribution Width 16 % (10.5-15); White Blood Count 13.7 10^3/ul (3.5-10.8)
--- NOTE | 2016-12-04 10:33 | RAD ---
HISTORY: Palpitations COMPARISONS: November 27, 2013 VIEWS: 2: Frontal dual-energy and lateral views of the chest. FINDINGS: CARDIOMEDIASTINAL SILHOUETTE: The cardiomediastinal silhouette is normal. HANNA: The hanna are normal. PLEURA: The costophrenic angles are sharp. No pleural abnormalities are noted. LUNG PARENCHYMA: There is hyperinflation with flattening of the diaphragm and expansion of the AP diameter of the chest. There is minimal linear atelectasis of left lung base ABDOMEN: The upper abdomen is clear. There is no subphrenic gas. BONES AND SOFT TISSUES: No bone or soft tissue abnormalities are noted. OTHER: None. IMPRESSION: 1. HYPERINFLATION, CONSISTENT WITH COPD. 2. MINIMAL LINEAR ATELECTASIS OF THE LEFT LUNG BASE.
[2016-12-04 10:45] LABS: ALT 11 U/L (7-52); AST 10 U/L (13-39); Albumin 2.9 g/dL (3.2-5.2); Alkaline Phosphatase 62 U/L (34-104); Anion Gap 10 mmol/L (2-11); BUN/Creatinine Ratio 24.3 (8-20); Blood Urea Nitrogen 37 mg/dL (6-24); CO2 Carbon Dioxide 19 mmol/L (22-32); Calcium 8.9 mg/dL (8.6-10.3); Chloride 106 mmol/L (101-111); Creatine Kinase < 10 U/L (10-223); EGFR Non-African American 32.7 (>60); Globulin 3.6 g/dL (2-4); Glucose 112 mg/dL (70-100); Potassium 4.1 mmol/L (3.5-5.0); Sodium 135 mmol/L (133-145); Total Protein 6.5 g/dL (6.4-8.9)
[2016-12-04 10:46] LABS: Troponin I 0.03 ng/mL (<0.04)
[2016-12-04 11:14] LABS: T4 7.61 mcg/mL (6.09-12.23)
[2016-12-04 11:15] LABS: TSH (Thyroid Stimulating Horm) 1.84 mcIU/mL (0.34-5.60)
[2016-12-04] MEDS ORDERED: Ondansetron INJ* 2 MG/ML VIAL IV PRN (11:51)
[2016-12-04] MEDS ORDERED: cefTRIAXone VIAL(*) 1,000 MG in NS 0.9% 50 ML* 50 ML IVPB SCH (11:52)
[2016-12-04] MEDS ORDERED: NS 0.9% 1000 ML* 1,000 ML IV SCH (12:00)
[2016-12-04] MEDS ORDERED: Albuterol 2.5 MG/3 ML NEB.SOL* (0.083%) INH PRN (12:03)
[2016-12-04] MEDS ORDERED: oxyCODONE TAB* 5 MG TAB PO PRN (12:04)
[2016-12-04] MEDS ORDERED: Zolpidem TAB* 5 MG PO PRN (12:04)
[2016-12-04] MEDS ORDERED: cefTRIAXone(*) 1 GM ADVAN ONE (12:06)
--- NOTE | 2016-12-04 12:24 | HP ---
HISTORY AND PHYSICAL:* ADDENDUM: DATE OF ADMISSION: 12/04/16 Mrs. Gerardo is an 85-year-old female with history of recent diagnosis of atrial fibrillation. The patient was noted to have a urinary tract infection but the bacteria that actually grew sensitivities of her urine cultures was not sensitive to the antibiotic she was taking. She presents today complaining of flank pain and fever. She is going to be admitted with a diagnosis of pyelonephritis. For further details of the patient's presentation and plan, please see history and physical dictated by Papa Downing NP on 12/04/16 with which I agree. [id number] #: [id number] MTDD
[2016-12-04 12:47] LABS: Urine Bacteria Absent (Absent); Urine Bilirubin Negative (Negative); Urine Glucose 1+(50 mg/dL) (Negative); Urine Nitrite Negative (Negative)
--- NOTE | 2016-12-04 13:17 | RAD ---
Indication: Fever, flank pain. Comparison: November 05, 2008 CT. Technique: Renal ultrasound. Report: 11.5 x 4.2 x 4.6 cm RIGHT kidney demonstrates normal cortical echogenicity. Moderate cortical atrophy with cortical thickness 0.7 cm. 1.4 x 1.3 cm partial staghorn calculus at the lower pole is grossly unchanged from the prior CT. Negative for hydronephrosis. No conspicuous focal renal lesions. 11.0 x 5.0 x 5.0 cm LEFT kidney demonstrates normal cortical echogenicity. Moderate cortical atrophy with cortical thickness 0.8 cm. No conspicuous stones, hydronephrosis, or focal renal lesions. IMPRESSION: 1.4 x 1.3 cm partial staghorn calculus lower pole RIGHT kidney without associated hydronephrosis. Moderate bilateral renal cortical atrophy.
--- NOTE | 2016-12-04 13:33 | ED ---
Mercedez Saez SooYoung, scribed for Chavo Bennett MD on 12/04/16 at 0924 . Palpitations / Dysrhythmia - HPI Summary HPI Summary: An 85 y/o F KEVIN presents to ED with c/o racing palpitations onset this AM [employer]. Pt was seen in ED 5 days ago and admitted, dx: a-fib and n/v/d. Pt states her heart "was going wild" this morning. Associated sx: SOB. Denies CP, diarrhea. - History of Current Complaint Chief Complaint: EDFever Time Seen by Provider: 12/04/16 09:07 Hx Obtained From: Patient, Medical Records Onset/Duration: Sudden Onset, Lasting Hours, Still Present Timing: Constant Severity Initially: Moderate Severity Currently: Moderate Character: Fast Associated Signs & Symptoms: Shortness of Breath - Allergy/Home Medications Allergies/Adverse Reactions: Allergies Allergy/AdvReac Type Severity Reaction Status Date / Time Acetaminophen [From Tylenol] Allergy Anaphylatic Verified 11/27/13 00:33 Shock Aspirin [From Excedrin] Allergy Anaphylatic Verified 11/27/13 00:34 Shock Iodine Allergy Anaphylatic Verified 11/27/13 00:34 Shock Home Medications: Home Medications Bisacodyl SUPP* [Dulcolax Supp*] 10 mg MI DAILY PRN 12/04/16 [History Confirmed 12/04/16] Simvastatin TAB(NF) [Zocor(NF)] 20 mg PO EVERY OTHER DAY 12/04/16 [History Confirmed 12/04/16] PMH/Surg Hx/FS Hx/Imm Hx Previously Healthy: No Cardiovascular History: Reports: Hx Coronary Artery Disease, Hx Hypertension, Hx Myocardial Infarction Denies: Hx Angina, Hx Hypercholesterolemia, Hx Valvular Heart Disease Respiratory History: Denies: Hx Asthma, Hx Chronic Obstructive Pulmonary Disease (COPD) Musculoskeletal History: Reports: Hx Arthritis, Hx Osteoporosis Sensory History: Reports: Hx Contacts or Glasses, Hx Vision Problem - corneal transplant, Other Sensory Impairments - corneal transplant Denies: Hx Hearing Aid Opthamlomology History: Reports: Hx Contacts or Glasses, Hx Vision Problem - corneal transplant, Other Sensory Impairments - corneal transplant Psychiatric History: Reports: Hx Depression - Cancer History Cancer Type, Location and Year: breast- 1990 Hx Chemotherapy: No Hx Radiation Therapy: No Hx Palliative Cancer Treatment: No - Surgical History Surgery Procedure, Year, and Place: 1990- left [id number]- corneal [id number]- hysterectomy, CORONARY STENTS Hx Anesthesia Reactions: No - Family History Known Family History: Positive: Unknown, Cardiac Disease - Social History Occupation: Retired Lives: [place] Alcohol Use: Rare Hx Substance Use: No Substance Use Type: Reports: None Hx Tobacco Use: Yes Smoking Status (MU): Current Every Day Smoker Type: Cigarettes Amount Used/How Often: 3-7 packs per week Length of Time of Smoking/Using Tobacco: 55 yrs Have You Smoked in the Last Year: Yes Review of Systems Negative: Fever Positive: Palpitations. Negative: Chest Pain Positive: Shortness Of Breath Negative: Diarrhea All Other Systems Reviewed And Are Negative: Yes Physical Exam - Summary Physical Exam Summary: VITAL SIGNS: Reviewed. GENERAL: Patient is a well-developed and nourished FEMALE who is lying comfortable in the stretcher. Patient is not in any acute respiratory distress. HEAD AND FACE: No signs of trauma. No ecchymosis, hematomas or skull depressions. No sinus tenderness. EYES: PERRLA, EOMI x 2, No injected conjunctiva, no nystagmus. EARS: Hearing grossly intact. Ear canals and tympanic membranes are within normal limits. MOUTH: ORAL MUCOSA DRY. NECK: Supple, trachea is midline, no adenopathy, no JVD, no carotid bruit, no c- spine tenderness, neck with full ROM. CHEST: Symmetric, no tenderness at palpation LUNGS: Clear to auscultation bilaterally. No wheezing or crackles. CVS: IRREGULAR RATE AND RHYTHM, S1 and S2 present, no murmurs or gallops appreciated. ABDOMEN: Soft, non-tender. No signs of distention. No rebound, no guarding, and no masses palpated. Bowel sounds are normal. EXTREMITIES: FROM in all major joints, no edema, no cyanosis or clubbing. NEURO: Alert and oriented x 3. No acute neurological deficits. Speech is normal and follows commands. SKIN: Dry and warm Triage Information Reviewed: Yes Vital Signs On Initial Exam: Initial Vitals Temp Pulse Resp BP Pulse Ox 98.9 F 121 18 108/67 92 12/04/16 09:13 12/04/16 09:13 12/04/16 09:13 12/04/16 09:13 12/04/16 09:13 Vital Signs Reviewed: Yes Diagnostics - Vital Signs Vital Signs Temp Pulse Resp BP Pulse Ox 12/04/16 10:19 93 12/04/16 09:13 98.9 F 121 18 108/67 92 - Laboratory Lab Results: Lab Results 12/04/16 Range/Units 10:15 WBC 13.7 H (3.5-10.8) 10^3/ul RBC 4.02 (4.0-5.4) 10^6/ul Hgb 10.1 L (12.0-16.0) g/dl Hct 33 L (35-47) % MCV 81 (80-97) fL MCH 25 L (27-31) pg MCHC 31 (31-36) g/dl RDW 16 H (10.5-15) % Plt Count 298 (150-450) 10^3/ul MPV 9 (7.4-10.4) um3 Neut % (Auto) 82.5 (38-83) % Lymph % (Auto) 8.9 L (25-47) % [place] % (Auto) 7.1 (1-9) % Eos % (Auto) 0.7 (0-6) % Baso % (Auto) 0.8 (0-2) % Absolute Neuts (auto) 11.3 H (1.5-7.7) 10^3/ul Absolute Lymphs (auto) 1.2 (1.0-4.8) 10^3/ul Absolute Monos (auto) 1.0 H (0-0.8) 10^3/ul Absolute Eos (auto) 0.1 (0-0.6) 10^3/ul Absolute Basos (auto) 0.1 (0-0.2) 10^3/ul Absolute Nucleated RBC 0 10^3/ul Nucleated RBC % 0 Result Diagrams: 12/04/16 10:15 12/04/16 10:15 Lab Statement: Any lab studies that have been ordered have been reviewed, and results considered in the medical decision making process. - Radiology CXR Xray Interpretation: Positive (See Comments) - IMPRESSION: 1. HYPERINFLATION, CONSISTENT WITH COPD. 2. MINIMAL LINEAR ATELECTASIS OF THE LEFT LUNG BASE. Radiology Interpretation Completed By: Radiologist - EKG 1 EKG Rhythm: Atrial Fibrillation - 112 bpm EKG Interpretation: read at 0918 Course/Dx - Course Assessment/Plan: An 85 y/o F KEVIN presents to ED with c/o racing palpitations onset this AM [employer]. Pt was seen in ED 5 days ago and admitted, dx: a-fib and n/v/ d. Pt states her heart "was going wild" this morning. Associated sx: SOB. Denies CP, diarrhea. Blood work shows. EKG: A. fib w/ RVR at 112 BPM. CXR: Hyperinflation consistent with COPD. Minimal atelectasis. In the ED course she was given IV fluids since she seems to dehydrated. Still waiting for a UA. I requested a cath urine since patient has Hx of fever and CXR shows no pneumonia. I discussed my case and findings with Dr. Skaggs who accepted the patient for admission. She is hemodynamically stable and is A+O x 3. She was given PO metoprolol for better control of the HR. - Diagnoses Differential Diagnosis/HQI/PQRI: Positive: Other - A fib w/ RVR, Pneumonia, UTI Provider Diagnoses: Atril fib w/ RVR, Fever, Renal failure - Physician Notifications Discussed Care Of Patient With: Papa Downing - hospitalist Time Discussed With Above Provider: 11:18 Instructed by Provider To: MD Will See In ED Discharge - Discharge Plan Condition: Stable Disposition: ADMITTED TO [facility] The documentation as recorded by the Mercedez burton SooYoung accurately reflects the service I personally performed and the decisions made by me, Chavo Bennett MD.
[2016-12-04] MEDS: Metoprolol Tartrate IV* 1 MG/ML 5 ML VIAL IV PRN ×2 (14:42→20:03)
--- NOTE | 2016-12-04 15:01 | HP ---
ATTENDING PHYSICIAN ADDENDUM INCLUDED ON THIS REPORT HISTORY AND PHYSICAL: DATE OF ADMISSION: 12/04/16 PRIMARY CARE PROVIDER: Dr. Almanzar. ATTENDING PHYSICIAN: Charity Skaggs MD * (dictated by Papa Downing NP) CHIEF COMPLAINT: 1. Shortness of breath. 2. Palpitations. 3. Fever. HISTORY OF PRESENT ILLNESS: Ms. Gerardo is an 85-year-old female patient who was just here a few days ago. She was admitted, was found to be in AFib with RVR, found to have a UTI, sent home on Keflex. She comes back in today stating that yesterday she noticed that she was more short of breath. She was noted to be requiring oxygen which was new for her. She states that she has not had a cough, she states that she has not been feeling any orthopnea. She states that she always sleeps with 2 pillows, nothing has changed there. She states that she has not had any chest pain. She states that she started feeling palpitations today. According to the son who is with her, there was a report of a fever of 103. The patient states she just has been feeling weak. She has also been having some pain on her left side. The senior care was concerned today, she is residing at [facility] for subacute rehab from upper extremity fracture. There was concern that she may be getting dehydrated again and they sent her to the hospital to be evaluated. PAST MEDICAL HISTORY: Significant for: 1. CKD stage 3. 2. CAD. 3. Cardiomyopathy, EF of 40% to 45%. 4. Breast cancer. 5. Hypertension. 6. Hyperlipidemia. 7. COPD. 8. AFib. PAST SURGICAL HISTORY: 1. She has had cataract resection. 2. Corneal transplant. 3. Cardiac cath, 2 stents. 4. Left mastectomy. 5. Renal artery stenosis with stenting. 6. Appendectomy. 7. Hysterectomy. 8. Left knee arthroscopy. HOME MEDICATIONS: Include: 1. Dulcolax suppository 10 mg RI daily. 2. Plavix 75 mg daily. 3. Hydrochlorothiazide 25 mg daily. 4. Imodium 2 mg every 4 hours as needed. 5. Metoprolol 75 mg p.o. b.i.d. 6. Dulera 1 puff inhaled b.i.d. 7. Nitro 0.4 mg sublingual q.5 minutes x3 for chest pain. 8. Zofran 4 mg every 8 hours as needed. 9. Xarelto 15 mg p.o. daily. 10. Zoloft 50 mg daily. 11. Zocor 20 mg p.o. every other day. 12. Amlodipine 10 mg daily. 13. Ambien 5 mg at bedtime as needed. 14. Oxycodone 5 mg p.o. every 4 hours as needed. ALLERGIES TO MEDICATIONS: Include TYLENOL, ASPIRIN, and IODINE. FAMILY HISTORY: Her father's history was reviewed, it is unknown. She states she really did not talk to her father. Mother's history, according to the patient, her mother had elephantitis. SOCIAL HISTORY: She is a former smoker, she quit about 3 months ago. She does not drink any alcohol. Surrogate decision maker is her son, Kolby. REVIEW OF SYSTEMS: There is documented fever. There is no significant weight change. There is no double vision. No ear discharge. No rhinorrhea. No sore throat. No thyroid enlargement. She denied chest pain. She did admit to having some dyspnea on exertion. She admit to having some palpitations. There was no orthopnea. No nocturnal dyspnea. There was no abdominal pain. There was some left-sided flank pain. There was no nausea or vomiting. No dysuria. No frequency. There was no seizures. No loss of consciousness. No pruritus. No skin ulcerations. Review of 14 systems was completed, all others negative. PHYSICAL EXAMINATION GENERAL: At this time, Ms. Gerardo is an 85-year-old female patient. She is sitting in the ER stretcher. She does not appear to be in any acute distress. VITAL SIGNS: Blood pressure of 108/67 with a pulse of 121, respirations 18, O2 sat 93%, and a temperature of 98.9. HEENT: Head is atraumatic and normocephalic. Eyes; EOMs are intact. Sclerae anicteric. Throat; oral mucosa appeared to be dry. No oropharyngeal erythema. NECK: Supple. LUNGS: Clear to auscultation bilaterally. No wheezes, rales, or rhonchi. HEART: Heart sounds S1 and S2. Irregularly irregular rate. No murmurs, rubs, or gallops. ABDOMEN: Soft, flat, nontender. She did have some left-sided CVA tenderness. EXTREMITIES: Pulses are 2+ throughout. She can move all 4 extremities; 5/5 strength. SKIN: Intact. NEUROLOGIC: She is awake, alert, and oriented x3. Tongue was midline. [employer] And Se[employer] Manager were equal. No gross focal deficits. LABORATORY DATA: Labs today revealed a WBC of 13.7, RBC of 4.02, hemoglobin of 10.1, hematocrit of 33, platelet count 298,000. Sodium was 135, potassium 4.1, chloride 106, bicarb 19, BUN 37, creatinine 1.52, glucose 112, lactate 1.1 , calcium 8.9, total bili 1.3, AST 10, ALT 11, CK less than 10, CK-MB 1.3, troponin 0.03, BNP 1020, albumin of 2.9, TSH 1.84. IMAGING: She had a chest x-ray obtained today. Under my review, I did not appreciate any acute infiltrates. Radiology read this as hyperinflation consistent with COPD. Minimal linear atelectasis of the left lung base. She did have an EKG obtained today as well, which reveal atrial fibrillation with a rate of 112, no ST elevation or T-wave inversions. It was reviewed with previous EKG, appears to be similar. Old medical records were reviewed. ASSESSMENT AND PLAN: Mrs. Gerardo is an 85-year-old female patient, coming into the ER today with complaints of left-sided flank pain and discomfort. In addition to this, also complaining of having palpitations and feeling shortness of breath. She will be admitted under inpatient status for: 1. Sepsis. Again, suspect, although I do not have a urine yet that she may have a urinary tract infection again and probably a pyelonephritis. She was just here a few days ago, microbiology then grew out Klebsiella. She was sent home on Keflex and after final cultures had come back, it was noted that the Keflex was not adequate to treat the Klebsiella. According to the patient, she did not receive any more antibiotics, so at this point she has a fever of 103, she most likely again probably has pyelonephritis. I am waiting the urine to confirm that. I am going to get a renal ultrasound as well. If the urine comes back for whatever reason to be completely normal, that will make pyelo less likely, but I have a high suspicion, so I am going to start Rocephin and we will de la rosa culture her. She has already got a liter of fluids which is normal saline at 100 an hour and they are moving forward. I will continue to follow. 2. Atrial fibrillation with rapid ventricular response. I suspect the shortness of breath she is having is probably because of the fact that she is septic. In addition to this, she is in atrial fibrillation with rapid ventricular response which is probably being driven by the fact that she has an underlying infection, so I am going to treat the underlying infection, put her on telemetry, we will give her p.r.n. Lopressor and we will continue to follow the atrial fibrillation and continue the Xarelto. 3. Chronic kidney disease stage 3 to 4, is at baseline. We will follow. 4. Coronary artery disease. She is on Plavix. She is on statin and beta- feliciano, continue. 5. Cardiomyopathy. We will diurese as needed and follow her fluid status closely. Continue medication prescribed. 6. Breast cancer. Follow up with primary. 7. Hypertension. Continue medications prescribed with hold parameters. 8. Hyperlipidemia. Continue medications prescribed. 9. Chronic obstructive pulmonary disease. Continue Dulera and p.r.n. albuterol. 10. DVT prophylaxis. She is on Xarelto. 11. Code status: She is a DNR. 12. Fluid, electrolytes, nutrition. She can have a heart-healthy diet. TIME SPENT: Time spent on this admission was 60 minutes, greater than half the time was spent [id number] with the patient obtaining my history and physical; other half the time was spent going over the plan of care with the patient and implementing the plan of care. I discussed the plan of care with my attending, Dr. Skaggs, she is in agreement. PAPA DOWNING NP ADDENDUM: Mrs. Gerardo is an 85-year-old female with history of recent diagnosis of atrial fibrillation. The patient was noted to have a urinary tract infection but the bacteria that actually grew sensitivities of her urine cultures was not sensitive to the antibiotic she was taking. She presents today complaining of flank pain and fever. She is going to be admitted with a diagnosis of pyelonephritis. For further details of the patient's presentation and plan, please see history and physical dictated by Papa Downing NP on 12/04/16 with which I agree. CHARITY SKAGGS MD CC: Dr. Almanzar* [id number]/CPS #: [id number] #: [id number] ERIK
[2016-12-04] MEDS ORDERED: Metoprolol Tartrate IV* 1 MG/ML 5 ML VIAL IV ONE (17:59)
[2016-12-04] MEDS ORDERED: Digoxin IV* 0.5 MG/2 ML AMP (0.25 MG/ML) IV SLOW PU ONE (18:50)
[2016-12-04] MEDS ORDERED: Digoxin TAB* 0.25 MG PO ONE (19:28)
[2016-12-04] MEDS ORDERED: Morphine INJ* 2 MG/ML 1 ML SYRINGE IV ONE (19:45)
[2016-12-04] MEDS: Mometasone/Formoter 200/5 MDI INH SCH (19:45)
[2016-12-04] MEDS ORDERED: Furosemide IV* 10 MG/ML VIAL (40 MG) IV SLOW PU ONE (19:45)
--- NOTE | 2016-12-04 20:28 | RAD ---
INDICATION: Shortness of breath. COMPARISON: Comparison is made with a prior study of the same date from approximately 10 hours earlier. TECHNIQUE: A portable view of the chest was obtained. FINDINGS: The heart is mildly enlarged and unchanged. There is diffuse prominence of the interstitial markings which have progressed from the prior exam. There is a trace right pleural effusion. IMPRESSION: FINDINGS MOST CONSISTENT WITH CONGESTIVE HEART FAILURE.
[2016-12-04] MEDS ORDERED: Metoprolol Tartrate TAB* 25 MG PO SCH (21:00)
[2016-12-04] MEDS: Nitroglycerin 2% OINT* 1 GM PAK TOPICAL SCH (21:53)
[2016-12-05] MEDS: Nitroglycerin 2% OINT* 1 GM PAK TOPICAL SCH ×3 (05:30→19:42)
[2016-12-05 06:07] LABS: Hematocrit 29 % (35-47); Hemoglobin 9.3 g/dl (12.0-16.0); Mean Corpuscular HGB Conc 32 g/dl (31-36); Mean Corpuscular Hemoglobin 26 pg (27-31); Mean Corpuscular Volume 81 fL (80-97); Mean Platelet Volume 9 um3 (7.4-10.4); Red Blood Count 3.57 10^6/ul (4.0-5.4); Red Cell Distribution Width 15 % (10.5-15); White Blood Count 14.3 10^3/ul (3.5-10.8)
[2016-12-05 06:18] LABS: BUN/Creatinine Ratio 25.5 (8-20); Calcium 8.7 mg/dL (8.6-10.3); EGFR African American 45.8 (>60); EGFR Non-African American 35.6 (>60); Potassium 3.7 mmol/L (3.5-5.0)
[2016-12-05] MEDS: Metoprolol Tartrate IV* 1 MG/ML 5 ML VIAL IV PRN (06:29)
[2016-12-05] MEDS: Metoprolol Tartrate TAB* 100 MG TAB PO SCH ×2 (08:24→19:42)
[2016-12-05] MEDS: Clopidogrel TAB* 75 MG PO SCH (08:24)
[2016-12-05] MEDS: Sertraline* 50 MG TAB PO SCH (08:24)
[2016-12-05] MEDS: Rivaroxaban TAB(*) 15 MG PO SCH (08:24)
[2016-12-05] MEDS: amLODIPine TAB* 5 MG PO SCH (08:24)
[2016-12-05] MEDS: Mometasone/Formoter 200/5 MDI INH SCH (09:04)
[2016-12-05] MEDS ORDERED: Digoxin IV* 0.5 MG/2 ML AMP (0.25 MG/ML) IV SLOW PU ONE (09:25)
[2016-12-05] MEDS: cefTRIAXone VIAL(*) 1,000 MG in NS 0.9% 50 ML* 50 ML IVPB SCH (12:33)
--- NOTE | 2016-12-05 14:42 | PN ---
Subjective Date of Service: 12/05/16 Interval History: This is an 85 yo female recently admitted with new onset afib and discharged with Keflex for an associated UTI. Final culture demonstrated that bacteria was not sensitive to Keflex and she returned with new fevers and malaise. She has been empirically treated with Ceftriaxone. She has been persistently tachycardic since admission, but responded well to a dose of IV digoxin this am with associated improvement in her SOB. Objective Active Medications: Albuterol (Ventolin 2.5 Mg/3 Ml Neb.Pavithra*) 2.5 mg INH Q2H PRN PRN Reason: SOB/WHEEZING Amlodipine Besylate (Norvasc Tab*) 10 mg PO DAILY [facility] Last Admin: 12/05/16 08:24 Dose: 10 mg Atorvastatin Calcium (Lipitor*) 10 mg PO EVERY OTHER DAY [facility] Clopidogrel Bisulfate (Plavix Tab*) 75 mg PO DAILY [facility] Last Admin: 12/05/16 08:24 Dose: 75 mg Digoxin (Lanoxin Tab*) 0.25 mg PO 1700 [facility] Ceftriaxone Sodium 1,000 mg/ (Sodium Chloride) 50 mls @ 200 mls/hr IVPB Q24HR@ 1200 [facility] Last Admin: 12/05/16 12:33 Dose: 200 mls/hr Metoprolol Tartrate (Lopressor Iv*) 5 mg IV Q6H PRN PRN Reason: HEART RATE/PULSE GREATER THAN: Last Admin: 12/05/16 06:29 Dose: 5 mg Metoprolol Tartrate (Lopressor Tab*) 100 mg PO BID [facility] Last Admin: 12/05/16 08:24 Dose: 100 mg Nitroglycerin (Nitroglycerin 2% Oint*) 1 inch TOPICAL Q8H [facility] Last Admin: 12/05/16 12:33 Dose: 1 inch Ondansetron HCl (Zofran Inj*) 4 mg IV Q6H PRN PRN Reason: NAUSEA Oxycodone HCl (Roxycodone Tab*) 5 mg PO Q4H PRN PRN Reason: PAIN - BREAKTHROUGH Last Admin: 12/04/16 19:27 Dose: 5 mg Rivaroxaban (Xarelto(*)) 15 mg PO DAILY [facility] Last Admin: 12/05/16 08:24 Dose: 15 mg Sertraline HCl (Zoloft*) 50 mg PO DAILY [facility] Last Admin: 06/06/17 08:24 Dose: 50 mg Zolpidem Tartrate (Ambien Tab*) 5 mg PO BEDTIME PRN PRN Reason: INSOMNIA Vital Signs: Temp Pulse Resp BP Pulse Ox 97.6 F 89 20 139/48 96 12/05/16 11:10 12/05/16 11:18 12/05/16 11:10 12/05/16 11:10 12/05/16 11:10 Appearance: Well appearing elderly female in NAD Respiratory: Symmetrical Chest Expansion and Respiratory Effort, Clear to Auscultation Cardiovascular: NL Sounds; No Murmurs; No JVD, RRR Extremities: No Edema Skin: No Rash or Ulcers Neurological: Alert and Oriented x 3 Result Diagrams: 12/05/16 05:47 12/05/16 05:47 Additional Lab and Data: . Microbiology and Other Data: Microbiology 12/04/16 11:51 Urine Culture - Final Urine No Growth (<1,000 CFU/mL) Assess/Plan/Problems-Billing Assessment: This is an 85 yo female with CKD, CAD, ischemic cardiomyopathy with EF 40-45%, HTN, HLD, BCA, COPD who presented with fever and malaise with some SOB. Admitted with sepsis secondary to UTI and afib with RVR. - Patient Problems (1) Sepsis Comment: Secondary to UTI Blood cultures neg Cont ceftriaxone (2) Atrial fibrillation with RVR Comment: Responded well to digoxin Cont oral dig after one time oral dose yesterday Will check BMP and serum level tomorrow Avoid CCB with depressed EF Considered cardiology consult for cardioversion, she is now rate controlled and has an appt with Dr Dallas Tello and wishes to wait for his recommendations Anticoagulated with Xarelto (3) Cardiomyopathy Comment: Ischemic with EF 40-45% Acute episode of what was likely pulm edema last night, now resolved (4) HTN (hypertension) Comment: Normotensive (5) COPD (chronic obstructive pulmonary disease) Comment: No acute exacerbation (6) CAD (coronary artery disease) Comment: Severe, managed medically No evidence of ACS (7) CKD (chronic kidney disease) stage 3, GFR 30-59 ml/min Comment: stage III Cr near baseline (8) Fracture of upper extremity Comment: Bilateral fractures end of Aug, dc'd early September Still at [facility] for rehab Patient is still NWB on RUE and pt was hoping to have that advanced Reviewed with ortho team, Dr Macedo not available, will have to wait for f/u scheduled for December 22 to advance WB status (9) DNR (do not resuscitate) (10) DVT prophylaxis Comment: Anticoagulated with Xarelto Status and Disposition: Inpatient. Anticipate possible dc tomorrow.
[2016-12-05] MEDS ORDERED: Digoxin TAB* 0.25 MG PO SCH (17:00)
[2016-12-06] MEDS: Nitroglycerin 2% OINT* 1 GM PAK TOPICAL SCH (04:58)
[2016-12-06 05:19] LABS: Hematocrit 29 % (35-47); Hemoglobin 9.3 g/dl (12.0-16.0); Mean Corpuscular HGB Conc 32 g/dl (31-36); Mean Corpuscular Hemoglobin 26 pg (27-31); Mean Corpuscular Volume 81 fL (80-97); Mean Platelet Volume 8 um3 (7.4-10.4); Red Blood Count 3.61 10^6/ul (4.0-5.4); Red Cell Distribution Width 15 % (10.5-15); White Blood Count 10.5 10^3/ul (3.5-10.8)
[2016-12-06 05:43] LABS: BUN/Creatinine Ratio 24.3 (8-20); Calcium 8.8 mg/dL (8.6-10.3); Digoxin 1.8 ng/ml (0.8-2.0); EGFR African American 46.2 (>60); EGFR Non-African American 35.9 (>60); Potassium 3.5 mmol/L (3.5-5.0)
[2016-12-06 08:49] VITALS: BP 146/59
[2016-12-06] MEDS ORDERED: Atorvastatin* 10 MG TAB PO SCH (09:00)
[2016-12-06] MEDS: amLODIPine TAB* 5 MG PO SCH (09:00)
[2016-12-06] MEDS: Clopidogrel TAB* 75 MG PO SCH (09:00)
[2016-12-06] MEDS: Rivaroxaban TAB(*) 15 MG PO SCH (09:01)
[2016-12-06] MEDS: Metoprolol Tartrate TAB* 100 MG TAB PO SCH (09:01)
[2016-12-06] MEDS: Sertraline* 50 MG TAB PO SCH (09:01)
--- NOTE | 2016-12-06 10:22 | DS ---
CC: Ryan; Dr. Almanzar; Dr. Hensley* DATE OF ADMISSION: 12/04/16 DATE OF DISCHARGE: 12/06/16 PRIMARY CARE PROVIDER: Dr. Almanzar PRIMARY MAT WEAVER: Dr. Hensley DISCHARGING PROVIDER: SAGRARIO Clark SUPERVISING PHYSICIAN: Dr. Elvin Blake *(dictated by SAGRARIO Clark) PRIMARY DISCHARGE DIAGNOSES: 1. Sepsis secondary to urinary tract infection without bacteremia. 2. Atrial fibrillation with rapid ventricular rate. SECONDARY DISCHARGE DIAGNOSES: 1. Ischemic cardiomyopathy with EF of 40-45% without acute exacerbation. 2. Hypertension. 3. Coronary artery disease, which is quite severe and managed medically, followed by Dr. Hensley, without acute coronary syndrome, complicating her hospital stay. 4. Chronic obstructive pulmonary disease without acute exacerbation. 5. Stage III chronic kidney disease with GFR near baseline. 6. Fracture of both upper extremities, including the right proximal humerus and left radial head, approximately ten weeks ago, followed by Dr. Macedo. DISCHARGE MEDICATIONS: 1. Dulcolax suppository 10 mg per rectum daily as needed for constipation. 2. Cefdinir 300 mg po twice daily x 3 days. 3. Plavix 75 mg po daily. 4. Digoxin 0.125 mg po daily. 5. Hydrochlorothiazide 25 mg po daily. 6. Imodium 2 mg po every 4 hours as needed for diarrhea. 7. Metoprolol tartrate 100 mg po twice daily. 8. Dulera two puffs inhaled twice daily. 9. Nitroglycerin 0.4 mg sublingual q 5 minutes as needed for chest pain. 10. Zofran 4 mg po q 8 hours as needed for nausea. 11. Xarelto 15 mg po daily. 12. Zoloft 50 mg po daily. 13. Simvastatin 20 mg po every other day. 14. Ambien 5 mg po at bedtime as needed for insomnia. 15. Amlodipine 10 mg po daily. 16. Oxycodone 5 mg po q 4 hours as needed for pain. MEDICATION CHANGES: 1. Cefdinir x 3 days. 2. Start Digoxin. 3. Increase Metoprolol. HOSPITAL IMAGIN. Chest x-ray - demonstrates hyperinflation consistent with COPD, perhaps a linear atelectasis of the left lung base. No other acute findings. 2. Renal ultrasound - shows a partial staghorn calculus of the lower pole of the right kidney without associated hydronephrosis. 3. Chest x-ray - shows some prominence of the interstitial markings progressed from prior exam and trace pleural effusion. 4. EKG - shows atrial fibrillation with a rapid rate in the 120s. HOSPITAL COURSE: This is an 85-year-old female with severe coronary artery disease that has been deemed non-intervenable with an associated ischemic cardiomyopathy with an ejection fraction of 40-45% as well as coronary artery disease, hypertension, hyperlipidemia, COPD, and a relatively new diagnosis of atrial fibrillation who was hospitalized just about a week prior with new-onset atrial fibrillation after an acute viral gastroenteritis. Patient was largely asymptomatic with her prior atrial fibrillation. She was started on anticoagulation and rate control medications, and was also noted to have a urinary tract infection. Preliminary culture results were available at the time of discharge. She was empirically treated with Keflex with instructions to follow up on final culture and sensitivity results. Final culture grew Klebsiella resistant to first-generation cephalosporins, and patient subsequently returned with fever presumed to be of urinary origin. Patient was also noted to have a heart rate in the 120s and 130s, still in atrial fibrillation. Patient was subsequently admitted to the hospital with diagnosis of sepsis of presumed urinary origin as well as atrial fibrillation with rapid ventricular rate. Based on prior sensitivities, patient was empirically treated with Ceftriaxone. Blood cultures remained negative, and repeat urine culture, in fact, was also negative. But, the patient clinically improved, including resolution of her leukocytosis with Ceftriaxone. A renal ultrasound was performed, which showed no hydronephrosis. The patient's heart rate was a bit more difficult to control. Initially, she responded to IV Lopressor intermittently. Eventually, she responded to Digoxin loading and heart rate has been averaging in the 80s for about the last 24 hours prior to discharge. Patient did have one episode of shortness of breath that was more acute, likely associated with some pulmonary edema that was likely rate mediated, and responded to diuresis, morphine and nitro. She is now asymptomatic now that she is rate controlled. Discussed with patient considering cardioversion and inpatient cardiology consult. Patient is established with Dr. Hensley for cardiology care and wished to defer to his opinion, and she has a scheduled appointment with him on Sunday, which she is planning to keep. She is tolerating atrial fibrillation rhythm but simply wasn't tolerating the rate and feels much better that she is rate controlled. FOLLOW-UP PLAN AND DISCHARGE DISPOSITION: Patient is returning to [facility] where she's been completing rehab following bilateral upper extremity fractures that occurred the end of August. She has a pending follow up with Dr. Macedo for later this month where she hopes that she'll be able to advance from a non- weight-bearing status of the right upper extremity. She is instructed to keep her appointment with Dr. Hensley for Sunday. And, seeing as she's been newly started on Digoxin, serum level is 1.8 at the time of discharge, recommend a repeat basic metabolic panel with serum Digoxin level in approximately one week. Patient requires three additional days of antibiotics and being discharged with Cefdinir. SAGRARIO CLARK [id number]/[facility] #: [id number] ERIK
[2016-12-06] MEDS: cefTRIAXone VIAL(*) 1,000 MG in NS 0.9% 50 ML* 50 ML IVPB SCH (11:15)
== END 2016-12-06 12:08 | DRG 872 ==
LOC: ED 09:03 → MEDTELE 11:48
PROVIDERS: ADMIT Internal Medicine; ATTEND Physician Assistant
DX: A41.9 Sepsis, unspecified organism (principal); J90 Pleural effusion, not elsewhere classified; I48.91 Unspecified atrial fibrillation; J44.9 Chronic obstructive pulmonary disease, unspecified; N18.3 Chronic kidney disease, stage 3 (moderate); F32.9 Major depressive disorder, single episode, unspecified; I12.9 Hypertensive chronic kidney disease with stage 1 through stage 4 chronic kidney disease, or unspecified chronic kidney disease; Z94.7 Corneal transplant status; I25.10 Atherosclerotic heart disease of native coronary artery without angina pectoris; M81.0 Age-related osteoporosis without current pathological fracture; M19.90 Unspecified osteoarthritis, unspecified site; E78.5 Hyperlipidemia, unspecified; N20.0 Calculus of kidney; Z66 Do not resuscitate; I25.5 Ischemic cardiomyopathy; Z88.8 Allergy status to other drugs, medicaments and biological substances; Z88.6 Allergy status to analgesic agent; I25.2 Old myocardial infarction; Z85.3 Personal history of malignant neoplasm of breast; Z90.710 Acquired absence of both cervix and uterus; Z90.12 Acquired absence of left breast and nipple; Z95.5 Presence of coronary angioplasty implant and graft; Z82.49 Family history of ischemic heart disease and other diseases of the circulatory system; Z98.49 Cataract extraction status, unspecified eye; Z84.89 Family history of other specified conditions; Z79.02 Long term (current) use of antithrombotics/antiplatelets; Z79.01 Long term (current) use of anticoagulants; S42.201D Unspecified fracture of upper end of right humerus, subsequent encounter for fracture with routine healing; S52.122D Displaced fracture of head of left radius, subsequent encounter for closed fracture with routine healing; Z87.891 Personal history of nicotine dependence
CPT/HCPCS: 36415; 71010; 71020; 76775; 80048; 80053; 80162; 81003; 81015; 82550; 82553; 83605; 83880; 84436; 84443; 84484; 85025; 85610; 87040; 87086; 93005; 94640; 94760; A9270-GY; J0696; J1160; J1940; J2270; J2405

== ENCOUNTER 2017-03-29 10:08 | Inpatient (IN) | payer MEDICARE, OTHER ==
[2017-03-29 11:26] LABS: Hematocrit 27 % (35-47); Hemoglobin 8.2 g/dl (12.0-16.0); Mean Corpuscular HGB Conc 30 g/dl (31-36); Mean Corpuscular Hemoglobin 23 pg (27-31); Mean Corpuscular Volume 77 fL (80-97); Mean Platelet Volume 8 um3 (7.4-10.4); Red Blood Count 3.54 10^6/ul (4.0-5.4); Red Cell Distribution Width 19 % (10.5-15); White Blood Count 10.5 10^3/ul (3.5-10.8)
[2017-03-29 11:44] LABS: Troponin I 0.03 ng/mL (<0.04)
[2017-03-29 11:46] LABS: Albumin 3.3 g/dL (3.2-5.2); BUN/Creatinine Ratio 19.9 (8-20); Calcium 8.8 mg/dL (8.6-10.3); EGFR African American 30.4 (>60); EGFR Non-African American 23.6 (>60); Globulin 3.4 g/dL (2-4); Potassium 4.7 mmol/L (3.5-5.0); Total Protein 6.7 g/dL (6.4-8.9)
--- NOTE | 2017-03-29 11:48 | RAD ---
HISTORY: Shortness of breath COMPARISONS: December 04, 2016 VIEWS: 4: Frontal dual-energy and lateral views of the chest. FINDINGS: CARDIOMEDIASTINAL SILHOUETTE: The cardiomediastinal silhouette is stable. HANNA: The hanna are normal. PLEURA: There are small bilateral pleural effusions. LUNG PARENCHYMA: There is hyperinflation with flattening of the diaphragm and expansion of the AP diameter of the chest. There is patchy alveolar opacification lung bases bilaterally ABDOMEN: The upper abdomen is clear. There is no subphrenic gas. BONES AND SOFT TISSUES: There is chronic appearing post traumatic change to the right humerus OTHER: None. IMPRESSION: 1. COPD. 2. SMALL BILATERAL EFFUSIONS WITH BIBASILAR ATELECTASIS
[2017-03-29 12:02] LABS: Digoxin 0.6 ng/ml (0.8-2.0)
--- NOTE | 2017-03-29 12:34 | ED ---
Mercedez Saez SooYoung, scribed for Chavo Quiñonez MD on 03/29/17 at 1040 . Complex/Multi-Sys Presentation - HPI Summary HPI Summary: An 86 y/o F presents to ED with c/o anascara ongoing for past month. Associated sx: SOB, rapid weight gain of 25 lbs this month, diarrhea yesterday, chest "heaviness" yesterday since resolved. Denies fever, chills, CP, cough. Pert PMHx : Breast CA, MT, stents, CHF, HTN, unspecified fluid retention. Denies PMHx of liver problems. Pt lives at [facility]. Smoker. No ETOH. Seen at [facility] yesterday, referred by Dr. Hensley's office to ED to remove fluid build-up. - History Of Current Complaint Chief Complaint: EDGeneral Time Seen by Provider: 03/29/17 10:31 Hx Obtained From: Patient, Family/Testboard Operator - son and friend present Onset/Duration: Gradual Onset, Lasting Weeks, Still Present Timing: Constant Severity Currently: Mild Severity Initially: Mild Associated Signs And Symptoms: Positive: SOB, Edema, Diarrhea, Other - pos: chest heaviness, rapid weight gain; neg: chills. Negative: Cough, Chest Pain, Fever - Allergies/Home Medications Allergies/Adverse Reactions: Allergies Allergy/AdvReac Type Severity Reaction Status Date / Time Acetaminophen [From Tylenol] Allergy Anaphylatic Verified 11/27/13 00:33 Shock Aspirin [From Excedrin] Allergy Anaphylatic Verified 11/27/13 00:34 Shock Iodine Allergy Anaphylatic Verified 11/27/13 00:34 Shock PMH/Surg Hx/FS Hx/Imm Hx Previously Healthy: No Cardiovascular History: Reports: Hx Coronary Artery Disease, Hx Hypertension, Hx Myocardial Infarction Denies: Hx Angina, Hx Hypercholesterolemia, Hx Valvular Heart Disease Respiratory History: Denies: Hx Asthma, Hx Chronic Obstructive Pulmonary Disease (COPD) Musculoskeletal History: Reports: Hx Arthritis, Hx Osteoporosis Sensory History: Reports: Hx Contacts or Glasses, Hx Vision Problem - corneal transplant, Other Sensory Impairments - corneal transplant Denies: Hx Hearing Aid Opthamlomology History: Reports: Hx Contacts or Glasses, Hx Vision Problem - corneal transplant, Other Sensory Impairments - corneal transplant Psychiatric History: Reports: Hx Depression - Cancer History Cancer Type, Location and Year: - 1990 Hx Chemotherapy: No Hx Radiation Therapy: No Hx Palliative Cancer Treatment: No - Surgical History Surgery Procedure, Year, and Place: 1990- left [id number]- corneal [id number]- hysterectomy, CORONARY STENTS Hx Anesthesia Reactions: No - Immunization History Date of Tetanus Vaccine: UTD Date of Influenza Vaccine: NO Infectious Disease History: Yes Infectious Disease History: Denies: Traveled Outside the [place] in Last 30 Days - Family History Known Family History: Positive: Cardiac Disease - Social History Occupation: Retired Lives: Assisted Living Alcohol Use: Rare Hx Substance Use: No Substance Use Type: Reports: None Hx Tobacco Use: Yes Smoking Status (MU): Former Smoker Type: Cigarettes Amount Used/How Often: 3-7 packs per week Length of Time of Smoking/Using Tobacco: 55 yrs Have You Smoked in the Last Year: Yes Review of Systems Positive: Other - pos: rapid weight gain. Negative: Fever, Chills Positive: Other - pos: chest "heaviness". Negative: Chest Pain Positive: Shortness Of Breath. Negative: Cough Positive: Diarrhea Positive: Edema All Other Systems Reviewed And Are Negative: Yes Physical Exam Triage Information Reviewed: Yes Vital Signs On Initial Exam: Initial Vitals Temp Pulse Resp BP Pulse Ox 97.9 F 131 20 147/77 99 03/29/17 10:15 03/29/17 10:15 03/29/17 10:15 03/29/17 10:15 03/29/17 10:15 Vital Signs Reviewed: Yes Appearance: Positive: Well-Appearing, No Pain Distress Skin: Positive: Skin Color Reflects Adequate Perfusion Head/Face: Positive: Normal Head/Face Inspection Eyes: Positive: EOMI ENT: Positive: Normal ENT inspection Neck: Positive: Supple Respiratory/Lung Sounds: Positive: Decreased Breath Sounds - base, Rales - base Cardiovascular: Positive: IRR Abdomen Description: Positive: Nontender, Other: - ascites Musculoskeletal: Positive: Edema Left, Edema Right Neurological: Positive: Sensory/Motor Intact, Alert, Oriented to Person Place, Time, CN Intact II-III Psychiatric: Positive: Normal Diagnostics - Vital Signs Vital Signs Temp Pulse Resp BP Pulse Ox 03/29/17 10:15 97.9 F 131 20 147/77 99 - Laboratory Result Diagrams: 03/29/17 11:14 03/29/17 11:14 Lab Statement: Any lab studies that have been ordered have been reviewed, and results considered in the medical decision making process. - Radiology CXR Xray Interpretation: Positive (See Comments) - IMPRESSION: 1. COPD. 2. SMALL BILATERAL EFFUSIONS WITH BIBASILAR ATELECTASIS. ED physician has reviewed this radiology report and agrees. Radiology Interpretation Completed By: Radiologist - EKG 1021 EKG Rhythm: Atrial Fibrillation - with RVR ST Segment: Normal - no STEMI Complex Multi-Symp Course/Dx Course Of Treatment: An 86 y/o F presents to ED with c/o anascara ongoing for past month. Associated sx: SOB, rapid weight gain of 25 lbs this month, diarrhea yesterday, chest heaviness yesterday since resolved. Denies fever, chills, CP, cough. Pert PMHx: Breast CA, MT, stents, CHF, HTN, unspecified fluid retention. Denies PMHx of liver problems. Seen at [facility] yesterday, referred by Dr. Hensley to remove fluid. EKG shows Afib with RVR, no STEMI. CXR shows "1. COPD. 2. SMALL BILATERAL EFFUSIONS WITH BIBASILAR ATELECTASIS" - Diagnoses Provider Diagnoses: Anasarca, Pleural effusion, bilateral, Atrial fibrillation with RVR, Chest pain - Physician Notifications Discussed Care Of Patient With: Malik Carreon Time Discussed With Above Provider: 12:31 Discharge - Discharge Plan Condition: Good Disposition: ADMITTED TO [facility] Referrals: Antoni Almanzar MD [Primary Care Provider] - The documentation as recorded by the Mercedez burton SooYoung accurately reflects the service I personally performed and the decisions made by me, Chavo Quiñonez MD.
[2017-03-29] MEDS ORDERED: Furosemide IV* 10 MG/ML 10 ML VIAL (100 MG) IV ONE (12:47)
[2017-03-29] MEDS ORDERED: Ondansetron INJ* 2 MG/ML VIAL IV PRN (13:09)
[2017-03-29] MEDS ORDERED: traMADol TAB* 50 MG PO PRN (13:10)
[2017-03-29] MEDS ORDERED: Loperamide CAP* 2 MG PO PRN (13:10)
[2017-03-29] MEDS ORDERED: Digoxin TAB* 0.25 MG PO ONE (13:12)
[2017-03-29] MEDS: Rivaroxaban TAB(*) 15 MG PO SCH (13:46)
[2017-03-29] MEDS: Metoprolol Tartrate TAB* 100 MG TAB PO SCH ×2 (13:46→21:28)
[2017-03-29 14:00] LABS: Urine Bacteria 1+ (Absent); Urine Bilirubin Negative (Negative); Urine Glucose Negative (Negative); Urine Nitrite Positive (Negative)
--- NOTE | 2017-03-29 15:14 | HP ---
CC: Dr. Almanzar* ADMISSION HISTORY AND PHYSICAL: DATE OF ADMISSION: 03/28/17 PRIMARY CARE PROVIDER: Dr. Almanzar ADMITTING PROVIDER: SAGRARIO Clark SUPERVISING PHYSICIAN: Yandel Blake MD* (dictated by SAGRARIO Clark). CHIEF COMPLAINT: Shortness of breath and weight gain. HISTORY OF PRESENT ILLNESS: This is an 86-year-old female with known chronic systolic heart failure, chronic kidney disease, coronary artery disease, history of breast cancer, hypertension, hyperlipidemia, COPD, and AFib, who presented to the emergency department with complaints of chest pain and significant weight gain over the last several weeks. The patient was seen by her primary care provider yesterday who recommended that she proceed to the emergency department for further evaluation. The patient states that she has been having intermittent palpitations over the last 2 to 3 weeks in addition to shortness of breath that has been getting worse over the last couple of days. She denies any recent changes to her medication. No recent illness. She describes no fever. She does have an occasional cough, but no abdominal pain, nausea, vomiting. She does have chronic diarrhea for which she takes Imodium. She does describe orthopnea over the last couple of weeks and also states that she has not taken any of her home medications this morning, but she states that she is otherwise compliant with her medications on a daily basis. The patient states that she denies any significant changes in her diet and reports that she has no added salt, but does not necessarily follow a low-sodium diet. PAST MEDICAL HISTORY: 1. Chronic systolic heart failure with last EF measured at 40% to 45%. 2. Stage 3 chronic kidney disease. 3. Coronary artery disease. 4. History of breast cancer. 5. Hypertension. 6. Hyperlipidemia. 7. COPD. 8. Atrial fibrillation. PAST SURGICAL HISTORY: 1. Cataract extraction x2. 2. Corneal transplant. 3. Cardiac catheterization with 2 prior stents. 4. Left mastectomy. 5. Renal artery stenting. 6. Appendectomy. 7. Hysterectomy. 8. Left knee arthroscopy. HOME MEDICATIONS: 1. Digoxin 0.125 mg p.o. daily. 2. Hydrochlorothiazide 25 mg p.o. daily. 3. Loperamide 2 mg p.o. b.i.d. as needed. 4. Melatonin 3 mg p.o. at bedtime. 5. Metoprolol tartrate 100 mg p.o. twice daily. 6. Nitroglycerin 0.4 mg sublingual q. 5 minutes as needed for chest pain. 7. Xarelto 15 mg p.o. daily. 8. Simvastatin 20 mg p.o. every other day. 9. Tramadol 50 to 100 mg p.o. q. 6 hours as needed for pain. SOCIAL HISTORY: The patient is a former smoker, quit several months ago. Denies any regular alcohol consumption. REVIEW OF SYSTEMS: As noted above in HPI. All other systems reviewed and otherwise negative. PHYSICAL EXAMINATION GENERAL: This is a pleasant elderly female accompanied by multiple family members who is in no acute distress. VITAL SIGNS: Initial vitals, temperature 97.9 degrees Fahrenheit, pulse 131 beats per minute, respiratory rate 20 per minute, oxygen saturation 99% on room air, and blood pressure 147/77 mmHg. HEENT: Head is normocephalic, atraumatic. Mucous membranes are pink and moist. RESPIRATORY: Lungs are clear to auscultation but diminished at lung bases. CARDIOVASCULAR: Heart has an irregular rhythm and slightly tachycardic, but no murmurs, rubs, or gallops appreciated. ABDOMEN: Soft, slightly distended but nontender to palpation. EXTREMITIES: The patient has bilateral lower extremity edema estimated at about 1+ and nonpitting. PSYCH: The patient is alert and appropriately oriented. Affect is appropriate to the situation. LABORATORY EVALUATION: CBC shows a white blood cell count of 10,500, hemoglobin of 8.2 g/dL, and platelet count of 414,000. INR of 1.14. Comprehensive metabolic panel shows a sodium of 138 mmol/L, potassium 4.7, bicarb of 16, BUN 40, creatinine 2.01, and random glucose of 112. Transaminases and total bilirubin within normal limits. Troponin is negative at 0.03. BNP 1321. Digoxin low at 0.6. IMAGIN. Chest x-ray shows a right pleural effusion and changes consistent with COPD. 2. EKG shows atrial fibrillation with a rapid rate, around 130 beats per minute. ASSESSMENT AND PLAN: This is an 86-year-old female with chronic systolic heart failure, chronic kidney disease, coronary artery disease, history of breast cancer, hypertension, hyperlipidemia, chronic obstructive pulmonary disease, and chronic atrial fibrillation, who presents with complaints of shortness of breath and significant weight gain. She is being admitted for congestive heart failure exacerbation. 1. Acute on chronic systolic heart failure - the patient is obviously fluid overloaded. She does have last known EF of 40% to 45% measured in August 2016. She was also noted to be tachycardic in the emergency department. She does complain of increased palpitations over the last couple of weeks. It may be that her heart failure exacerbation is mediated by poor rate control on her atrial fibrillation. Otherwise, there does not seem to be any significant inciting factor that would explain her significant weight gain over the last several weeks. We will plan to start IV Lasix at this time, monitor her renal function closely with diuresis. The patient declines use of a Glass catheter to help with the large volume diuresis. We will monitor I's and O's closely and work on controlling her heart rate. We will also plan to repeat her echocardiogram given the significant amount of weight gain that she has experienced to ensure her EF has not fallen further. 2. Rapid atrial fibrillation - the patient has not taken her morning metoprolol and her serum digoxin levels are slightly low. We gave her a total of 250 mcg of digoxin today as well as ordered her morning metoprolol for now to see if this helps bring down her heart rate. She is chronically anticoagulated with Xarelto, which will be continued. 3. Microcytic anemia - this is chronic for her. 4. Chronic kidney disease. Her kidney function looks slightly worse than baseline. GFR has fallen to 23. Baseline is closer to the mid 30s or so. This will be monitored while she is being diuresed. 5. History of coronary artery disease - she has no complaints of chest pain or other evidence of acute coronary syndrome contributing to her acute presentation. 6. Hypertension. The patient is near normotensive in the emergency department. In her home, antihypertensive medications will be continued. 7. Hyperlipidemia. 8. Chronic obstructive pulmonary disease without acute exacerbation. 9. Code status. The patient is DNR/DNI with a signed MOLST. 10. DVT prophylaxis. The patient is chronically anticoagulated with Xarelto. 11. Healthcare proxy is listed as her son, Kolby Gerardo. DISPOSITION: The patient is being admitted to inpatient status with chief diagnosis of CHF exacerbation with an estimated length of stay to be greater than 2 midnights. SAGRARIO CLARK [id number]/[facility] #: [id number] ERIK
--- NOTE | 2017-03-29 15:17 | PN ---
Hospitalist Progress Note customer technical services manager brought it to my attention that she had an outpatient echo completed last week. Results reviewed and placed on chart. EF 30-35%, which is a decline since last done 08/201617. Grade III diastolic dysfunction noted, mod MR
[2017-03-29] MEDS: traMADol TAB* 50 MG PO SCH (21:27)
[2017-03-29] MEDS: CMC:Melatonin (NF) 3 MG TAB PO SCH (21:28)
[2017-03-30 05:33] LABS: Hematocrit 25 % (35-47); Hemoglobin 7.7 g/dl (12.0-16.0); Mean Corpuscular HGB Conc 30 g/dl (31-36); Mean Corpuscular Hemoglobin 23 pg (27-31); Mean Corpuscular Volume 75 fL (80-97); Mean Platelet Volume 8 um3 (7.4-10.4); Red Blood Count 3.37 10^6/ul (4.0-5.4); Red Cell Distribution Width 19 % (10.5-15); White Blood Count 10.2 10^3/ul (3.5-10.8)
[2017-03-30 05:47] LABS: BUN/Creatinine Ratio 22.2 (8-20); Calcium 8.2 mg/dL (8.6-10.3); EGFR African American 31.6 (>60); EGFR Non-African American 24.6 (>60); Potassium 4.4 mmol/L (3.5-5.0)
[2017-03-30] MEDS: traMADol TAB* 50 MG PO SCH (10:25)
[2017-03-30] MEDS: Metoprolol Tartrate TAB* 100 MG TAB PO SCH ×2 (10:26→22:27)
[2017-03-30] MEDS: Digoxin TAB* 0.125 MG PO SCH (10:27)
[2017-03-30] MEDS: Rivaroxaban TAB(*) 15 MG PO SCH (10:28)
[2017-03-30] MEDS: Furosemide IV* 10 MG/ML VIAL (40 MG) IV SCH (10:29)
--- NOTE | 2017-03-30 12:16 | PN ---
Subjective Date of Service: 03/30/17 Interval History: Patient seen and examined at bedside. Denies fever, chills, chest discomfort, N/ V/D. Pt states that her breathing is improving and the discomfort due to swelling in her legs is improving. Tele: Afib, rate 60-70's. Family History: Unchanged from Admission Social History: Unchanged from Admission Past Medical History: Unchanged from Admission Objective Active Medications: Atorvastatin Calcium (Lipitor*) 10 mg PO EVERY OTHER DAY GERONIMO Digoxin (Lanoxin Tab*) 0.125 mg PO DAILY GERONIMO Furosemide (Lasix Iv*) 40 mg IV DAILY GERONIMO Loperamide HCl (Imodium Cap*) 2 mg PO BID PRN Reason: DIARRHEA Melatonin (Melatonin (Nf)) 3 mg PO BEDTIME [facility] Reason: Protocol Metoprolol Tartrate (Lopressor Tab*) 100 mg PO BID GERONIMO Ondansetron HCl (Zofran Inj*) 4 mg IV Q4H PRN Reason: NAUSEA/VOMITING Rivaroxaban (Xarelto(*)) 15 mg PO DAILY GERONIMO Tramadol HCl (Ultram*) 50 mg PO BID [facility] Vital Signs 03/29/17 03/29/17 03/29/17 13:00 13:01 13:40 Temperature 97.5 F Pulse Rate 119 110 134 Respiratory 23 27 20 Rate Blood Pressure 145/71 152/79 (mmHg) O2 Sat by Pulse 94 90 100 Oximetry 03/29/17 03/29/17 03/29/17 13:45 15:28 20:02 Temperature 97.6 F 98.4 F Pulse Rate 128 54 101 Respiratory 16 16 Rate Blood Pressure 134/52 135/45 (mmHg) O2 Sat by Pulse 100 100 Oximetry 03/30/17 03/30/17 03/30/17 08:23 10:25 10:27 Temperature 98.3 F Pulse Rate 78 90 Respiratory 24 24 Rate Blood Pressure 133/43 (mmHg) O2 Sat by Pulse 97 Oximetry Appearance: NAD, laying in bed Ears/Nose/Mouth/Throat: Mucous Membranes Moist Respiratory: Symmetrical Chest Expansion and Respiratory Effort, Clear to Auscultation Cardiovascular: NL Sounds; No Murmurs; No JVD, RRR Abdominal: NL Sounds; No Tenderness; No Distention Extremities: - - Trace to 1+ bilateral LE Neurological: Alert and Oriented x 3, NL Muscle Strength and Tone Lines/Tubes/Other Access: Clean, Dry and Intact Peripheral IV - site benign Nutrition: Taking PO's Result Diagrams: 03/30/17 04:55 03/30/17 04:56 Assess/Plan/Problems-Billing Assessment: Ms. Gerardo is a 86 yo female with PMH significant for - Patient Problems (1) Systolic heart failure Code(s): I50.20 - UNSPECIFIED SYSTOLIC (CONGESTIVE) HEART FAILURE SNOMED Code( s): 771127963 Comment: - Acute on chronic - Last EF 40-45% - Echo pending - Strict I+O's and daily weights - Continue IV lasix (2) Atrial fibrillation with RVR Code(s): I48.91 - UNSPECIFIED ATRIAL FIBRILLATION SNOMED Code(s): 263937247861437 Comment: - Continue Xarelto, digoxin, and metoprolol - Avoid CCB with depressed EF (3) Anemia Code(s): D64.9 - ANEMIA, UNSPECIFIED SNOMED Code(s): 094075343 Comment: - Chronic microcytic - Appears to be at baseline (4) CKD (chronic kidney disease) stage 3, GFR 30-59 ml/min Code(s): N18.3 - CHRONIC KIDNEY DISEASE, STAGE 3 (MODERATE) SNOMED Code(s): 136846985 Comment: - stage III at baseline - Baseline GFR appears to be around mid 30's - Continue to monitor while diuresing (5) CAD (coronary artery disease) Code(s): I25.10 - ATHSCL HEART DISEASE OF [place] CORONARY ARTERY W/O ANG PCTRS SNOMED Code(s): 72425419 Comment: - Severe, managed medically - No evidence of ACS - Continue metoprolol and statin (6) HLD (hyperlipidemia) Code(s): E78.5 - HYPERLIPIDEMIA, UNSPECIFIED SNOMED Code(s): 49621129 Comment: - Continue statin (7) COPD (chronic obstructive pulmonary disease) Code(s): J44.9 - CHRONIC OBSTRUCTIVE PULMONARY DISEASE, UNSPECIFIED SNOMED Code(s): 12031666 Comment: - No acute exacerbation (8) HTN (hypertension) Code(s): I10 - ESSENTIAL (PRIMARY) HYPERTENSION SNOMED Code(s): 02491249 Comment: - Normotensive - Continue metoprolol (9) DVT prophylaxis Code(s): GXT3151 - SNOMED Code(s): 215361482 Comment: - Anticoagulated with Xarelto (10) DNR (do not resuscitate) Status and Disposition: Inpatient. Discharge to home when medically stable. Suspect in 1-2 days.
[2017-03-30] MEDS: Nystatin TOP POWDER* 15 GM BTL TOPICAL SCH ×2 (16:14→22:22)
[2017-03-30] MEDS: traMADol TAB* 50 MG PO PRN ×2 (17:03→23:45)
[2017-03-30] MEDS: CMC:Melatonin (NF) 3 MG TAB PO SCH (22:22)
[2017-03-31 05:37] LABS: Hematocrit 26 % (35-47); Hemoglobin 7.9 g/dl (12.0-16.0); Mean Corpuscular HGB Conc 31 g/dl (31-36); Mean Corpuscular Hemoglobin 23 pg (27-31); Mean Corpuscular Volume 75 fL (80-97); Mean Platelet Volume 8 um3 (7.4-10.4); Red Blood Count 3.39 10^6/ul (4.0-5.4); Red Cell Distribution Width 18 % (10.5-15)
[2017-03-31 05:57] LABS: BUN/Creatinine Ratio 21.8 (8-20); Calcium 8.2 mg/dL (8.6-10.3); EGFR African American 32.8 (>60); EGFR Non-African American 25.5 (>60)
[2017-03-31] MEDS ORDERED: Atorvastatin* 10 MG TAB PO SCH (09:00)
[2017-03-31] MEDS: Digoxin TAB* 0.125 MG PO SCH (10:07)
[2017-03-31] MEDS: Metoprolol Tartrate TAB* 100 MG TAB PO SCH ×2 (10:07→21:54)
[2017-03-31] MEDS: Rivaroxaban TAB(*) 15 MG PO SCH (10:07)
[2017-03-31] MEDS: Nystatin TOP POWDER* 15 GM BTL TOPICAL SCH ×3 (10:10→21:54)
[2017-03-31] MEDS: Furosemide IV* 10 MG/ML VIAL (40 MG) IV SCH (10:10)
--- NOTE | 2017-03-31 15:59 | PN ---
Subjective Date of Service: 03/31/17 Interval History: Pt is feeling better. She still gets SOB from time to time. She has not done much walking at all. She denies any CP. No abdominal pain. She just had a BM. She states she does not have anyone to help her tonight if she goes home this afternoon. Family History: Unchanged from Admission Social History: Unchanged from Admission Past Medical History: Unchanged from Admission Objective Active Medications: Atorvastatin Calcium (Lipitor*) 10 mg PO EVERY OTHER DAY COUNT INCLUDES THE [facility] Last Admin: 03/31/17 10:06 Dose: 10 mg Cephalexin HCl (Keflex Cap*) 500 mg PO BID COUNT INCLUDES THE [facility] Digoxin (Lanoxin Tab*) 0.125 mg PO DAILY COUNT INCLUDES THE [facility] Last Admin: 03/31/17 10:07 Dose: 0.125 mg Furosemide (Lasix Iv*) 40 mg IV DAILY COUNT INCLUDES THE [facility] Last Admin: 03/31/17 10:10 Dose: 40 mg Loperamide HCl (Imodium Cap*) 2 mg PO BID PRN PRN Reason: DIARRHEA Melatonin (Melatonin (Nf)) 3 mg PO BEDTIME COUNT INCLUDES THE [facility] PRN Reason: Protocol Last Admin: 03/30/17 22:22 Dose: 3 mg Metoprolol Tartrate (Lopressor Tab*) 100 mg PO BID COUNT INCLUDES THE [facility] Last Admin: 03/31/17 10:07 Dose: 100 mg Nystatin (Nystatin Top Powder*) 1 applic TOPICAL TID COUNT INCLUDES THE [facility] Last Admin: 03/31/17 14:02 Dose: 1 applic Ondansetron HCl (Zofran Inj*) 4 mg IV Q4H PRN PRN Reason: NAUSEA/VOMITING Rivaroxaban (Xarelto(*)) 15 mg PO DAILY COUNT INCLUDES THE [facility] Last Admin: 03/31/17 10:07 Dose: 15 mg Tramadol HCl (Ultram*) 50 mg PO Q6H PRN PRN Reason: PAIN Last Admin: 03/30/17 23:45 Dose: 50 mg Vital Signs 03/30/17 03/30/17 03/30/17 17:00 17:03 18:00 Temperature 98.4 F Pulse Rate 79 86 Respiratory 16 20 18 Rate Blood Pressure 144/42 136/74 (mmHg) O2 Sat by Pulse 99 95 Oximetry 03/30/17 03/30/17 03/30/17 19:03 19:33 20:00 Temperature 98.4 F Pulse Rate 67 Respiratory 20 24 20 Rate Blood Pressure 136/45 (mmHg) O2 Sat by Pulse 97 Oximetry 03/30/17 03/30/17 03/31/17 23:41 23:45 01:45 Temperature 98.3 F Pulse Rate 45 Respiratory 16 18 18 Rate Blood Pressure 149/55 (mmHg) O2 Sat by Pulse 97 Oximetry 03/31/17 03/31/17 03/31/17 03:40 07:22 07:52 Temperature 97.8 F 98.2 F Pulse Rate 45 119 Respiratory 16 20 20 Rate Blood Pressure 124/57 144/52 (mmHg) O2 Sat by Pulse 97 98 Oximetry 03/31/17 03/31/17 10:07 11:20 Temperature 97.4 F Pulse Rate 75 68 Respiratory 20 Rate Blood Pressure 110/47 (mmHg) O2 Sat by Pulse 99 Oximetry Oxygen Devices in Use Now: None Appearance: Elderly female sitting up in bed, NAD Eyes: No Scleral Icterus Ears/Nose/Mouth/Throat: Mucous Membranes Moist Respiratory: Symmetrical Chest Expansion and Respiratory Effort, Clear to Auscultation - few LLL crackles Cardiovascular: NL Sounds; No Murmurs; No JVD, - - irregularly irregular, controlled rate, trace LE edema (mostly in ankles and feet) Abdominal: NL Sounds; No Tenderness; No Distention Extremities: No Clubbing, Cyanosis Skin: No Rash or Ulcers, No Nodules or Sclerosis Neurological: Alert and Oriented x 3 Result Diagrams: 03/31/17 05:20 03/31/17 05:11 Microbiology and Other Data: Microbiology 03/29/17 13:07 Urine Culture - Final Urine Escherichia Coli Assess/Plan/Problems-Billing Ms. Gerardo is a 86 yo female with PMH significant for stage III-IV CKD, chronic systolic CHF, CAD, HTN, HLD, COPD and afib who presented to the ER with c/o progressive SOB and was admitted for rapid afib and acute on chronic decompensated systolic CHF. - Patient Problems (1) Systolic heart failure Current Visit: Yes Status: Acute Code(s): I50.20 - UNSPECIFIED SYSTOLIC ( CONGESTIVE) HEART FAILURE SNOMED Code(s): 259411477 Comment: The patient has acute on chronic CHF. She is diuresing well. Will give IV lasix again tomorrow AM then will likely stop HCTZ and change to lasix orally. Echo was not previously ordered-will try to get echo tomorrow. If unable to be done she can go home and get this as an outpatient with Dr. Hensley. (2) Atrial fibrillation with RVR Current Visit: Yes Status: Acute Code(s): I48.91 - UNSPECIFIED ATRIAL FIBRILLATION SNOMED Code(s): 179122527522951 Comment: The patient's HR is controlled. Continue metoprolol and digoxin. Continue xarelto. Will need to follow the patient's H/H especially while on the xarelto. (3) Anemia Current Visit: Yes Status: Chronic Code(s): D64.9 - ANEMIA, UNSPECIFIED SNOMED Code(s): 882014078 Comment: Anemia now is worse than it was in 11/2016. Likely anemia of chronic kidney disease but will check stool occult blood (she is on xarelto), iron and B12 studies. Follow up CBC tomorrow. (4) UTI (urinary tract infection) Current Visit: Yes Status: Acute Comment: The patient's urine culture grew E coli. Will start keflex 500mg BID. (5) CAD (coronary artery disease) Current Visit: Yes Status: Chronic Code(s): I25.10 - ATHSCL HEART DISEASE OF [place] CORONARY ARTERY W/O ANG PCTRS SNOMED Code(s): 76308274 Comment: Continue metoprolol and statin. No complaints at this time. (6) CKD (chronic kidney disease) stage 3, GFR 30-59 ml/min Current Visit: Yes Status: Chronic Code(s): N18.3 - CHRONIC KIDNEY DISEASE, STAGE 3 (MODERATE) SNOMED Code(s): 473432486 Comment: Creatinine is improving despite IV diuresis. Continue to monitor. (7) COPD (chronic obstructive pulmonary disease) Current Visit: Yes Status: Chronic Code(s): J44.9 - CHRONIC OBSTRUCTIVE PULMONARY DISEASE, UNSPECIFIED SNOMED Code(s): 91589601 Comment: No signs of acute exacerbation. She is not on any inhalers at home. (8) HTN (hypertension) Current Visit: Yes Status: Chronic Code(s): I10 - ESSENTIAL (PRIMARY) HYPERTENSION SNOMED Code(s): 60309997 Comment: BP is under good control. Continue metoprolol at current dose. (9) HLD (hyperlipidemia) Current Visit: Yes Status: Chronic Code(s): E78.5 - HYPERLIPIDEMIA, UNSPECIFIED SNOMED Code(s): 22508124 Comment: Continue statin (10) DVT prophylaxis Current Visit: Yes Status: Acute Code(s): IOP2300 - SNOMED Code(s): 649842183 Comment: Jacqueline (11) DNR (do not resuscitate) Current Visit: Yes Status: Acute Status and Disposition: d/c home tomorrow
[2017-03-31] MEDS: Cephalexin CAP* 500 MG PO SCH ×2 (17:18→21:54)
[2017-03-31] MEDS: CMC:Melatonin (NF) 3 MG TAB PO SCH (21:54)
[2017-03-31] MEDS: traMADol TAB* 50 MG PO PRN (21:59)
[2017-04-01 05:04] LABS: Hematocrit 24 % (35-47); Hemoglobin 7.6 g/dl (12.0-16.0); Mean Corpuscular HGB Conc 32 g/dl (31-36); Mean Corpuscular Hemoglobin 24 pg (27-31); Mean Corpuscular Volume 75 fL (80-97); Mean Platelet Volume 8 um3 (7.4-10.4); Red Blood Count 3.18 10^6/ul (4.0-5.4); Red Cell Distribution Width 19 % (10.5-15); White Blood Count 8.9 10^3/ul (3.5-10.8)
[2017-04-01 05:15] LABS: BUN/Creatinine Ratio 23.5 (8-20); EGFR African American 33.8 (>60); EGFR Non-African American 26.3 (>60); Potassium 4.4 mmol/L (3.5-5.0)
--- NOTE | 2017-04-01 08:53 | DCNOTE ---
Patient seen this morning. Reports feeling well, no SOB, leg swelling improved greatly. Anxious to go home. On exam, trace rales in bases, otherwise clear, no LE edema, IRIR, normal rate, GLADIS Plan to discharge today on oral Lasix. Will stop HCTZ, start Aldosterone due to reduced EF. Will need close follow-up with PCP and Cardiology.
[2017-04-01] MEDS: Cephalexin CAP* 500 MG PO SCH (09:06)
[2017-04-01] MEDS: Digoxin TAB* 0.125 MG PO SCH (09:07)
[2017-04-01] MEDS: Metoprolol Tartrate TAB* 100 MG TAB PO SCH (09:08)
[2017-04-01] MEDS: Furosemide IV* 10 MG/ML VIAL (40 MG) IV SCH (09:08)
[2017-04-01] MEDS: Rivaroxaban TAB(*) 15 MG PO SCH (09:11)
[2017-04-01] MEDS: Nystatin TOP POWDER* 15 GM BTL TOPICAL SCH (09:11)
[2017-04-01 11:55] LABS: Ferritin 13.8 ng/mL (11-307)
[2017-04-01 12:27] VITALS: BP 133/45
--- NOTE | 2017-04-02 07:05 | DS ---
CC: Dr. Almanzar * DISCHARGE SUMMARY: DATE OF ADMISSION: 03/29/17 DATE OF DISCHARGE: 04/01/17 PRIMARY CARE PHYSICIAN: Dr. Almanzar. PRINCIPAL DISCHARGE DIAGNOSIS: [id number] systolic congestive heart failure exacerbation, stage II. SECONDARY DIAGNOSES: 1. Chronic kidney disease, stage 3. 2. Coronary artery disease. 3. Hypertension. 4. Hyperlipidemia. 5. Chronic obstructive pulmonary disease. 6. Atrial fibrillation. STUDIES DONE DURING HOSPITALIZATION: 1. Chest x-ray. Impression: COPD, small bilateral effusions with bibasilar atelectasis. DISCHARGE MEDICATION REGIMEN: 1. Lasix 40 mg by mouth daily. 2. Spironolactone 25 mg by mouth daily. 3. Nitroglycerin 0.4 mg sublingual every 5 minutes as needed for chest pain. 4. Imodium 2 mg by mouth 3 times daily as needed for diarrhea. 5. Xarelto 15 mg by mouth daily. 6. Simvastatin 20 mg by mouth every other day. 7. Digoxin 0.125 mg by mouth daily. 8. Metoprolol tartrate 100 mg by mouth 3 times daily. 9. Melatonin 3 mg by mouth at bedtime. 10. Tramadol 50 to 100 mg every 6 hours as needed for pain. HISTORY OF PRESENT ILLNESS AND HOSPITAL SUMMARY: Please see the full history and physical by SAGRARIO Arguelles for full details. Briefly, Ms. Gerardo is an 86-year-old female with a past medical history as above, who presented to the hospital with increasing dyspnea on exertion and orthopnea. The patient was seen in primary health care nurse's office and it was recommended she come to the hospital for further evaluation. On arrival to the hospital, the patient was noted to be in atrial fibrillation with a rapid ventricular rate. She was given some additional digoxin with improvement in her rate. She was also started on IV diuretics. The patient just recently had an echocardiogram done about a week or two prior to admission , which showed depressed EF, slightly worse than previously along with moderate to severe mitral regurgitation, tricuspid regurgitation. Over the course of the hospitalization, the patient's heart rate became controlled and she had good urine output and weight loss over the course of the hospitalization. She will be discharged on oral Lasix and we will need to follow up closely with her PCP and with Cardiology. Of note, the patient did have positive urinalysis; however, she had no symptoms consistent with UTI, so antibiotics were stopped after a few doses. The patient was also noted to be anemic with studies consistent with iron deficiency. She will be discharged on p.o. iron in addition to the medications above. The patient will follow up with her PCP as well as with her primary health care nurse as an outpatient. TIME SPENT: Total time spent on this discharge, 45 minutes. This is a summary of the hospitalization. Please see the full medical record for further details. [id number]/[facility] #: [id number] [facility]ITAL[facility]
== END 2017-04-01 13:00 | disposition home or self-care (01) | DRG 291 ==
LOC: ED 10:08 → MEDTELE 12:41
PROVIDERS: ADMIT Internal Medicine; ATTEND Hospitalist
DX: I13.0 Hypertensive heart and chronic kidney disease with heart failure and stage 1 through stage 4 chronic kidney disease, or unspecified chronic kidney disease (principal); I50.23 Acute on chronic systolic (congestive) heart failure; J44.9 Chronic obstructive pulmonary disease, unspecified; I48.91 Unspecified atrial fibrillation; I08.1 Rheumatic disorders of both mitral and tricuspid valves; J98.11 Atelectasis; N18.3 Chronic kidney disease, stage 3 (moderate); I25.10 Atherosclerotic heart disease of native coronary artery without angina pectoris; E78.5 Hyperlipidemia, unspecified; D50.9 Iron deficiency anemia, unspecified; K52.9 Noninfective gastroenteritis and colitis, unspecified; Z66 Do not resuscitate; Z85.3 Personal history of malignant neoplasm of breast; Z95.5 Presence of coronary angioplasty implant and graft; Z79.01 Long term (current) use of anticoagulants; Z79.899 Other long term (current) drug therapy; Z87.891 Personal history of nicotine dependence
CPT/HCPCS: 36415; 71020; 80048; 80053; 80162; 81003; 81015; 82272; 82607; 82728; 83540; 83550; 83605; 83880; 84484; 85025; 85027; 85610; 87040; 87077; 87086; 87186; 93005; A9270-GY; J1940

== ENCOUNTER 2017-06-27 19:32 | Inpatient (IN) | payer MEDICARE ==
[2017-06-27] MEDS ORDERED: Ondansetron INJ* 2 MG/ML VIAL IV ONE (20:02)
[2017-06-27] MEDS ORDERED: Pantoprazole IV* 40 MG IV ONE (20:02)
[2017-06-27] MEDS ORDERED: Morphine INJ* 4 MG/ML 1 ML CARPUJECT IV ONE (20:02)
[2017-06-27] MEDS ORDERED: NS 0.9% 1000 ML* 1,000 ML IV ONE ×2 (20:02→20:48)
[2017-06-27 20:34] LABS: INR 1.09 (0.77-1.02)
[2017-06-27 20:39] LABS: ABS Basophils 0.1 10^3/ul (0-0.2); ABS Eosinophils 0.1 10^3/ul (0-0.6); ABS Lymphocytes 1.6 10^3/ul (1.0-4.8); ABS Monocytes 0.5 10^3/ul (0-0.8); ABS Neutrophils 6.9 10^3/ul (1.5-7.7); ABS Nucleated RBC 0.11 10^3/ul; EGFR Non-African American 16.4 (>60); Eosinophil % 0.9 % (0-6); Hematocrit 30 % (35-47); Hemoglobin 8.6 g/dl (12.0-16.0); Lymphocyte % 16.9 % (25-47); Mean Corpuscular HGB Conc 29 g/dl (31-36); Mean Corpuscular Hemoglobin 20 pg (27-31); Mean Corpuscular Volume 71 fL (80-97); Mean Platelet Volume 8 um3 (7.4-10.4); Nucleated Red Blood Cells % 1.2; Platelet Count 286 10^3/ul (150-450); Red Blood Count 4.19 10^6/ul (4.0-5.4); Red Cell Distribution Width 20 % (10.5-15); White Blood Count 9.2 10^3/ul (3.5-10.8)
[2017-06-27] MEDS ORDERED: Levofloxacin 500 MG IVPREMIX(* 500 MG/100 ML BAG IVPB ONE (20:48)
[2017-06-27] MEDS ORDERED: metroNIDAZOLE IV 500 MG/100ML* 500 MG/100 ML BAG IVPB ONE (20:49)
--- NOTE | 2017-06-27 22:09 | RAD ---
INDICATION: Abdominal pain. COMPARISON: There are no prior studies available for comparison. TECHNIQUE: A CT scan of the abdomen and pelvis was performed without intravenous or oral contrast. Contiguous axial sections were obtained from the lung bases through the symphysis pubis. Images were reconstructed in the coronal and sagittal planes. FINDINGS: There are small bilateral pleural effusions and mild dependent bilateral lower lobe infiltrates suggestive of atelectasis. The liver and spleen are normal in size. There are multiple splenic calcifications suggestive of old granulomatous disease. No calcified gallstones are seen. The pancreas appears to be within normal limits on this noncontrast study. The adrenal glands appear within normal limits. The kidneys are small in size with bilateral cortical thinning. There is a staghorn calculus in the lower pole of the right kidney measuring 1.6 x 0.8 cm in size. No hydronephrosis is seen. No bladder calculi are noted. The aorta is normal in caliber with severe calcific plaque present. No significant enlarged retroperitoneal lymph nodes are seen. The stomach, small and large bowel appear nondistended. The appendix is not visualized. No inflammatory changes are seen in the right lower quadrant. There is moderate sigmoid diverticulosis without evidence for diverticulitis. The patient is status post hysterectomy. No free intraperitoneal air or fluid is seen. There is a mild chronic appearing compression fracture involving the superior endplate of the L4 vertebral body. No other focal osseous abnormalities are seen. IMPRESSION: 1. SMALL BILATERAL PLEURAL EFFUSIONS AND BILATERAL LOWER LOBE INFILTRATES. 2. ATROPHIC KIDNEYS AND NONOBSTRUCTING STAGHORN CALCULUS IN THE LOWER POLE OF THE RIGHT KIDNEY. 3. MILD CHRONIC COMPRESSION FRACTURE OF THE L4 VERTEBRAL BODY.
--- NOTE | 2017-06-27 22:45 | ED ---
Hector Saez Tecjoon, scribjaz for Masoud Funes MD on 06/27/17 at 2003 . Abdominal Pain/Female - HPI Summary HPI Summary: This patient is a 86 year old BIBA to [facility] with a chief complaint of left abdominal pain for approximately 2 days. Patient states pain progressively got worse tonight after eating spaghetti. The pain is rated 10/10 in severity. Patient states the pain radiates to the back as well. Symptoms aggravated by palpation. Symptoms alleviated by nothing. Patient additionally reports vomiting , diarrhea, back pain. Patient denies fever, blood in stool. - History of Current Complaint Chief Complaint: EDAbdPain Stated Complaint: ABD PAIN Time Seen by Provider: 06/27/17 19:47 Hx Obtained From: Patient Onset/Duration: Gradual Onset, Lasting Days, Still Present Timing: Constant Pain Intensity: 10 Pain Scale Used: 0-10 Numeric Location: Other - left abdomen Radiates: Yes Radiates to: Back Aggravating Factor(s): Other: - palpation Alleviating Factor(s): Nothing Associated Signs and Symptoms: Positive: Negative - fever, blood in stool., Other: - vomiting, diarrhea, back pain Allergies/Adverse Reactions: Allergies Allergy/AdvReac Type Severity Reaction Status Date / Time Acetaminophen [From Tylenol] Allergy Anaphylatic Verified 11/27/13 00:33 Shock Aspirin [From Excedrin] Allergy Anaphylatic Verified 11/27/13 00:34 Shock Iodine Allergy Anaphylatic Verified 06/27/17 20:42 Shock PMH/Surg Hx/FS Hx/Imm Hx Previously Healthy: No Cardiovascular History: Reports: Hx Congestive Heart Failure, Hx Coronary Artery Disease, Hx Hypertension, Hx Myocardial Infarction Denies: Hx Angina, Hx Hypercholesterolemia, Hx Valvular Heart Disease Respiratory History: Denies: Hx Asthma, Hx Chronic Obstructive Pulmonary Disease (COPD) Musculoskeletal History: Reports: Hx Arthritis, Hx Osteoporosis Sensory History: Reports: Hx Contacts or Glasses, Hx Vision Problem - corneal transplant, Other Sensory Impairments - corneal transplant Denies: Hx Hearing Aid Opthamlomology History: Reports: Hx Contacts or Glasses, Hx Vision Problem - corneal transplant, Other Sensory Impairments - corneal transplant Psychiatric History: Reports: Hx Depression - Cancer History Cancer Type, Location and Year: breast- 1990 Hx Chemotherapy: No Hx Radiation Therapy: No Hx Palliative Cancer Treatment: No - Surgical History Surgery Procedure, Year, and Place: 1990- left [id number]- corneal [id number]- hysterectomy, CORONARY STENTS Hx Anesthesia Reactions: No - Immunization History Date of Tetanus Vaccine: UTD Date of Influenza Vaccine: NO Infectious Disease History: No Infectious Disease History: Denies: Traveled Outside the [place] in Last 30 Days - Family History Known Family History: Positive: Cardiac Disease - Social History Alcohol Use: None Hx Substance Use: No Substance Use Type: Reports: None Hx Tobacco Use: Yes Smoking Status (MU): Former Smoker Type: Cigarettes Amount Used/How Often: 3-7 packs per week Length of Time of Smoking/Using Tobacco: 55 yrs Have You Smoked in the Last Year: Yes Review of Systems Negative: Fever Gastrointestinal: Negative - blood in stool Positive: Abdominal Pain, Vomiting, Diarrhea Positive: Other - back pain All Other Systems Reviewed And Are Negative: Yes Physical Exam - Summary Physical Exam Summary: VITAL SIGNS: Reviewed. GENERAL: Patient is an elderly, lethargic-looking female who is lying comfortable in the stretcher. Patient is not in any acute respiratory distress. HEAD AND FACE: No signs of trauma. No ecchymosis, hematomas or skull depressions. No sinus tenderness. EYES: PERRLA, EOMI x 2, No injected conjunctiva, no nystagmus. EARS: Hearing grossly intact. Ear canals and tympanic membranes are within normal limits. MOUTH: Oropharynx within normal limits. NECK: Supple, trachea is midline, no adenopathy, no JVD, no carotid bruit, no c- spine tenderness, neck with full ROM. CHEST: Symmetric, no tenderness at palpation LUNGS: Clear to auscultation bilaterally. No wheezing or crackles. CVS: Heart has irregular tachycardia. ABDOMEN: Tenderness of left side of abdomen. Hyperactive bowel sounds. EXTREMITIES: FROM in all major joints, no edema, no cyanosis or clubbing. NEURO: Alert and oriented x 3. No acute neurological deficits. Speech is normal and follows commands. SKIN: Dry and warm Triage Information Reviewed: Yes Vital Signs On Initial Exam: Initial Vitals Temp Pulse Resp BP Pulse Ox 97.8 F 110 20 152/88 98 06/27/17 19:41 06/27/17 19:41 06/27/17 19:41 06/27/17 19:41 06/27/17 19:41 Vital Signs Reviewed: Yes - [place] Coma Scale Coma Scale Total: 15 Diagnostics - Vital Signs Vital Signs Temp Pulse Resp BP Pulse Ox 06/27/17 19:41 97.8 F 110 20 152/88 98 - Laboratory Lab Results: Lab Results 06/27/17 06/27/17 06/27/17 Range/Units 20:10 20:16 20:16 WBC (3.5-10.8) 10^3/ul RBC (4.0-5.4) 10^6/ul Hgb (12.0-16.0) g/dl Hct (35-47) % MCV (80-97) fL MCH (27-31) pg MCHC (31-36) g/dl RDW (10.5-15) % Plt Count (150-450) 10^3/ul MPV (7.4-10.4) um3 Neut % (Auto) (38-83) % Lymph % (Auto) (25-47) % Sibley % (Auto) (1-9) % Eos % (Auto) (0-6) % Baso % (Auto) (0-2) % Absolute Neuts (auto) (1.5-7.7) 10^3/ul Absolute Lymphs (auto) (1.0-4.8) 10^3/ul Absolute Monos (auto) (0-0.8) 10^3/ul Absolute Eos (auto) (0-0.6) 10^3/ul Absolute Basos (auto) (0-0.2) 10^3/ul Absolute Nucleated RBC 10^3/ul Nucleated RBC % INR (Anticoag Therapy) 1.09 H (0.77-1.02) APTT 29.2 (26.0-36.3) seconds ABG pH 7.25 L (7.35-7.45) ABG pCO2 25 L (35-45) mmHg ABG pO2 85 (80-100) mmHg ABG HCO3 13.4 L (19-31) mmol/L ABG O2 Saturation 98.2 H (95-98) % ABG Base Excess -14.8 L (-2.0-2.0) Sodium (133-145) mmol/L Potassium (3.5-5.0) mmol/L Chloride (101-111) mmol/L Carbon Dioxide (22-32) mmol/L Anion Gap (2-11) mmol/L BUN (6-24) mg/dL Creatinine (0.51-0.95) mg/dL Est GFR ( Amer) (>60) Est GFR (Non-Af Amer) (>60) BUN/Creatinine Ratio (8-20) Glucose (70-100) mg/dL Lactic Acid (0.5-2.0) mmol/L Calcium (8.6-10.3) mg/dL Total Bilirubin (0.2-1.0) mg/dL AST (13-39) U/L ALT (7-52) U/L Alkaline Phosphatase (34-104) U/L C-Reactive Protein (< 5.00) mg/L Total Protein (6.4-8.9) g/dL Albumin (3.2-5.2) g/dL Globulin (2-4) g/dL Albumin/Globulin Ratio (1-3) Amylase (29-103) U/L Lipase (11.0-82.0) U/L Blood Type O Positive Antibody Screen Negative 06/27/17 06/27/17 06/27/17 Range/Units 20:16 20:16 20:16 WBC 9.2 (3.5-10.8) 10^3/ul RBC 4.19 (4.0-5.4) 10^6/ul Hgb 8.6 L (12.0-16.0) g/dl Hct 30 L (35-47) % MCV 71 L (80-97) fL MCH 20 L (27-31) pg MCHC 29 L (31-36) g/dl RDW 20 H (10.5-15) % Plt Count 286 (150-450) 10^3/ul MPV 8 (7.4-10.4) um3 Neut % (Auto) 75.5 (38-83) % Lymph % (Auto) 16.9 L (25-47) % Sibley % (Auto) 5.9 (1-9) % Eos % (Auto) 0.9 (0-6) % Baso % (Auto) 0.8 (0-2) % Absolute Neuts (auto) 6.9 (1.5-7.7) 10^3/ul Absolute Lymphs (auto) 1.6 (1.0-4.8) 10^3/ul Absolute Monos (auto) 0.5 (0-0.8) 10^3/ul Absolute Eos (auto) 0.1 (0-0.6) 10^3/ul Absolute Basos (auto) 0.1 (0-0.2) 10^3/ul Absolute Nucleated RBC 0.11 10^3/ul Nucleated RBC % 1.2 INR (Anticoag Therapy) (0.77-1.02) APTT (26.0-36.3) seconds ABG pH (7.35-7.45) ABG pCO2 (35-45) mmHg ABG pO2 (80-100) mmHg ABG HCO3 (19-31) mmol/L ABG O2 Saturation (95-98) % ABG Base Excess (-2.0-2.0) Sodium 136 (133-145) mmol/L Potassium 5.5 H (3.5-5.0) mmol/L Chloride 113 H (101-111) mmol/L Carbon Dioxide 12 L* (22-32) mmol/L Anion Gap 11 (2-11) mmol/L BUN 59 H (6-24) mg/dL Creatinine 2.75 H (0.51-0.95) mg/dL Est GFR ( Amer) 21.1 (>60) Est GFR (Non-Af Amer) 16.4 (>60) BUN/Creatinine Ratio 21.5 H (8-20) Glucose 219 H (70-100) mg/dL Lactic Acid 3.0 H* (0.5-2.0) mmol/L Calcium 8.8 (8.6-10.3) mg/dL Total Bilirubin 1.10 H (0.2-1.0) mg/dL AST 11 L (13-39) U/L ALT 10 (7-52) U/L Alkaline Phosphatase 83 (34-104) U/L C-Reactive Protein 4.97 (< 5.00) mg/L Total Protein 6.9 (6.4-8.9) g/dL Albumin 3.6 (3.2-5.2) g/dL Globulin 3.3 (2-4) g/dL Albumin/Globulin Ratio 1.1 (1-3) Amylase 41 (29-103) U/L Lipase 66 (11.0-82.0) U/L Blood Type Antibody Screen Result Diagrams: 06/27/17 20:16 06/27/17 20:16 Lab Statement: Any lab studies that have been ordered have been reviewed, and results considered in the medical decision making process. - CT CT Abd/Pel CT Interpretation: Positive (See Comments) - IMPRESSION: 1. SMALL BILATERAL PLEURAL EFFUSIONS AND BILATERAL LOWER LOBE INFILTRATES. 2. ATROPHIC KIDNEYS AND NONOBSTRUCTING STAGHORN CALCULUS IN THE LOWER POLE OF THE RIGHT KIDNEY. 3. MILD CHRONIC COMPRESSION FRACTURE OF THE L4 VERTEBRAL BODY. ED physician has reviewed this radiology report. CT Interpretation Completed By: Radiologist Abdominal Pain Fem Course/Dx - Course Course Of Treatment: This patient is a 86 year old BIBA to [facility] with a chief complaint of left abdominal pain for approximately 2 days. The pain is rated 10/ 10 in severity. Patient states the pain radiates to the back as well. CT Abd/Pel , CXR taken. Bloodwork Obtained. Urinalysis Obtained. In the ED course the patient was given Protonix, Zofran, Morphine, Flagyl, Levaquin. Patient is diagnosed with 1. Acute gastroenteritis, 2. Renal insufficiency 3. Metabolic acidosis. We discussed patient care with Dr. Carrero (hospitallist) at 2224, who agrees to admit the patient to the hospital. The patient is agreeable with this plan. - Diagnoses Provider Diagnoses: Acute gastroenteritis, Renal insufficiency, Metabolic acidosis - Provider Notifications Discussed Care Of Patient With: Kolby Carrero Time Discussed With Above Provider: 22:24 - We discussed patient care with Dr. Carrero (hospitallist) at 2224, who agrees to admit the patient to the hospital. Discharge - Discharge Plan Condition: Fair Disposition: ADMITTED TO [facility] Referrals: Antoni Almanzar MD [Primary Care Provider] - The documentation as recorded by the Hector burton Tecjoon accurately reflects the service I personally performed and the decisions made by me, Masoud Funes MD.
[2017-06-27] MEDS ORDERED: Morphine INJ* 2 MG/ML 1 ML CARPUJECT IV PRN (23:24)
[2017-06-27] MEDS ORDERED: Acetaminophen TAB* 325 MG PO PRN (23:24)
[2017-06-27] MEDS ORDERED: NS 0.9% 1000 ML* 1,000 ML IV SCH (23:30)
[2017-06-27] MEDS ORDERED: Morphine INJ* 2 MG/ML 1 ML SYRINGE (TWO MG - NEW SYRINGE VERSION) ONE (23:32)
[2017-06-27] MEDS ORDERED: Ondansetron INJ* 2 MG/ML VIAL ONE (23:32)
[2017-06-27] MEDS: Ondansetron INJ* 2 MG/ML VIAL IV PRN (23:34)
[2017-06-27 23:51] LABS: Urine Appearance Turbid; Urine Blood 2+ (Negative); Urine Color Amber; Urine Ketones Negative (Negative); Urine Protein 2+(100 mg/dL) (Negative); Urine Specific Gravity 1.012 (1.010-1.030); Urine Urobilinogen Negative (Negative)
[2017-06-27] MEDS ORDERED: Nitroglycerin TAB 0.4 MG* 0.4 MG TAB SL PRN (23:51)
[2017-06-28] MEDS ORDERED: NS 0.9% 1000 ML* 1,000 ML IV SCH (00:02)
--- NOTE | 2017-06-28 00:05 | ADMNOTE ---
Subjective Date of Service: 06/28/17 Interval History: Addendum to H&P: Glass placed without evidence of urinary retention. Lactic acidosis improving status post 2 L bolus of NS. Decrease 3rd liter to 125cc/hr Urinalysis c/w infection which may also me etiology of suprapubic tenderness. Continue CTX in AM as described. Review of Systems - Measurements Intake and Output: Intake and Output Last 24 Hours 06/25/17 06/26/17 06/27/17 06/28/17 11:59 11:59 11:59 11:59 Intake Total 2191.6 Output Total 200 Balance 1990.6 Weight 63.503 kg Intake: IV Fluids 1.6 Output: Residual 200 Glass 16 Fr 200 Other: Date of Last Bowel 06/27/17 Movement Objective Active Medications: Digoxin (Lanoxin Tab*) 0.125 mg PO DAILY [facility] Ceftriaxone Sodium 1 gm/ (Sodium Chloride) 50 mls @ 200 mls/hr IVPB Q24H [facility] Sodium Chloride (Ns 0.9% 1000 Ml*) 1,000 mls @ 125 mls/hr IV PER RATE [facility] Stop: 06/28/17 08:01 Metoprolol Tartrate (Lopressor Tab*) 100 mg PO BID [facility] Morphine Sulfate (Morphine Inj (Syringe)*) 2 mg IV Q4H PRN PRN Reason: PAIN Last Admin: 06/27/17 23:33 Dose: 2 mg Nitroglycerin (Nitroglycerin Tab 0.4 Mg*) 0.4 mg SL Q5M PRN PRN Reason: PAIN - CHEST Ondansetron HCl (Zofran Inj*) 4 mg IV Q4H PRN PRN Reason: NAUSEA/VOMITING Last Admin: 06/27/17 23:34 Dose: 4 mg Rivaroxaban (Xarelto(*)) 15 mg PO DAILY [facility] Spironolactone (Aldactone Tab*) 25 mg PO DAILY [facility] Tramadol HCl (Ultram*) 50 mg PO Q6HR PRN PRN Reason: PAIN Vital Signs - 8 hr 06/27/17 06/27/17 06/27/17 19:41 19:42 19:43 Temperature 97.8 F Pulse Rate 110 112 Respiratory 20 27 Rate Blood Pressure 152/88 149/81 (mmHg) O2 Sat by Pulse 98 98 Oximetry 06/27/17 06/27/17 06/27/17 19:59 20:18 20:30 Temperature Pulse Rate 113 115 117 Respiratory 19 30 17 Rate Blood Pressure 158/79 146/81 (mmHg) O2 Sat by Pulse 99 98 98 Oximetry 06/27/17 06/27/17 06/27/17 20:37 21:00 22:00 Temperature Pulse Rate 114 113 Respiratory 20 22 21 Rate Blood Pressure 151/73 141/76 (mmHg) O2 Sat by Pulse 97 99 Oximetry 06/27/17 06/27/17 06/27/17 22:30 23:00 23:33 Temperature Pulse Rate 111 111 Respiratory 21 22 18 Rate Blood Pressure 136/80 112/67 (mmHg) O2 Sat by Pulse 98 94 Oximetry Oxygen Devices in Use Now: None Result Diagrams: 06/27/17 20:16 06/27/17 20:16 Additional Lab and Data: Lab Results 06/27/17 06/27/17 06/27/17 Range/Units 20:10 20:16 20:16 WBC (3.5-10.8) 10^3/ul RBC (4.0-5.4) 10^6/ul Hgb (12.0-16.0) g/dl Hct (35-47) % MCV (80-97) fL MCH (27-31) pg MCHC (31-36) g/dl RDW (10.5-15) % Plt Count (150-450) 10^3/ul MPV (7.4-10.4) um3 Neut % (Auto) (38-83) % Lymph % (Auto) (25-47) % Walworth % (Auto) (1-9) % Eos % (Auto) (0-6) % Baso % (Auto) (0-2) % Absolute Neuts (auto) (1.5-7.7) 10^3/ul Absolute Lymphs (auto) (1.0-4.8) 10^3/ul Absolute Monos (auto) (0-0.8) 10^3/ul Absolute Eos (auto) (0-0.6) 10^3/ul Absolute Basos (auto) (0-0.2) 10^3/ul Absolute Nucleated RBC 10^3/ul Nucleated RBC % INR (Anticoag Therapy) 1.09 H (0.77-1.02) APTT 29.2 (26.0-36.3) seconds ABG pH 7.25 L (7.35-7.45) ABG pCO2 25 L (35-45) mmHg ABG pO2 85 (80-100) mmHg ABG HCO3 13.4 L (19-31) mmol/L ABG O2 Saturation 98.2 H (95-98) % ABG Base Excess -14.8 L (-2.0-2.0) Sodium (133-145) mmol/L Potassium (3.5-5.0) mmol/L Chloride (101-111) mmol/L Carbon Dioxide (22-32) mmol/L Anion Gap (2-11) mmol/L BUN (6-24) mg/dL Creatinine (0.51-0.95) mg/dL Est GFR ( Amer) (>60) Est GFR (Non-Af Amer) (>60) BUN/Creatinine Ratio (8-20) Glucose (70-100) mg/dL Lactic Acid (0.5-2.0) mmol/L Calcium (8.6-10.3) mg/dL Total Bilirubin (0.2-1.0) mg/dL AST (13-39) U/L ALT (7-52) U/L Alkaline Phosphatase (34-104) U/L C-Reactive Protein (< 5.00) mg/L Total Protein (6.4-8.9) g/dL Albumin (3.2-5.2) g/dL Globulin (2-4) g/dL Albumin/Globulin Ratio (1-3) Amylase (29-103) U/L Lipase (11.0-82.0) U/L Blood Type O Positive Antibody Screen Negative 06/27/17 06/27/17 06/27/17 Range/Units 20:16 20:16 20:16 WBC 9.2 (3.5-10.8) 10^3/ul RBC 4.19 (4.0-5.4) 10^6/ul Hgb 8.6 L (12.0-16.0) g/dl Hct 30 L (35-47) % MCV 71 L (80-97) fL MCH 20 L (27-31) pg MCHC 29 L (31-36) g/dl RDW 20 H (10.5-15) % Plt Count 286 (150-450) 10^3/ul MPV 8 (7.4-10.4) um3 Neut % (Auto) 75.5 (38-83) % Lymph % (Auto) 16.9 L (25-47) % Walworth % (Auto) 5.9 (1-9) % Eos % (Auto) 0.9 (0-6) % Baso % (Auto) 0.8 (0-2) % Absolute Neuts (auto) 6.9 (1.5-7.7) 10^3/ul Absolute Lymphs (auto) 1.6 (1.0-4.8) 10^3/ul Absolute Monos (auto) 0.5 (0-0.8) 10^3/ul Absolute Eos (auto) 0.1 (0-0.6) 10^3/ul Absolute Basos (auto) 0.1 (0-0.2) 10^3/ul Absolute Nucleated RBC 0.11 10^3/ul Nucleated RBC % 1.2 INR (Anticoag Therapy) (0.77-1.02) APTT (26.0-36.3) seconds ABG pH (7.35-7.45) ABG pCO2 (35-45) mmHg ABG pO2 (80-100) mmHg ABG HCO3 (19-31) mmol/L ABG O2 Saturation (95-98) % ABG Base Excess (-2.0-2.0) Sodium 136 (133-145) mmol/L Potassium 5.5 H (3.5-5.0) mmol/L Chloride 113 H (101-111) mmol/L Carbon Dioxide 12 L* (22-32) mmol/L Anion Gap 11 (2-11) mmol/L BUN 59 H (6-24) mg/dL Creatinine 2.75 H (0.51-0.95) mg/dL Est GFR ( Amer) 21.1 (>60) Est GFR (Non-Af Amer) 16.4 (>60) BUN/Creatinine Ratio 21.5 H (8-20) Glucose 219 H (70-100) mg/dL Lactic Acid 3.0 H* (0.5-2.0) mmol/L Calcium 8.8 (8.6-10.3) mg/dL Total Bilirubin 1.10 H (0.2-1.0) mg/dL AST 11 L (13-39) U/L ALT 10 (7-52) U/L Alkaline Phosphatase 83 (34-104) U/L C-Reactive Protein 4.97 (< 5.00) mg/L Total Protein 6.9 (6.4-8.9) g/dL Albumin 3.6 (3.2-5.2) g/dL Globulin 3.3 (2-4) g/dL Albumin/Globulin Ratio 1.1 (1-3) Amylase 41 (29-103) U/L Lipase 66 (11.0-82.0) U/L Blood Type Antibody Screen Microbiology and Other Data: Microbiology 06/27/17 21:49 Stool Gross Appearance - Final Stool C. difficile DNA Amplification - Final 027 Presumptive NEGATIVE Toxigenic C.diff NEGATIVE Stool Lactoferrin - Final 06/27/17 21:49 Stool Occult Blood (VERONICA) - Final Stool Assess/Plan/Problems-Billing Assessment:
[2017-06-28] MEDS: Morphine INJ* 2 MG/ML 1 ML SYRINGE (TWO MG - NEW SYRINGE VERSION) IV PRN ×7 (01:51→23:24)
--- NOTE | 2017-06-28 02:03 | ED ---
Hector Saez Tecjoon, scribed for Masoud Funes MD on 06/28/17 at 0150 . Progress - Progress Note Progress Note: An EKG, taken 2011, reveals Sinus Tachycardia (115 BPM), nonspecific T abnormalities in the lateral leads. Course/Dx - Course Course Of Treatment: This patient is a 86 year old BIBA to [facility] with a chief complaint of left abdominal pain for approximately 2 days. The pain is rated 10/ 10 in severity. Patient states the pain radiates to the back as well. CT Abd/Pel , CXR taken. Bloodwork Obtained. Urinalysis Obtained. In the ED course the patient was given Protonix, Zofran, Morphine, Flagyl, Levaquin. Patient is diagnosed with 1. Acute gastroenteritis, 2. Renal insufficiency 3. Metabolic acidosis. We discussed patient care with Dr. Carrero (hospitallist) at 2224, who agrees to admit the patient to the hospital. The patient is agreeable with this plan. - Diagnoses Provider Diagnoses: Acute gastroenteritis, Renal insufficiency, Metabolic acidosis - Provider Notifications Time Discussed With Above Provider: 22:24 - We discussed patient care with Dr. Carrero (hospitallist) at 2224, who agrees to admit the patient to the hospital. The documentation as recorded by the Hector burton Tecjoon accurately reflects the service I personally performed and the decisions made by Shantel ocampo Abdul, MD.
[2017-06-28 02:23] LABS: EGFR Non-African American 17.6 (>60)
--- NOTE | 2017-06-28 02:45 | HP ---
CC: Dr. Almanzar; Dr. Hensley * ADMISSION HISTORY AND PHYSICAL: DATE OF ADMISSION: PRIMARY CARE PROVIDER: Dr. Almanzar. MASTER GLAZIER: Dr. Hensley. HEALTHCARE PROXY: Son, Kolby. CODE STATUS: DNR, MOLST completed. SOURCE OF INFORMATION: History obtained from interview of patient, reliability is fair, and review of past medical records including Dr. Hensley's last clinic note from 06/21/17, reliability excellent. CHIEF COMPLAINT: Abdominal pain. HISTORY OF PRESENT ILLNESS: This is an 86-year-old female with a complex cardiomyopathy as well as lung disease, CAD, and chronic atrial fibrillation, who notes over the last 3 weeks, she has had intermittent lower abdominal pain that is described as burning, radiating to her left lower abdomen. The pain typically lasts for several minutes always followed by emesis, which relieves the pain. It has been occurring approximately 1 time a day to once every other day. She has had no associated fever, chills, night sweats, or weight changes, and notes that her p.o. intake has remained good. She has noted decreased sleep with these symptoms. She has also noted intermittent diarrhea that occurs 3 to 4 times a day that lasts for several days and then resolves. Today, the abdominal pain returned in a similar fashion at the periumbilical radiating to her left lower quadrant and had frequent emesis described as "constant" along with "a little diarrhea." She has had no cough but noted increasing shortness of breath over several weeks corroborated by Dr. Hensley's notes. She denies any melena or bright red blood, urinary dysuria, frequency, or sick contacts, but there is no increasing fatigue. She now becomes short of breath walking down a flight of stairs from her home. In the emergency room, she received 2 L of IV fluids, metronidazole, and Levaquin as well as analgesia for her abdominal pain and the hospitalist service was consulted for admission. When seen by this author, the patient's abdominal pain was improved, although she felt generally "uncomfortable." She has not had any additional diarrhea since presenting to the hospital nor nausea and vomiting. PAST MEDICAL HISTORY: Includes systolic heart failure, last EF is 30% per Dr. Hensley's note of echocardiogram in March 2017. 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 MEDICATIONS: Reviewed from Dr. Hensley's most recent progress note, include: 1. Spironolactone 25 mg daily. 2. Nitroglycerin 0.4 mg sublingual every 5 minutes as needed up to 3 doses. 3. Xarelto 15 mg daily. 4. Metoprolol tartrate 100 mg twice daily. 5. Digoxin 125 mcg daily. 6. Tramadol 50 mg 1 to 2 tabs every 6 hours as needed. 7. Lasix 40 mg daily. ALLERGIES: To ACETAMINOPHEN, ASPIRIN, and IODINE. FAMILY HISTORY: Reviewed and noncontributory to this admission with CAD, hypertension, hyperlipidemia, diabetes. SOCIAL HISTORY: Current tobacco use. [facility] [address] [facility]. No alcohol. Retired. REVIEW OF SYSTEMS: As per HPI including shortness of breath, abdominal pain, emesis, intermittent diarrhea, fatigue, absence of headache, fevers, chills, night sweats, cough, skin changes, medication changes, all other systems reviewed and negative. PHYSICAL EXAMINATION GENERAL: Lying 30 degrees in bed, appears uncomfortable but in no distress, interactive. VITAL SIGNS: In the emergency room were blood pressure 112/67, heart rate between 109 and 116, respiratory rate is 18, 94% on room air, T-max 97.8. HEENT: Oropharynx is clear. No ulcerations. Dry mucous membranes. NECK: She has elevated JVD to the angle of her jaw. She has no cervical or supraclavicular lymphadenopathy. No goiter. LUNGS: Have rales in bilateral bases. No rhonchi or wheezing. HEART: She has an irregularly irregular heart rate, tachycardic. Difficult to appreciate murmurs. ABDOMEN: Soft, nondistended. Tenderness predominantly in the suprapubic area with minimal tenderness in the left lower quadrant. No rebound or guarding. EXTREMITIES: Have faint coolness in her feet and distal toes but with preserved capillary refill. She has trace lower extremity edema. NEUROLOGIC: She is alert and oriented x3. Her cranial nerves are intact. She has no apparent anxiety, agitation, or depression. DIAGNOSTIC STUDIES/LAB DATA: Labs reviewed: Sodium 136, potassium 5.5, chloride 113, bicarbonate 12, BUN 59, creatinine 2.75, anion gap is 11 non- elevated, glucose 219, lactic acid is 3.0. Total bilirubin 1.1, AST at 11, ALT 10, alk phos 83. CRP is 4.97. Lipase 66, amylase 41. I have added on a troponin and a TSH which are currently pending. White blood cell count is 9.2 with a hemoglobin of 8.6, slightly higher than her baseline; MCV is 71; platelets 286. Arterial blood gas: pH 7.25 with PCO2 of 25, PO2 of 85. Pertinent imaging reviewed: CT abdomen and pelvis: Small bilateral pleural effusions and bilateral lower lobe infiltrates noted on the CT abdomen and pelvis. Atrophic kidneys and nonobstructing staghorn calculus in the lower pole of the right kidney. Mild chronic compression fracture of L4 vertebral body. EKG: Atrial fibrillation with ventricular rate of 115, normal limit axis, no Q waves, ST depressions in V4 through V6 most prominent in V6, have been present in the past most recently in March; however, more pronounced depression in lateral leads at this time. ASSESSMENT AND PLAN: This is an 86-year-old female presenting to the emergency room with abdominal pain, found with metabolic acidosis as well as acute on chronic renal failure associated with lactic acidosis and tachycardia. 1. Sepsis: While patient meets sepsis criteria with an elevated lactic acidosis, tachycardia, as well as end-organ failure indicated by her acute kidney injury, I see no evidence that she is actively infected. Her CRP is within normal range. She is afebrile and her white count is normal. However, CT of abdomen and pelvis did incidentally note lower lobe consolidations concerning for pneumonia. She has received Levaquin and Flagyl in the emergency room presumably for a gastrointestinal source prior to CT imaging returning. I will start ceftriaxone tomorrow for presumed infectious etiology. I have added on a procalcitonin as well as an ESR to the ER labs. We will also place Glass catheter, monitor urine output as well as to collect urine as a potential source. 2. Metabolic acidosis: Unclear etiology at this time, however, 3 weeks of diarrhea resulting in kidney failure, suspicious for etiology of non-anion gap metabolic acidosis. The patient notes no decreased intake, unclear the reliability of this information. Systemic infection also a possibility as indicated above and we will treat. At this point, she has received 2 L normal saline. We will repeat lactic acid now, give 1 more liter carefully as the patient has known systolic hear failure, currently compensated. Cardiac etiology for decreased forward flow not ruled out at this time but troponin is pending especially in the setting of lateral ST depressions. We will repeat arterial blood gas at 1 a.m. tomorrow to trend for improvement. 3. EKG changes - most notably lateral ST depressions. Troponin is currently pending. I suspect will be elevated to some point in the setting of demand ischemia with known systolic heart failure as well as [id number] mitral regurgitation. We will continue to trend based on its result. The patient cannot receive ASPIRIN secondary to allergy. 4. Acute on chronic kidney failure: Suspect dehydration with chronic diarrhea at this point, although aforementioned etiologies above including sepsis cannot fully be ruled out at this time. We will treat with fluids as indicated above and continue to follow. 5. Pneumonia: Found incidentally on CT abdomen and pelvis. Chest x-ray performed not as prominent on this imaging. We will treat with ceftriaxone as indicated above, although unclear of this etiology. Additionally, procalcitonin has been added on. 6. Abdominal pain: Unclear etiology at this point. Pain noted to be more suprapubic in nature. We will place Glass catheter, potentially some element of urinary retention and check urinalysis. Fecal lactoferrin negative decreasing likelihood of infectious colitis. 7. History of systolic heart failure: Holding Lasix while fluid resuscitating. 8. Atrial fibrillation: Continue Xarelto, metoprolol, and digoxin. 9. DVT prophylaxis: Xarelto 15 mg. [id number]/[facility] [place]: [id number] [facility]
[2017-06-28] MEDS: Sodium Bicarbonate (ANTACID)* 650 MG TAB PO SCH ×6 (03:31→23:23)
[2017-06-28] MEDS: Ondansetron INJ* 2 MG/ML VIAL IV PRN ×4 (03:40→23:23)
[2017-06-28] MEDS ORDERED: Sodium Bicarbonate 8.4%* 50 ML SYRINGE IV ONE (03:55)
[2017-06-28] MEDS ORDERED: Sodium Bicarbonate 8.4%* 50 ML SYRINGE ONE (03:56)
[2017-06-28] MEDS ORDERED: Heparin VIAL(*) 5000 UNITS/ML VIAL (FIVE THOUSAND) SUBCUT SCH (06:00)
[2017-06-28] MEDS ORDERED: Sodium Polystyrene ORAL.SOL* 15 GM/60 ML BTL PO ONE (06:18)
[2017-06-28 07:07] LABS: ABS Basophils 0 10^3/ul (0-0.2); ABS Eosinophils 0 10^3/ul (0-0.6); ABS Lymphocytes 1.2 10^3/ul (1.0-4.8); ABS Monocytes 0.5 10^3/ul (0-0.8); ABS Neutrophils 14.5 10^3/ul (1.5-7.7); ABS Nucleated RBC 0.09 10^3/ul; Eosinophil % 0 % (0-6); Hematocrit 28 % (35-47); Lymphocyte % 7.6 % (25-47); Mean Corpuscular HGB Conc 29 g/dl (31-36); Mean Corpuscular Hemoglobin 20 pg (27-31); Mean Platelet Volume 9 um3 (7.4-10.4); Nucleated Red Blood Cells % 0.6; Platelet Count 232 10^3/ul (150-450); Red Blood Count 3.91 10^6/ul (4.0-5.4); Red Cell Distribution Width 20 % (10.5-15); White Blood Count 16.3 10^3/ul (3.5-10.8)
[2017-06-28 07:21] LABS: Mean Corpuscular Volume 71 fL (80-97)
[2017-06-28 07:22] LABS: EGFR Non-African American 18.3 (>60)
--- NOTE | 2017-06-28 07:55 | RAD ---
INDICATION: Weakness and abdominal pain COMPARISON: Most recent comparison chest x-rays dated March 29, 2017 TECHNIQUE: Single AP portable view of the chest was obtained. FINDINGS: Image quality is compromised due to the relative inferiority of a portable chest x-ray. There is mild cardiomegaly. There is fullness over the bilateral maura. The pulmonary vasculature appears minimally engorged and somewhat indistinct. The lungs are grossly clear. There is no evidence of a large pleural effusion. Similar to the prior chest x-ray there appears to be an impacted fracture at the right humeral surgical neck. IMPRESSION: Chest x-ray findings are compatible with cardiogenic vascular congestion.
[2017-06-28] MEDS ORDERED: Spironolactone TAB* 25 MG PO SCH (09:00)
[2017-06-28] MEDS: Rivaroxaban TAB(*) 15 MG PO SCH (09:17)
[2017-06-28] MEDS: Metoprolol Tartrate TAB* 100 MG TAB PO SCH ×2 (09:17→20:39)
[2017-06-28] MEDS: cefTRIAXone(*) 1 GM in D5W 50 ML BAG* 50 ML IVPB SCH (09:17)
[2017-06-28] MEDS: traMADol TAB* 50 MG PO PRN ×2 (09:18→20:23)
--- NOTE | 2017-06-28 10:07 | PN ---
Subjective Date of Service: 06/28/17 Interval History: Pt with continued nausea, burning abdominal pain (suprapubic and sometimes LLQ) . Orthopnea at home. Saw Dr. Hensley last , Pt states that he told her that there was not much else that he could offer given her continued decline (also has breast cancer recurrent to right breast for which he would not clear for surgery. Palliative care consult placed. Pt states baseline weight stable in range 138-142. Leukocytosis jumped to 16 from 9.2. BNP 2240. Objective Active Medications: Digoxin (Lanoxin Tab*) 0.125 mg PO DAILY@1700 [facility] Ceftriaxone Sodium 1 gm/ (Dextrose) 50 mls @ 200 mls/hr IVPB Q24H [facility] Last Admin: 06/28/17 09:17 Dose: 200 mls/hr Metoprolol Tartrate (Lopressor Tab*) 100 mg PO BID [facility] Last Admin: 06/28/17 09:17 Dose: 100 mg Morphine Sulfate (Morphine Inj (Syringe)*) 2 mg IV Q2H PRN PRN Reason: PAIN Nitroglycerin (Nitroglycerin Tab 0.4 Mg*) 0.4 mg SL Q5M PRN PRN Reason: PAIN - CHEST Ondansetron HCl (Zofran Inj*) 8 mg IV Q4H PRN PRN Reason: NAUSEA/VOMITING Last Admin: 06/28/17 08:28 Dose: 8 mg Pantoprazole Sodium (Protonix Iv*) 40 mg IV Q24H [facility] Rivaroxaban (Xarelto(*)) 15 mg PO DAILY [facility] Last Admin: 06/28/17 09:17 Dose: 15 mg Sodium Bicarbonate (Sodium Bicarbonate (Antacid)*) 650 mg PO Q4HR [facility] Last Admin: 06/28/17 09:17 Dose: 650 mg Spironolactone (Aldactone Tab*) 25 mg PO DAILY [facility] Last Admin: 06/28/17 09:17 Dose: 25 mg Tramadol HCl (Ultram*) 50 mg PO Q6HR PRN PRN Reason: PAIN Last Admin: 06/28/17 09:18 Dose: 50 mg Vital Signs - 8 hr 06/28/17 06/28/17 06/28/17 02:15 02:22 02:30 Temperature Pulse Rate 110 108 110 Respiratory 20 41 17 Rate Blood Pressure 153/111 125/93 (mmHg) O2 Sat by Pulse 97 98 95 Oximetry 06/28/17 06/28/17 06/28/17 02:46 03:00 03:01 Temperature Pulse Rate 110 102 107 Respiratory 16 26 19 Rate Blood Pressure 141/111 145/106 (mmHg) O2 Sat by Pulse 97 96 97 Oximetry 06/28/17 06/28/17 06/28/17 03:02 03:15 03:30 Temperature Pulse Rate 112 105 110 Respiratory 19 19 19 Rate Blood Pressure 158/98 175/98 (mmHg) O2 Sat by Pulse 99 97 95 Oximetry 06/28/17 06/28/17 06/28/17 03:45 04:00 04:04 Temperature 97.6 F Pulse Rate 106 97 120 Respiratory 19 27 18 Rate Blood Pressure 126/79 132/91 (mmHg) O2 Sat by Pulse 98 96 100 Oximetry 06/28/17 06/28/17 06/28/17 04:15 04:24 04:30 Temperature Pulse Rate 110 108 118 Respiratory 18 15 17 Rate Blood Pressure 155/82 134/83 (mmHg) O2 Sat by Pulse 99 94 88 Oximetry 06/28/17 06/28/17 06/28/17 04:50 05:00 05:26 Temperature Pulse Rate 115 110 114 Respiratory 14 16 18 Rate Blood Pressure 140/78 (mmHg) O2 Sat by Pulse 100 100 100 Oximetry 06/28/17 06/28/17 06/28/17 05:30 06:00 06:03 Temperature Pulse Rate 112 113 117 Respiratory 14 15 16 Rate Blood Pressure 149/98 125/103 (mmHg) O2 Sat by Pulse 89 100 99 Oximetry 06/28/17 06/28/17 06/28/17 06:31 07:00 07:06 Temperature Pulse Rate 125 117 114 Respiratory 15 17 16 Rate Blood Pressure 145/90 (mmHg) O2 Sat by Pulse 99 100 100 Oximetry 06/28/17 06/28/17 06/28/17 07:30 08:00 08:26 Temperature 98.1 F Pulse Rate 116 117 Respiratory 18 22 21 Rate Blood Pressure 146/116 146/101 (mmHg) O2 Sat by Pulse 100 99 Oximetry 06/28/17 06/28/17 06/28/17 08:30 08:47 09:00 Temperature Pulse Rate 115 118 114 Respiratory 21 20 36 Rate Blood Pressure 155/85 (mmHg) O2 Sat by Pulse 100 100 100 Oximetry 06/28/17 09:06 Temperature Pulse Rate 118 Respiratory 23 Rate Blood Pressure (mmHg) O2 Sat by Pulse 99 Oximetry Oxygen Devices in Use Now: Nasal Cannula Appearance: chronically ill appearing. Eyes: No Scleral Icterus, PERRLA Ears/Nose/Mouth/Throat: NL Teeth, Lips, Gums, Mucous Membranes Moist Neck: - - JVD to mandible. Respiratory: - - rales at bases Cardiovascular: - - Irregularly irregular, tachycardic. Abdominal: - - slight suprapubic and occ LLQ tenderness. no rebound or guarding. Extremities: - - trace edema Skin: No Rash or Ulcers Neurological: Alert and Oriented x 3, NL Sensation Lines/Tubes/Other Access: Clean, Dry and Intact Glass Result Diagrams: 06/28/17 06:55 06/28/17 06:55 Additional Lab and Data: Laboratory Results - last 24 hr 06/27/17 06/27/17 06/27/17 20:16 20:16 23:17 WBC RBC Hgb Hct MCV MCH MCHC RDW Plt Count MPV Neut % (Auto) Lymph % (Auto) [place] % (Auto) Eos % (Auto) Baso % (Auto) Absolute Neuts (auto) Absolute Lymphs (auto) Absolute Monos (auto) Absolute Eos (auto) Absolute Basos (auto) Absolute Nucleated RBC Nucleated RBC % Sodium Potassium Chloride Carbon Dioxide Anion Gap BUN Creatinine Est GFR ( Amer) Est GFR (Non-Af Amer) BUN/Creatinine Ratio Glucose Lactic Acid 2.1 H* Calcium Troponin I 0.03 B-Natriuretic Peptide Procalcitonin < 0.1 TSH 1.85 Urine Color Urine Appearance Urine pH Ur Specific [place] Urine Protein Urine Ketones Urine Blood Urine Nitrate Urine Bilirubin Urine Urobilinogen Ur Leukocyte Esterase Urine WBC (Auto) Urine RBC (Auto) Ur Squamous Epith Cells Urine Bacteria Urine Glucose 06/27/17 06/28/17 06/28/17 23:31 01:59 02:44 WBC RBC Hgb Hct MCV MCH MCHC RDW Plt Count MPV Neut % (Auto) Lymph % (Auto) [place] % (Auto) Eos % (Auto) Baso % (Auto) Absolute Neuts (auto) Absolute Lymphs (auto) Absolute Monos (auto) Absolute Eos (auto) Absolute Basos (auto) Absolute Nucleated RBC Nucleated RBC % Sodium 135 Potassium TNP 5.9 H Chloride 116 H Carbon Dioxide 11 L* Anion Gap 8 BUN 57 H Creatinine 2.59 H Est GFR ( Amer) 22.7 Est GFR (Non-Af Amer) 17.6 BUN/Creatinine Ratio 22.0 H Glucose 143 H Lactic Acid Calcium 8.3 L Troponin I B-Natriuretic Peptide Procalcitonin TSH Urine Color Ann[place]arie Urine Appearance Turbid Urine pH 5.0 [address] [place] [employer] [place] 1.012 Urine Protein 2+(100 mg/dl) H Urine Ketones Negative Urine Blood 2+ H Urine Nitrate Negative Urine Bilirubin Negative Urine Urobilinogen Negative Ur Leukocyte Esterase 3+ H Urine WBC (Auto) 3+(>20/hpf) H Urine RBC (Auto) 3+(>10/hpf) H Ur Squamous Epith Cells Present H Urine Bacteria 2+ H Urine Glucose Negative 06/28/17 06/28/17 06/28/17 06:55 06:55 06:55 WBC 16.3 H RBC 3.91 L Hgb 8.0 L Hct 28 L MCV 71 L MCH 20 L MCHC 29 L RDW 20 H Plt Count 232 MPV 9 Neut % (Auto) 89.1 H Lymph % (Auto) 7.6 L [place] % (Auto) 3.0 Eos % (Auto) 0 Baso % (Auto) 0.3 Absolute Neuts (auto) 14.5 H Absolute Lymphs (auto) 1.2 Absolute Monos (auto) 0.5 Absolute Eos (auto) 0 Absolute Basos (auto) 0 Absolute Nucleated RBC 0.09 Nucleated RBC % 0.6 Sodium 138 Potassium 5.3 H Chloride 117 H Carbon Dioxide 13 L* Anion Gap 8 BUN 58 H Creatinine 2.51 H Est GFR ( Amer) 23.5 Est GFR (Non-Af Amer) 18.3 BUN/Creatinine Ratio 23.1 H Glucose 147 H Lactic Acid Calcium 7.7 L Troponin I B-Natriuretic Peptide 2240 H Procalcitonin TSH Urine Color Urine Appearance Urine pH Ur Specific [place] Urine Protein Urine Ketones Urine Blood Urine Nitrate Urine Bilirubin Urine Urobilinogen Ur Leukocyte Esterase Urine WBC (Auto) Urine RBC (Auto) Ur Squamous Epith Cells Urine Bacteria Urine Glucose Microbiology and Other Data: Microbiology 06/27/17 21:49 Stool Shiga Toxin I & II - Final Negative Shiga Toxin 1 & 2 06/28/17 00:27 Nasal Nasal Screen MRSA (PCR)(VERONICA) - Final Mrsa Negative 06/27/17 21:49 Stool Stool Gross Appearance - Final 06/27/17 21:49 Stool C. difficile DNA Amplification - Final 027 Presumptive NEGATIVE Toxigenic C.diff NEGATIVE 06/27/17 21:49 Stool Stool Lactoferrin - Final 06/27/17 21:49 Stool Stool Occult Blood (VERONICA) - Final Assess/Plan/Problems-Billing Assessment: 86 yo female PMH HFrEF(30%), MVR, chronic Afib, CAD (s/p RCA stent), with recent breast Cancer reoccurence p/w abdominal pain, SOB, UTI, TABATHA. Palliative Care consulted. - Patient Problems (1) Cardiomyopathy Current Visit: No Status: Acute Code(s): I42.9 - CARDIOMYOPATHY, UNSPECIFIED SNOMED Code(s): 66205623 Comment: Ischemic with latest EF reportedly 30% ( last [facility] ECHO 09/23/16 EF 40 -45%, mod MVR, mod pHTN) BNP elevated to 2240. Stopped IVF (given in setting of UTI). Home med was lasix 40mg daily, restart diuresis as soon as able. pleural effusions b/l. (2) Systolic heart failure Current Visit: No Status: Acute Code(s): I50.20 - UNSPECIFIED SYSTOLIC ( CONGESTIVE) HEART FAILURE SNOMED Code(s): 229775418 Comment: Obtain Dr. Hensley recent ECHO report, plan as above. (3) Atrial fibrillation with RVR Current Visit: No Status: Acute Code(s): I48.91 - UNSPECIFIED ATRIAL FIBRILLATION SNOMED Code(s): 562332936411245 Comment: Continue digoxin. Continue xarelto. Mg>2, check in AM. (4) Hyperkalemia Current Visit: No Status: Acute Code(s): E87.5 - HYPERKALEMIA SNOMED Code( s): 28514303 Comment: s/p Kayexalate. In setting of TABATHA, likely ATN. hold spironolactone. bicarb (5) Sepsis Current Visit: No Status: Acute Comment: Likely Secondary to UTI. SIRS (HR, leukocytosis, lactic acidosis, f/u Blood cultures Cont empiric ceftriaxone (6) UTI (urinary tract infection) Current Visit: No Status: Acute Comment: f/u culture. UA with 3+ LE, 3+ wbc , 2+ bacteria. CFTX. (7) CAD (coronary artery disease) Current Visit: No Status: Chronic Code(s): I25.10 - ATHSCL HEART DISEASE OF [place] CORONARY ARTERY W/O ANG PCTRS SNOMED Code(s): 93039830 Comment: Continue metoprolol and statin. troponin 0.03 Status and Disposition: medicine inpatient. ICU Attending: Avi Ayala
[2017-06-28] MEDS: Pantoprazole IV* 40 MG IV SCH (10:27)
[2017-06-28] MEDS: Digoxin TAB* 0.125 MG PO SCH (18:27)
[2017-06-28] MEDS ORDERED: Morphine INJ* 2 MG/ML 1 ML SYRINGE (TWO MG - NEW SYRINGE VERSION) IV ONE (21:00)
[2017-06-29] MEDS: Sodium Bicarbonate (ANTACID)* 650 MG TAB PO SCH ×6 (01:48→21:14)
[2017-06-29] MEDS: Morphine INJ* 2 MG/ML 1 ML SYRINGE (TWO MG - NEW SYRINGE VERSION) IV PRN ×4 (01:49→20:04)
[2017-06-29] MEDS ORDERED: Morphine INJ* 2 MG/ML 1 ML SYRINGE (TWO MG - NEW SYRINGE VERSION) IV ONE (05:50)
[2017-06-29] MEDS ORDERED: Morphine INJ* 2 MG/ML 1 ML SYRINGE (TWO MG - NEW SYRINGE VERSION) ONE (05:50)
[2017-06-29 05:55] LABS: ABS Basophils 0.1 10^3/ul (0-0.2); ABS Eosinophils 0 10^3/ul (0-0.6); ABS Lymphocytes 1.3 10^3/ul (1.0-4.8); ABS Monocytes 1.6 10^3/ul (0-0.8); ABS Neutrophils 23.5 10^3/ul (1.5-7.7); ABS Nucleated RBC 0.09 10^3/ul; Eosinophil % 0 % (0-6); Hematocrit 29 % (35-47); Hemoglobin 8.2 g/dl (12.0-16.0); Lymphocyte % 4.9 % (25-47); Mean Corpuscular HGB Conc 28 g/dl (31-36); Mean Corpuscular Hemoglobin 20 pg (27-31); Mean Platelet Volume 9 um3 (7.4-10.4); Nucleated Red Blood Cells % 0.3; Platelet Count 249 10^3/ul (150-450); Red Blood Count 4.05 10^6/ul (4.0-5.4); Red Cell Distribution Width 21 % (10.5-15); White Blood Count 26.4 10^3/ul (3.5-10.8)
[2017-06-29 05:57] LABS: Mean Corpuscular Volume 71 fL (80-97)
[2017-06-29] MEDS: traMADol TAB* 50 MG PO PRN ×2 (05:59→21:17)
[2017-06-29 06:00] LABS: EGFR Non-African American 15.8 (>60)
[2017-06-29] MEDS ORDERED: Magnesium Sulfate IV* 3 GM in NS 0.9% 100 ML* 100 ML IVPB ONE (07:25)
[2017-06-29] MEDS ORDERED: Magnesium Sulfate 2 GM IV IVPB ONE (08:00)
[2017-06-29] MEDS ORDERED: Magnesium Sulfate 1 GM IV* 1 GM/100 ML BAG IV ONE (09:00)
[2017-06-29] MEDS: Pantoprazole IV* 40 MG IV SCH (09:06)
[2017-06-29] MEDS: Rivaroxaban TAB(*) 15 MG PO SCH (09:18)
[2017-06-29] MEDS: Atorvastatin* 10 MG TAB PO SCH (09:18)
[2017-06-29] MEDS: Metoprolol Tartrate TAB* 100 MG TAB PO SCH ×2 (09:19→20:05)
[2017-06-29] MEDS: cefTRIAXone(*) 1 GM in D5W 50 ML BAG* 50 ML IVPB SCH (09:26)
[2017-06-29] MEDS ORDERED: Sodium Polystyrene ORAL.SOL* 15 GM/60 ML BTL PO ONE (11:07)
[2017-06-29] MEDS: Ondansetron INJ* 2 MG/ML VIAL IV PRN ×2 (14:28→21:25)
[2017-06-29] MEDS: Digoxin TAB* 0.125 MG PO SCH (17:37)
--- NOTE | 2017-06-29 18:19 | PN ---
Subjective Date of Service: 06/29/17 Interval History: Feeling better today, no abd pain at moment. Off oxygen. Transferred out of ICU. Afib rates better controlled. 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 Palliative talked to pt who was interested in hospice. Ecoli on UCx. WBC increasing. Afebrile. Objective Active Medications: Atorvastatin Calcium (Lipitor*) 10 mg PO EVERY OTHER DAY [facility] Last Admin: 06/29/17 09:18 Dose: 10 mg Digoxin (Lanoxin Tab*) 0.125 mg PO DAILY@1700 [facility] Last Admin: 06/29/17 17:37 Dose: 0.125 mg Ceftriaxone Sodium 1 gm/ (Dextrose) 50 mls @ 200 mls/hr IVPB Q24H [facility] Last Admin: 06/29/17 09:26 Dose: 200 mls/hr Metoprolol Tartrate (Lopressor Tab*) 100 mg PO BID [facility] Last Admin: 06/29/17 09:19 Dose: 100 mg Morphine Sulfate (Morphine Inj (Syringe)*) 2 mg IV Q2H PRN PRN Reason: PAIN Last Admin: 06/29/17 09:20 Dose: 2 mg Nitroglycerin (Nitroglycerin Tab 0.4 Mg*) 0.4 mg SL Q5M PRN PRN Reason: PAIN - CHEST Ondansetron HCl (Zofran Inj*) 8 mg IV Q4H PRN PRN Reason: NAUSEA/VOMITING Last Admin: 06/29/17 14:28 Dose: 8 mg Pantoprazole Sodium (Protonix Iv*) 40 mg IV Q24H [facility] Last Admin: 06/29/17 09:06 Dose: 40 mg Sodium Bicarbonate (Sodium Bicarbonate (Antacid)*) 650 mg PO Q4HR [facility] Last Admin: 06/29/17 17:37 Dose: 650 mg Tramadol HCl (Ultram*) 50 mg PO Q6HR PRN PRN Reason: PAIN Last Admin: 06/29/17 05:59 Dose: 50 mg Vital Signs - 8 hr 06/29/17 06/29/17 06/29/17 10:30 11:00 11:31 Temperature Pulse Rate 89 97 99 Respiratory 26 13 15 Rate Blood Pressure 111/47 102/62 (mmHg) O2 Sat by Pulse 94 98 96 Oximetry 06/29/17 06/29/17 06/29/17 11:35 11:48 12:00 Temperature 98.7 F Pulse Rate 110 Respiratory 12 15 Rate Blood Pressure 110/61 (mmHg) O2 Sat by Pulse 95 Oximetry 06/29/17 06/29/17 06/29/17 12:31 13:00 13:48 Temperature 97.7 F Pulse Rate 99 Respiratory 14 16 14 Rate Blood Pressure 109/70 108/53 109/50 (mmHg) O2 Sat by Pulse 98 Oximetry 06/29/17 06/29/17 06/29/17 14:15 15:28 16:00 Temperature 97.2 F Pulse Rate 114 105 Respiratory 14 12 Rate Blood Pressure 119/85 (mmHg) O2 Sat by Pulse 97 Oximetry 06/29/17 17:37 Temperature Pulse Rate 105 Respiratory Rate Blood Pressure (mmHg) O2 Sat by Pulse Oximetry Oxygen Devices in Use Now: None Appearance: Chronically Ill but much less distress today Eyes: No Scleral Icterus, PERRLA Ears/Nose/Mouth/Throat: NL Teeth, Lips, Gums, Mucous Membranes Moist Neck: NL Appearance and Movements; NL JVP Respiratory: Symmetrical Chest Expansion and Respiratory Effort, - - reduced right base, slight rales left base. no rhonchi or wheezing. Cardiovascular: - - irregularly irregular, no murmurs appreciated; 1+ edema; less JVD than yesterday Abdominal: NL Sounds; No Tenderness; No Distention, - - slightly tender to LLQ Extremities: - - 1+ edema; dopplerable pulses, thready by palpation on right Skin: No Rash or Ulcers Neurological: Alert and Oriented x 3 Lines/Tubes/Other Access: Clean, Dry and Intact Glass Nutrition: Taking PO's Result Diagrams: 06/29/17 05:30 06/29/17 05:30 Additional Lab and Data: Laboratory Results - last 24 hr 06/29/17 06/29/17 06/29/17 05:30 05:30 11:54 WBC 26.4 H RBC 4.05 Hgb 8.2 L Hct 29 L MCV 71 L MCH 20 L MCHC 28 L RDW 21 H Plt Count 249 MPV 9 Neut % (Auto) 88.7 H Lymph % (Auto) 4.9 L [place] % (Auto) 6.0 Eos % (Auto) 0 Baso % (Auto) 0.4 Absolute Neuts (auto) 23.5 H Absolute Lymphs (auto) 1.3 Absolute Monos (auto) 1.6 H Absolute Eos (auto) 0 Absolute Basos (auto) 0.1 Absolute Nucleated RBC 0.09 Nucleated RBC % 0.3 Normal RBC Morphology Not Reportable Hypochromasia 2+ Microcytosis 1+ [place] Cells 1+ Elliptocytes 1+ Acanthocytes (Spur) 1+ Sodium 138 Potassium 5.7 H Chloride 116 H Carbon Dioxide 15 L Anion Gap 7 BUN 60 H Creatinine 2.85 H Est GFR ( Amer) 20.3 Est GFR (Non-Af Amer) 15.8 BUN/Creatinine Ratio 21.1 H Glucose 111 H Calcium 8.7 Magnesium 1.5 L Ur Random Creatinine 113.20 Ur Random Sodium 22 Ur Random Urea Nitrogn 588 Renal Sodium Excretion 06/29/17 11:54 WBC RBC Hgb Hct MCV MCH MCHC RDW Plt Count MPV Neut % (Auto) Lymph % (Auto) [place] % (Auto) Eos % (Auto) Baso % (Auto) Absolute Neuts (auto) Absolute Lymphs (auto) Absolute Monos (auto) Absolute Eos (auto) Absolute Basos (auto) Absolute Nucleated RBC Nucleated RBC % Normal RBC Morphology Hypochromasia Microcytosis [place] Cells Elliptocytes Acanthocytes ([place]) Sodium Potassium Chloride Carbon Dioxide Anion Gap BUN Creatinine Est GFR ( Amer) Est GFR (Non-Af Amer) BUN/Creatinine Ratio Glucose Calcium Magnesium Ur Random Creatinine 114.25 Ur Random Sodium 21 Ur Random Urea Nitrogn Renal Sodium Excretion 0.37 Microbiology and Other Data: Microbiology 06/27/17 21:49 Stool Stool Culture - Final 06/27/17 21:49 Stool Shiga Toxin I & II - Final Negative Shiga Toxin 1 & 2 06/27/17 23:31 Urine Urine Culture - Preliminary Escherichia Coli 06/28/17 00:27 Nasal Nasal Screen MRSA (PCR)(VERONICA) - Final Mrsa Negative 06/27/17 21:49 Stool Stool Gross Appearance - Final 06/27/17 21:49 Stool C. difficile DNA Amplification - Final 027 Presumptive NEGATIVE Toxigenic C.diff NEGATIVE 06/27/17 21:49 Stool Stool Lactoferrin - Final 06/27/17 21:49 Stool Stool Occult Blood (VERONICA) - Final Assess/Plan/Problems-Billing Assessment: 86 yo female PMH HFrEF(30%), mod-severe MVR, mod-severe TVR, chronic Afib, CAD ( s/p RCA stent), with reported breast Cancer recurrence p/w abdominal pain, SOB, Ecoli UTI, TABATHA. Palliative Care consulted and pt wanting hospice. Out of ICU - Patient Problems (1) Cardiomyopathy Current Visit: No Status: Acute Code(s): I42.9 - CARDIOMYOPATHY, UNSPECIFIED SNOMED Code(s): 48545273 Comment: Ischemic with Sept ECHO EF 30-35% with mod-severe MVR, mod-severe TVR ( worse than [place] [facility] [place] EF 40-45%, mod MVR, mod pHTN) BNP elevated to 2240. Continue to hold IVF (given in setting of UTI). Home med was lasix 40mg daily, plan restart diuresis 06/30. pleural effusions b/l. daily weights strict ios (2) Systolic heart failure Current Visit: No Status: Acute Code(s): I50.20 - UNSPECIFIED SYSTOLIC ( CONGESTIVE) HEART FAILURE SNOMED Code(s): 237987039 Comment: plan as above. Chronic, some worsening with IVF (3) Atrial fibrillation with RVR Current Visit: No Status: Acute Code(s): I48.91 - UNSPECIFIED ATRIAL FIBRILLATION SNOMED Code(s): 659941352707066 Comment: Continue digoxin. Got dose of Xarelto but CrCl now worsened again. Hold for now. Pt now wanting hospice, wont start heparin gtt or coumadin. start eliquis 2.5mg BID if kidney function improves replete Mg>2, needs today (4) Hyperkalemia Current Visit: No Status: Acute Code(s): E87.5 - HYPERKALEMIA SNOMED Code( s): 79381168 Comment: s/p Kayexalate, repeat. In setting of TABATHA/cardiorenal syndrome hold spironolactone. bicarb po (5) Sepsis Current Visit: No Status: Acute Comment: Likely Secondary to Ecoli UTI. SIRS (tachycardia, leukocytosis(worsening), lactic acidosis(resolved), hypoxia) Blood cultures not obtained on admission. Cont empiric ceftriaxone, f/u sensitivities (6) UTI (urinary tract infection) Current Visit: No Status: Acute Comment: Ecoli >100K. UA with 3+ LE, 3+ wbc , 2+ bacteria. CFTX. (7) CAD (coronary artery disease) Current Visit: No Status: Chronic Code(s): I25.10 - ATHSCL HEART DISEASE OF [place] CORONARY ARTERY W/O ANG PCTRS SNOMED Code(s): 27933702 Comment: Continue metoprolol and statin. troponin 0.03 (8) Goals of care, counseling/discussion Current Visit: Yes Status: Acute Code(s): Z71.89 - OTHER SPECIFIED COUNSELING SNOMED Code(s): 519496478 Comment: Appreciate palliative care recs. Pt interested in hospice. (9) Breast cancer Current Visit: Yes Status: Acute Code(s): C50.919 - MALIGNANT NEOPLASM OF UNSP SITE OF UNSPECIFIED FEMALE BREAST SNOMED Code(s): 539073807 Comment: s/p left mastectomy; per pt has had biopsy on right showing recurrence but did not get cardiac clearance from Dr. Hensley for surgery ( did not mention last progress note). Palliative recs appreciated. Status and Disposition: medicine inpatient. transferred from ICU. Benefit from Rehab per PT; home hospice likely ultimate destination Attending: Avi Ayala
--- NOTE | 2017-06-29 22:03 | CONS ---
CC: Dr. nAtoni Almanzar; Dr. Hensley * PALLIATIVE CARE CONSULTATION: DATE OF CONSULT: 06/29/17 PRIMARY CARE PHYSICIAN: Dr. Antoni Almanzar. MEAL ATTENDANT: Dr. Hensley. REFERRING PHYSICIAN FOR CONSULT: Avi Ayala MD HOSPITAL COURSE: This is an 86-year-old female with a past medical history of ischemic cardiomyopathy with an ejection fraction of 30%, recurrent breast cancer, and CKD, who presented to the emergency room on 06/27/17 with abdominal pain. On admission, the patient was admitted to the intensive care unit for thoughts of sepsis secondary to an urinary tract infection. She was also noted to have metabolic acidosis and ST depression on her EKG with worsening renal failure. She was transferred out to the floor on 06/28/17 with her symptoms improving. The patient states she still has some left-sided abdominal discomfort. When asked about how the patient has been managing at home, she states not well. She lives on the third floor. She gets very short of breath just walking down the hallway to get to the elevator, to get down the stairs as she lives on the third floor. She states that she is always short of breath. She is now for the past 2 weeks with significant amount of left-sided pain. She states she just saw Dr. Hensley last on 06/21/17, who stated that she could not withstand any treatment for her recurrent right-sided breast cancer and he talked to her about following up with her primary care physician to discuss hospice and she was scheduled to have an appointment next , 07/05/17, with Dr. Almanzar to do that. When discussing her multiple admissions this year, she says she is no longer interested in coming back to the hospital. She does not want to pursue further treatment. She wants to stay at home with hospice. At this time, the patient was managing at home relatively well ambulating with a walker. She did fall 2 weeks ago. She does have a good ilia friend that comes and visits her and family in the area. She denies any changes in her weight and she states she has normal bowel habits. When discussed about her failing kidneys, she states she is not interested in dialysis as well. Otherwise, remaining review of systems negative. PAST MEDICAL HISTORY: 1. Ischemic cardiomyopathy with an ejection fraction of 30%. 2. Coronary artery disease, status post PCI. 3. History of breast cancer, status post mastectomy, now with recurrence on the right side. 4. Hypertension. 5. Hyperlipidemia. 6. COPD. 7. Chronic atrial fibrillation. 8. History or corneal transplant. 9. Cataract surgery. 10. History of left mastectomy. 11. Renal artery stenosis, status post stenting. 12. Appendectomy. 13. Hysterectomy. 14. Left knee arthroplasty. 15. Loaeoqgb-tu-vivgfr MR. 16. Insomnia. 17. Atopic dermatitis. 18. Tobacco use. INPATIENT MEDICATIONS: 1. Atorvastatin 10 mg every other day. 2. Digoxin 0.125 mg daily. 3. Metoprolol tartrate 100 mg p.o. b.i.d. 4. Morphine 2 mg every 2 hours as needed. 5. Nitro sublingual q.5 minutes as needed. 6. Zofran 8 mg IV q.4 hours as needed. 7. Pantoprazole 40 mg IV q.24 hours. 8. Ceftriaxone 1 g daily. 9. Sodium bicarb 650 q.4 hours. 10. Tramadol 50 mg q.6 hours as needed. ALLERGIES: TYLENOL, ASPIRIN, and IODINE. FAMILY HISTORY: Reviewed and noncontributory. SOCIAL HISTORY: As mentioned, the patient lives in [facility] on the third floor. She ambulates with a walker. She states she is smoking, but her boyfriend is not aware of this. No alcohol or illicit drug use. Her healthcare proxy is her son, Alvarado, and her daughter, Flower. She has 3 children in total. Her code status is DNR/DNI and will update to modify comfort measures only with no further rehospitalization. REVIEW OF SYSTEMS: A 14-point review of systems as mentioned in the HPI, otherwise negative. PHYSICAL EXAM: Vitals: Temp 97.7, pulse rate 99, respiratory rate 14, oxygen saturations 98% on room air, blood pressure 109/50. General: No acute distress , resting comfortably. HEENT: Head, normocephalic. Eyes: Anicteric. Oropharynx: Mucous membranes are moist. Neck is supple. No lymphadenopathy. Cardiac: Tachycardic, irregularly irregular rate and rhythm. Respiratory: Diminished breath sounds, bibasilar rales. No increased work of breathing. Abdomen: Soft, some tenderness on the left side. No rebound or guarding. Extremities: Not able to palpate pulses. Chronic hemosiderin changes. Extremities are cool. No pretibial edema. Neurologic: Alert and oriented x3. No focal neurologic deficits. LABORATORY DATA: White count 26.4, hemoglobin 8.2, hematocrit 29, platelets 249. Sodium 138, potassium 5.7, chloride 106, bicarb 15, BUN 60, creatinine 2.85 , mag of 1.5. BNP is 2240. ASSESSMENT AND PLAN: This is an 86-year-old female with past medical history of chronic kidney disease, ischemic cardiomyopathy, and breast cancer, who presented to the emergency room with worsening abdominal discomfort. Findings concerning for a urinary tract infection. The patient is requesting comfort measures only. No further rehospitalization and is interested in hospice. If she has a safe discharge plan back to [facility], I would recommend enrolment with hospice with a principal diagnosis of end-stage renal failure with a creatinine clearance of 13, secondary diagnosis of ischemic cardiomyopathy and now with recurrent breast cancer. I will follow up with Physical Therapy in terms of a safe discharge plan, if not the patient would need to go to a long term or a residence with hospice. Thank you for this consultation. We will follow along with you. PATIENT TIME: Greater than 60 minutes was spent doing this consultation, more than half the time was spent in direct patient contact. [id number]/[facility] #: [id number] ERIK
[2017-06-30] MEDS: Sodium Bicarbonate (ANTACID)* 650 MG TAB PO SCH ×6 (02:19→22:21)
[2017-06-30] MEDS: Metoprolol Tartrate TAB* 100 MG TAB PO SCH ×2 (09:58→20:40)
[2017-06-30 09:59] LABS: ABS Basophils 0 10^3/ul (0-0.2); ABS Eosinophils 0 10^3/ul (0-0.6); ABS Lymphocytes 1.3 10^3/ul (1.0-4.8); ABS Monocytes 1.2 10^3/ul (0-0.8); ABS Neutrophils 21.6 10^3/ul (1.5-7.7); ABS Nucleated RBC 0.03 10^3/ul; Eosinophil % 0.1 % (0-6); Hematocrit 26 % (35-47); Hemoglobin 7.4 g/dl (12.0-16.0); Lymphocyte % 5.3 % (25-47); Mean Corpuscular HGB Conc 29 g/dl (31-36); Mean Corpuscular Hemoglobin 20 pg (27-31); Mean Platelet Volume 8 um3 (7.4-10.4); Nucleated Red Blood Cells % 0.1; Platelet Count 233 10^3/ul (150-450); Red Blood Count 3.68 10^6/ul (4.0-5.4); Red Cell Distribution Width 21 % (10.5-15); White Blood Count 24.2 10^3/ul (3.5-10.8)
[2017-06-30] MEDS: Pantoprazole IV* 40 MG IV SCH (09:59)
[2017-06-30 10:01] LABS: Mean Corpuscular Volume 70 fL (80-97)
[2017-06-30] MEDS: cefTRIAXone(*) 1 GM in NS 0.9% 50 ML* 50 ML IVPB SCH (10:10)
[2017-06-30 10:16] LABS: EGFR Non-African American 14.4 (>60)
--- NOTE | 2017-06-30 11:15 | PN ---
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 Lumbar back pain returned as well as some suprapubic abdominal pain. back on 1.5L NC. swelling in legs increased and JVD to mandible again. Would refuse to go to SNF/NH (would "kill herself" before going to a NH given previous experience at [place] this year). Still interested in home hospice. Objective Active Medications: Atorvastatin Calcium (Lipitor*) 10 mg PO EVERY OTHER DAY [facility] Last Admin: 06/29/17 09:18 Dose: 10 mg Digoxin (Lanoxin Tab*) 0.125 mg PO DAILY@1700 [facility] Last Admin: 06/29/17 17:37 Dose: 0.125 mg Ceftriaxone Sodium 1 gm/ (Sodium Chloride) 50 mls @ 200 mls/hr IVPB Q24HR [facility] Last Admin: 06/30/17 10:10 Dose: 200 mls/hr Metoprolol Tartrate (Lopressor Tab*) 100 mg PO BID [facility] Last Admin: 06/30/17 09:58 Dose: 100 mg Morphine Sulfate (Morphine Inj (Syringe)*) 2 mg IV Q2H PRN PRN Reason: PAIN Last Admin: 06/29/17 20:04 Dose: 2 mg Nitroglycerin (Nitroglycerin Tab 0.4 Mg*) 0.4 mg SL Q5M PRN PRN Reason: PAIN - CHEST Ondansetron HCl (Zofran Inj*) 8 mg IV Q4H PRN PRN Reason: NAUSEA/VOMITING Last Admin: 06/29/17 21:25 Dose: 8 mg Pantoprazole Sodium (Protonix Iv*) 40 mg IV Q24H [facility] Last Admin: 06/30/17 09:59 Dose: 40 mg Sodium Bicarbonate (Sodium Bicarbonate (Antacid)*) 650 mg PO Q4HR [facility] Last Admin: 06/30/17 09:58 Dose: 650 mg Tramadol HCl (Ultram*) 50 mg PO Q6HR PRN PRN Reason: PAIN Last Admin: 06/29/17 21:17 Dose: 50 mg Vital Signs - 8 hr 06/30/17 06/30/17 06/30/17 04:07 07:29 08:00 Temperature 97.6 F 98.3 F Pulse Rate 96 105 Respiratory 18 16 18 Rate Blood Pressure 123/46 103/52 (mmHg) O2 Sat by Pulse Oximetry 06/30/17 09:37 Temperature Pulse Rate 72 Respiratory Rate Blood Pressure (mmHg) O2 Sat by Pulse 100 Oximetry Oxygen Devices in Use Now: Nasal Cannula Appearance: NAD Eyes: No Scleral Icterus, PERRLA Neck: NL Appearance and Movements; NL JVP Respiratory: - - rales b/l bases. no wheezing or rhonchi Cardiovascular: - - irregularly irregular Abdominal: - - suprapubic tenderness and some RUQ tenderness on hepatojugalar reflex testing. Extremities: - - 1+ edema Skin: No Rash or Ulcers Neurological: Alert and Oriented x 3 Lines/Tubes/Other Access: Clean, Dry and Intact Glass Result Diagrams: 06/30/17 09:25 06/30/17 09:25 Additional Lab and Data: Laboratory Results - last 24 hr 06/29/17 06/30/17 06/30/17 11:54 09:25 09:25 WBC 24.2 H RBC 3.68 L Hgb 7.4 L Hct 26 L MCV 70 L MCH 20 L MCHC 29 L RDW 21 H Plt Count 233 MPV 8 Neut % (Auto) 89.4 H Lymph % (Auto) 5.3 L Stokes % (Auto) 5.0 Eos % (Auto) 0.1 Baso % (Auto) 0.2 Absolute Neuts (auto) 21.6 H Absolute Lymphs (auto) 1.3 Absolute Monos (auto) 1.2 H Absolute Eos (auto) 0 Absolute Basos (auto) 0 Absolute Nucleated RBC 0.03 Nucleated RBC % 0.1 Sodium 138 135 Potassium 5.0 Chloride 110 Carbon Dioxide 16 L Anion Gap 9 BUN 62 H Creatinine 2.85 H 3.09 H Est GFR ( Amer) 18.5 Est GFR (Non-Af Amer) 14.4 BUN/Creatinine Ratio 20.1 H Glucose 112 H Calcium 8.6 Magnesium 2.2 Microbiology and Other Data: Microbiology 06/27/17 23:31 Urine Urine Culture - Final Escherichia Coli Assess/Plan/Problems-Billing Assessment: 86 yo female PMH HFrEF(30%), mod-severe MVR, mod-severe TVR, chronic Afib, CAD ( s/p RCA stent), with pt reported breast Cancer recurrence p/w abdominal pain, SOB, Ecoli UTI, TABATHA. Renal Function worsening. Palliative Care consulted and pt wanting home hospice. - Patient Problems (1) TABATHA (acute kidney injury) Current Visit: Yes Status: Acute Code(s): N17.9 - ACUTE KIDNEY FAILURE, UNSPECIFIED SNOMED Code(s): 70092793 Comment: worsening with FeNa consistent with prerenal (0.37%), suspect mixed etiology of heart failure/vascular congestion along with UTI. palliative/hospice planned. will restart diuresis given volume overload. (2) Cardiomyopathy Current Visit: No Status: Acute Code(s): I42.9 - CARDIOMYOPATHY, UNSPECIFIED SNOMED Code(s): 89210147 Comment: Ischemic with Sept ECHO EF 30-35% with mod-severe MVR, mod-severe TVR ( worse than last [facility] [place] ECHO 09/23/16 EF 40-45%, mod MVR, mod pHTN) BNP elevated to 2240.. Home med was lasix 40mg daily. started torsemide 20mg daily pleural effusions b/l. daily weights (up to 146, upper level dry weight is 142) strict ios (3) Systolic heart failure Current Visit: No Status: Acute Code(s): I50.20 - UNSPECIFIED SYSTOLIC ( CONGESTIVE) HEART FAILURE SNOMED Code(s): 512145323 Comment: plan as above. Acute on Chronic (4) Atrial fibrillation with RVR Current Visit: No Status: Acute Code(s): I48.91 - UNSPECIFIED ATRIAL FIBRILLATION SNOMED Code(s): 089349939280899 Comment: Continue digoxin. Got dose of Xarelto but CrCl now worsened again. Hold for now. Pt now wanting hospice, wont start heparin gtt or coumadin. consider start eliquis 2.5mg BID if kidney function improves but it has not replete Mg>2, (5) Hyperkalemia Current Visit: No Status: Acute Code(s): E87.5 - HYPERKALEMIA SNOMED Code( s): 35579618 Comment: s/p Kayexalate x2, improved. In setting of TABATHA/cardiorenal syndrome hold spironolactone. bicarb po (6) Sepsis Current Visit: No Status: Acute Comment: Likely Secondary to Ecoli UTI. SIRS (tachycardia, leukocytosis(worsening), lactic acidosis(resolved), hypoxia) Blood cultures not obtained on admission. Cont empiric ceftriaxone, f/u sensitivities (7) UTI (urinary tract infection) Current Visit: No Status: Acute Comment: Ecoli >100K. UA with 3+ LE, 3+ wbc , 2+ bacteria. Continue CFTX (Day 3) (8) CAD (coronary artery disease) Current Visit: No Status: Chronic Code(s): I25.10 - ATHSCL HEART DISEASE OF [place] CORONARY ARTERY W/O ANG PCTRS SNOMED Code(s): 60876263 Comment: Continue metoprolol and statin. troponin 0.03 (9) Goals of care, counseling/discussion Current Visit: Yes Status: Acute Code(s): Z71.89 - OTHER SPECIFIED COUNSELING SNOMED Code(s): 970541393 Comment: Appreciate palliative care recs. Pt interested in hospice. (10) Breast cancer Current Visit: Yes Status: Acute Code(s): C50.919 - MALIGNANT NEOPLASM OF UNSP SITE OF UNSPECIFIED FEMALE BREAST SNOMED Code(s): 205481932 Comment: s/p left mastectomy; per pt has had biopsy on right showing recurrence but did not get cardiac clearance from Dr. Hensley for surgery ( did not mention last progress note). Palliative recs appreciated. Status and Disposition: medicine inpatient. home hospice likely ultimate destination after can be set up 07/03/16 Attending: Avi Ayala
[2017-06-30] MEDS: Torsemide TAB* 20 MG PO SCH (12:03)
[2017-06-30] MEDS: Morphine INJ* 2 MG/ML 1 ML SYRINGE (TWO MG - NEW SYRINGE VERSION) IV PRN (15:24)
[2017-06-30] MEDS: Digoxin TAB* 0.125 MG PO SCH (16:55)
[2017-07-01] MEDS: Sodium Bicarbonate (ANTACID)* 650 MG TAB PO SCH ×6 (01:56→22:39)
[2017-07-01 05:56] LABS: ABS Basophils 0 10^3/ul (0-0.2); ABS Eosinophils 0.2 10^3/ul (0-0.6); ABS Lymphocytes 1.3 10^3/ul (1.0-4.8); ABS Monocytes 1.4 10^3/ul (0-0.8); ABS Neutrophils 23.7 10^3/ul (1.5-7.7); ABS Nucleated RBC 0.03 10^3/ul; Eosinophil % 0.6 % (0-6); Hematocrit 27 % (35-47); Hemoglobin 7.9 g/dl (12.0-16.0); Mean Corpuscular HGB Conc 29 g/dl (31-36); Mean Corpuscular Hemoglobin 20 pg (27-31); Mean Platelet Volume 8 um3 (7.4-10.4); Nucleated Red Blood Cells % 0.1; Platelet Count 223 10^3/ul (150-450); Red Blood Count 3.96 10^6/ul (4.0-5.4); Red Cell Distribution Width 20 % (10.5-15); White Blood Count 26.6 10^3/ul (3.5-10.8)
[2017-07-01 06:05] LABS: Mean Corpuscular Volume 68 fL (80-97)
[2017-07-01 06:07] LABS: EGFR Non-African American 12.1 (>60)
[2017-07-01] MEDS: Metoprolol Tartrate TAB* 100 MG TAB PO SCH ×2 (07:57→20:17)
[2017-07-01] MEDS: traMADol TAB* 50 MG PO PRN ×2 (07:57→20:15)
[2017-07-01] MEDS: Torsemide TAB* 20 MG PO SCH (07:57)
[2017-07-01] MEDS: Atorvastatin* 10 MG TAB PO SCH (07:57)
[2017-07-01] MEDS: cefTRIAXone(*) 1 GM in NS 0.9% 50 ML* 50 ML IVPB SCH (07:57)
[2017-07-01] MEDS: Morphine INJ* 2 MG/ML 1 ML SYRINGE (TWO MG - NEW SYRINGE VERSION) IV PRN ×3 (10:03→17:26)
[2017-07-01] MEDS: Pantoprazole IV* 40 MG IV SCH (10:03)
[2017-07-01] MEDS: metroNIDAZOLE TAB* 250 MG PO SCH ×2 (13:19→20:17)
[2017-07-01] MEDS ORDERED: Polyethylene Glycol 3350* 17 GM PACKET PO PRN (13:20)
--- NOTE | 2017-07-01 16:30 | PN ---
Subjective Date of Service: 07/01/17 Interval History: compliant of suprapubic abdominal pain, more fullness. Last BM she says day before yesterday. back pain not as bad today though told RN pain radiated through to back. 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 Objective Active Medications: Atorvastatin Calcium (Lipitor*) 10 mg PO EVERY OTHER DAY [facility] Last Admin: 07/01/17 07:57 Dose: 10 mg Digoxin (Lanoxin Tab*) 0.125 mg PO DAILY@1700 [facility] Last Admin: 06/30/17 16:55 Dose: 0.125 mg Docusate Sodium (Colace Cap*) 100 mg PO DAILY [facility] Ceftriaxone Sodium 1 gm/ (Sodium Chloride) 50 mls @ 200 mls/hr IVPB Q24HR [facility] Last Admin: 07/01/17 07:57 Dose: 200 mls/hr Metoprolol Tartrate (Lopressor Tab*) 100 mg PO BID [facility] Last Admin: 07/01/17 07:57 Dose: 100 mg Metronidazole (Flagyl Tab*) 500 mg PO TID [facility] Last Admin: 07/01/17 13:19 Dose: 500 mg Morphine Sulfate (Morphine Inj (Syringe)*) 2 mg IV Q2H PRN PRN Reason: PAIN Last Admin: 07/01/17 13:18 Dose: 2 mg Nitroglycerin (Nitroglycerin Tab 0.4 Mg*) 0.4 mg SL Q5M PRN PRN Reason: PAIN - CHEST Ondansetron HCl (Zofran Inj*) 8 mg IV Q4H PRN PRN Reason: NAUSEA/VOMITING Last Admin: 06/29/17 21:25 Dose: 8 mg Pantoprazole Sodium (Protonix Iv*) 40 mg IV Q24H [facility] Last Admin: 07/01/17 10:03 Dose: 40 mg Polyethylene Glycol/Electrolytes (Miralax*) 17 gm PO DAILY PRN PRN Reason: CONSTIPATION Senna (Senokot Tab*) 1 tab PO DAILY [facility] Sodium Bicarbonate (Sodium Bicarbonate (Antacid)*) 650 mg PO Q4HR [facility] Last Admin: 07/01/17 13:19 Dose: 650 mg Tramadol HCl (Ultram*) 50 mg PO Q6HR PRN PRN Reason: PAIN Last Admin: 07/01/17 07:57 Dose: 50 mg Vital Signs - 8 hr 07/01/17 07/01/17 07/01/17 10:03 11:32 11:35 Temperature 98.2 F Pulse Rate 59 Respiratory 20 16 18 Rate Blood Pressure 132/44 (mmHg) O2 Sat by Pulse 100 Oximetry 07/01/17 07/01/17 13:18 15:40 Temperature Pulse Rate Respiratory 20 18 Rate Blood Pressure (mmHg) O2 Sat by Pulse Oximetry Oxygen Devices in Use Now: Nasal Cannula Appearance: moderate distress. Ears/Nose/Mouth/Throat: NL Teeth, Lips, Gums, Clear Oropharnyx Neck: NL Appearance and Movements; NL JVP Respiratory: Symmetrical Chest Expansion and Respiratory Effort, - - decreased left base. no wheezing or rhonchi. Cardiovascular: - - GLADIS apex, irregularly irregular. Abdominal: - - suprapubic and RUQ tenderness. Extremities: - - 1+ edema Skin: No Rash or Ulcers, No Nodules or Sclerosis Neurological: Alert and Oriented x 3 Result Diagrams: 07/01/17 05:31 07/01/17 05:31 Additional Lab and Data: Laboratory Results - last 24 hr 07/01/17 07/01/17 07/01/17 05:31 05:31 14:23 WBC 26.6 H RBC 3.96 L Hgb 7.9 L Hct 27 L MCV 68 L MCH 20 L MCHC 29 L RDW 20 H Plt Count 223 MPV 8 Neut % (Auto) 88.9 H Lymph % (Auto) 5.0 L Miller % (Auto) 5.3 Eos % (Auto) 0.6 Baso % (Auto) 0.2 Absolute Neuts (auto) 23.7 H Absolute Lymphs (auto) 1.3 Absolute Monos (auto) 1.4 H Absolute Eos (auto) 0.2 Absolute Basos (auto) 0 Absolute Nucleated RBC 0.03 Nucleated RBC % 0.1 Sodium 137 Potassium 5.1 H Chloride 110 Carbon Dioxide 17 L Anion Gap 10 BUN 62 H Creatinine 3.58 H Est GFR ( Amer) 15.6 Est GFR (Non-Af Amer) 12.1 BUN/Creatinine Ratio 17.3 Glucose 118 H Lactic Acid Calcium 8.6 Magnesium 2.0 Total Bilirubin 0.60 Direct Bilirubin 0.20 H Indirect Bilirubin 0.4 AST 7 L ALT 5 L Alkaline Phosphatase 60 Total Protein 5.5 L Albumin 2.5 L Globulin 3.0 Albumin/Globulin Ratio 0.8 L Lipase 41 07/01/17 14:23 WBC RBC Hgb Hct MCV MCH MCHC RDW Plt Count MPV Neut % (Auto) Lymph % (Auto) Miller % (Auto) Eos % (Auto) Baso % (Auto) Absolute Neuts (auto) Absolute Lymphs (auto) Absolute Monos (auto) Absolute Eos (auto) Absolute Basos (auto) Absolute Nucleated RBC Nucleated RBC % Sodium Potassium Chloride Carbon Dioxide Anion Gap BUN Creatinine Est GFR ( Amer) Est GFR (Non-Af Amer) BUN/Creatinine Ratio Glucose Lactic Acid 1.7 Calcium Magnesium Total Bilirubin Direct Bilirubin Indirect Bilirubin AST ALT Alkaline Phosphatase Total Protein Albumin Globulin Albumin/Globulin Ratio Lipase Microbiology and Other Data: Microbiology 06/27/17 23:31 Urine Urine Culture - Final Escherichia Coli Assess/Plan/Problems-Billing Assessment: 86 yo female PMH HFrEF(30%), mod-severe MVR, mod-severe TVR, chronic Afib, CAD ( s/p RCA stent), with pt reported breast Cancer recurrence p/w abdominal pain x 3 weeks, SOB, Ecoli UTI, TABATHA. Renal Function worsening. Palliative Care consulted and pt wanting home hospice. - Patient Problems (1) TABATHA (acute kidney injury) Current Visit: Yes Status: Acute Code(s): N17.9 - ACUTE KIDNEY FAILURE, UNSPECIFIED SNOMED Code(s): 59723391 Comment: FeNa consistent with prerenal (0.37%), suspect mixed etiology of heart failure/vascular congestion along with UTI. palliative/hospice is the ultimate destination plan. still worsening. will stop diurectics. (2) Abdominal pain Current Visit: Yes Status: Acute Code(s): R10.9 - UNSPECIFIED ABDOMINAL PAIN SNOMED Code(s): 14439891 Comment: Thought 2/2 UTI but persistant. repeat lipase, lactic acid, LFTs okay. consider RUQ US given progressive Xiong's sign tenderness last two days though no signs of gallstones on initial CT abdomin pelvis. Did have nonbstructing staghorn calculus on right. (3) Cardiomyopathy Current Visit: No Status: Acute Code(s): I42.9 - CARDIOMYOPATHY, UNSPECIFIED SNOMED Code(s): 85286823 Comment: Ischemic with Sept ECHO EF 30-35% with mod-severe MVR, mod-severe TVR ( worse than last [facility] [place] ECHO 09/23/16 EF 40-45%, mod MVR, mod pHTN) BNP elevated to 2240.. Home med was lasix 40mg daily. got torsemide 20mg daily x 2 days but will stop today. pleural effusions b/l. daily weights (down to to 144.8, upper level dry weight is 142) strict ios (4) Systolic heart failure Current Visit: No Status: Acute Code(s): I50.20 - UNSPECIFIED SYSTOLIC ( CONGESTIVE) HEART FAILURE SNOMED Code(s): 577518729 Comment: plan as above. Acute on Chronic (5) Atrial fibrillation with RVR Current Visit: No Status: Acute Code(s): I48.91 - UNSPECIFIED ATRIAL FIBRILLATION SNOMED Code(s): 371424028414779 Comment: Continue digoxin. Got dose of Xarelto but CrCl now worsened again. Hold for now. Pt now wanting hospice, wont start heparin gtt or coumadin. consider start eliquis 2.5mg BID if kidney function improves but it has not replete Mg>2, (6) Hyperkalemia Current Visit: No Status: Acute Code(s): E87.5 - HYPERKALEMIA SNOMED Code( s): 92503154 Comment: s/p Kayexalate x2, resolved. In setting of TABATHA/cardiorenal syndrome hold spironolactone. bicarb po (7) Sepsis Current Visit: No Status: Acute Comment: Likely Secondary to Ecoli UTI. SIRS (tachycardia, leukocytosis(worsening), lactic acidosis(resolved), hypoxia) Blood cultures not obtained on admission. Cont ceftriaxone, resistant to bactrim, ampicillin. Day 4. (8) UTI (urinary tract infection) Current Visit: No Status: Acute Comment: Ecoli >100K. UA with 3+ LE, 3+ wbc , 2+ bacteria. Continue CFTX (Day 4) (9) CAD (coronary artery disease) Current Visit: No Status: Chronic Code(s): I25.10 - ATHSCL HEART DISEASE OF [place] CORONARY ARTERY W/O ANG PCTRS SNOMED Code(s): 56939190 Comment: Continue metoprolol and statin. troponin 0.03 (10) Goals of care, counseling/discussion Current Visit: Yes Status: Acute Code(s): Z71.89 - OTHER SPECIFIED COUNSELING SNOMED Code(s): 982980528 Comment: Appreciate palliative care recs. Pt interested in hospice. (11) Breast cancer Current Visit: Yes Status: Acute Code(s): C50.919 - MALIGNANT NEOPLASM OF UNSP SITE OF UNSPECIFIED FEMALE BREAST SNOMED Code(s): 106565034 Comment: s/p left mastectomy; per pt has had biopsy on right showing recurrence but did not get cardiac clearance from Dr. Hensley for surgery ( did not mention last progress note). Palliative recs appreciated. Status and Disposition: medicine inpatient. home hospice likely ultimate destination after can be set up 07/03/16 Attending: Avi Ayala
[2017-07-01] MEDS: Digoxin TAB* 0.125 MG PO SCH (17:25)
[2017-07-01] MEDS: Senna TAB PO SCH (17:25)
[2017-07-01] MEDS: Docusate CAP* 100 MG PO SCH (17:25)
--- NOTE | 2017-07-01 19:51 | RAD ---
HISTORY: Right upper quadrant and epigastric pain. COMPARISONS: CT abdomen pelvis June 27, 2017 TECHNIQUE: Multiple transverse and longitudinal ultrasound images were obtained of the right upper quadrant. FINDINGS: LIVER: The liver is normal in dimensions and echogenicity. Normal hepatic and portal venous blood flow is duplicated with color flow imaging. There is no gross intrahepatic biliary duct dilatation. GALLBLADDER AND EXTRAHEPATIC BILIARY DUCT: The gallbladder is normal in appearance without intraluminal stones or other soft tissue masses. There is no pericholecystic fluid or gallbladder wall thickening. The common bile duct measures a maximum diameter of 8 mm. PANCREAS: The portions of the pancreas not obscured by bowel gas are normal in appearance. RIGHT KIDNEY: At the lower pole of the right kidney there is a large shadowing calcification corresponding to the CT imaging. The kidney is otherwise normal in appearance without signs of hydronephrosis. AORTA AND IVC: The visualized portions are normal in appearance and not pathologically dilated. IMPRESSION: THE DIAMETER OF THE COMMON BILE DUCT IS TOP NORMAL BUT WITHIN THE RANGE OF NORMAL FOR A PATIENT OF THIS AGE. THERE IS NO SONOGRAPHIC EVIDENCE OF CHOLELITHIASIS OR BILIARY OBSTRUCTION.
[2017-07-02] MEDS: Sodium Bicarbonate (ANTACID)* 650 MG TAB PO SCH ×6 (02:56→20:27)
[2017-07-02 06:23] LABS: ABS Basophils 0 10^3/ul (0-0.2); ABS Eosinophils 0.1 10^3/ul (0-0.6); ABS Monocytes 1.5 10^3/ul (0-0.8); ABS Neutrophils 19.3 10^3/ul (1.5-7.7); ABS Nucleated RBC 0.05 10^3/ul; Eosinophil % 0.3 % (0-6); Hematocrit 29 % (35-47); Hemoglobin 8.8 g/dl (12.0-16.0); Lymphocyte % 4.7 % (25-47); Mean Corpuscular HGB Conc 31 g/dl (31-36); Mean Corpuscular Hemoglobin 21 pg (27-31); Mean Platelet Volume 8 um3 (7.4-10.4); Nucleated Red Blood Cells % 0.2; Platelet Count 265 10^3/ul (150-450); Red Blood Count 4.23 10^6/ul (4.0-5.4); Red Cell Distribution Width 20 % (10.5-15); White Blood Count 21.9 10^3/ul (3.5-10.8)
[2017-07-02 06:25] LABS: Mean Corpuscular Volume 68 fL (80-97)
[2017-07-02 06:44] LABS: EGFR Non-African American 12.3 (>60)
[2017-07-02] MEDS: Senna TAB PO SCH (08:46)
[2017-07-02] MEDS: Docusate CAP* 100 MG PO SCH (08:47)
[2017-07-02] MEDS: traMADol TAB* 50 MG PO PRN ×3 (08:47→21:40)
[2017-07-02] MEDS: Metoprolol Tartrate TAB* 100 MG TAB PO SCH ×2 (08:47→20:24)
[2017-07-02] MEDS: metroNIDAZOLE TAB* 250 MG PO SCH ×3 (08:47→20:24)
[2017-07-02] MEDS: Omeprazole CAP* 20 MG PO SCH (08:48)
[2017-07-02] MEDS: cefTRIAXone(*) 1 GM in NS 0.9% 50 ML* 50 ML IVPB SCH (08:48)
[2017-07-02] MEDS: Morphine INJ* 2 MG/ML 1 ML SYRINGE (TWO MG - NEW SYRINGE VERSION) IV PRN ×2 (10:53→19:50)
[2017-07-02] MEDS ORDERED: Magnesium Sulfate 2 GM IV* 2 GM/50 ML BAG IVPB ONE (10:55)
[2017-07-02] MEDS: Ondansetron INJ* 2 MG/ML VIAL IV PRN ×2 (12:23→21:41)
[2017-07-02] MEDS ORDERED: Magnesium CITRATE* 300 ML BTL PO ONE (12:30)
[2017-07-02] MEDS ORDERED: Simethicone TAB* 80 MG TAB.CHEW PO PRN (13:40)
[2017-07-02] MEDS: Digoxin TAB* 0.125 MG PO SCH (16:44)
--- NOTE | 2017-07-02 17:46 | PN ---
Subjective Date of Service: 07/02/17 Interval History: abdomen felt soft this AM then got harder again. No BM, passing gas. flagyl was added and wbc falling. 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 Objective Active Medications: Atorvastatin Calcium (Lipitor*) 10 mg PO EVERY OTHER DAY [facility] Last Admin: 07/01/17 07:57 Dose: 10 mg Digoxin (Lanoxin Tab*) 0.125 mg PO DAILY@1700 [facility] Last Admin: 07/02/17 16:44 Dose: 0.125 mg Docusate Sodium (Colace Cap*) 100 mg PO DAILY [facility] Last Admin: 07/02/17 08:47 Dose: 100 mg Ceftriaxone Sodium 1 gm/ (Sodium Chloride) 50 mls @ 200 mls/hr IVPB Q24HR [facility] Last Admin: 07/02/17 08:48 Dose: 200 mls/hr Metoprolol Tartrate (Lopressor Tab*) 100 mg PO BID [facility] Last Admin: 07/02/17 08:47 Dose: 100 mg Metronidazole (Flagyl Tab*) 500 mg PO TID [facility] Last Admin: 07/02/17 13:33 Dose: 500 mg Morphine Sulfate (Morphine Inj (Syringe)*) 2 mg IV Q2H PRN PRN Reason: PAIN Last Admin: 07/02/17 10:53 Dose: 2 mg Nitroglycerin (Nitroglycerin Tab 0.4 Mg*) 0.4 mg SL Q5M PRN PRN Reason: PAIN - CHEST Omeprazole (Prilosec Cap*) 20 mg PO DAILY [facility] Last Admin: 07/02/17 08:48 Dose: 20 mg Ondansetron HCl (Zofran Inj*) 8 mg IV Q4H PRN PRN Reason: NAUSEA/VOMITING Last Admin: 07/02/17 12:23 Dose: 8 mg Polyethylene Glycol/Electrolytes (Miralax*) 17 gm PO DAILY PRN PRN Reason: CONSTIPATION Senna (Senokot Tab*) 1 tab PO DAILY [facility] Last Admin: 07/02/17 08:46 Dose: 1 tab Simethicone (Mylicon Tab*) 80 mg PO Q6H PRN PRN Reason: DYSPEPSIA Last Admin: 07/02/17 13:55 Dose: 80 mg Sodium Bicarbonate (Sodium Bicarbonate (Antacid)*) 650 mg PO Q4HR [facility] Last Admin: 07/02/17 16:34 Dose: Not Given Tramadol HCl (Ultram*) 50 mg PO Q6HR PRN PRN Reason: PAIN Last Admin: 07/02/17 15:57 Dose: 50 mg Vital Signs - 8 hr 07/02/17 07/02/17 07/02/17 10:53 11:29 11:51 Temperature 98.8 F Pulse Rate 86 Respiratory 16 16 18 Rate Blood Pressure 153/54 (mmHg) O2 Sat by Pulse 100 Oximetry 07/02/17 07/02/17 07/02/17 14:24 15:25 15:57 Temperature 98.2 F Pulse Rate 77 Respiratory 18 16 20 Rate Blood Pressure 146/52 (mmHg) O2 Sat by Pulse 99 Oximetry 07/02/17 07/02/17 16:00 16:44 Temperature Pulse Rate 78 Respiratory Rate Blood Pressure (mmHg) O2 Sat by Pulse 99 Oximetry Oxygen Devices in Use Now: Nasal Cannula Appearance: chronically ill appearing. Respiratory: Symmetrical Chest Expansion and Respiratory Effort, Clear to Auscultation Cardiovascular: NL Sounds; No Murmurs; No JVD, RRR Abdominal: - - RUQ point tenderness. Extremities: No Edema Skin: No Rash or Ulcers Neurological: Alert and Oriented x 3, NL Sensation, NL Muscle Strength and Tone Nutrition: Taking PO's Result Diagrams: 07/02/17 05:54 07/02/17 05:54 Additional Lab and Data: Laboratory Results - last 24 hr 07/02/17 07/02/17 05:54 05:54 WBC 21.9 H RBC 4.23 Hgb 8.8 L Hct 29 L MCV 68 L MCH 21 L MCHC 31 RDW 20 H Plt Count 265 MPV 8 Neut % (Auto) 88.0 H Lymph % (Auto) 4.7 L Davidson % (Auto) 6.8 Eos % (Auto) 0.3 Baso % (Auto) 0.2 Absolute Neuts (auto) 19.3 H Absolute Lymphs (auto) 1.0 Absolute Monos (auto) 1.5 H Absolute Eos (auto) 0.1 Absolute Basos (auto) 0 Absolute Nucleated RBC 0.05 Nucleated RBC % 0.2 Sodium 138 Potassium 4.7 Chloride 108 Carbon Dioxide 24 Anion Gap 6 BUN 58 H Creatinine 3.53 H Est GFR ( Amer) 15.8 Est GFR (Non-Af Amer) 12.3 BUN/Creatinine Ratio 16.4 Glucose 120 H Calcium 8.7 Magnesium 1.8 L Microbiology and Other Data: Microbiology 06/27/17 23:31 Urine Urine Culture - Final Escherichia Coli 06/27/17 21:49 Stool Stool Culture - Final 06/27/17 21:49 Stool Shiga Toxin I & II - Final Negative Shiga Toxin 1 & 2 06/28/17 00:27 Nasal Nasal Screen MRSA (PCR)(VERONICA) - Final Mrsa Negative 06/27/17 21:49 Stool Stool Gross Appearance - Final 06/27/17 21:49 Stool C. difficile DNA Amplification - Final 027 Presumptive NEGATIVE Toxigenic C.diff NEGATIVE 06/27/17 21:49 Stool Stool Lactoferrin - Final 06/27/17 21:49 Stool Stool Occult Blood (VERONICA) - Final Assess/Plan/Problems-Billing Assessment: 86 yo female PMH HFrEF(30%), mod-severe MVR, mod-severe TVR, chronic Afib, CAD ( s/p RCA stent), with pt reported breast Cancer recurrence p/w abdominal pain x 3 weeks, SOB, Ecoli UTI, TABATHA. Palliative Care consulted and pt wanting home hospice. - Patient Problems (1) TABATHA (acute kidney injury) Current Visit: Yes Status: Acute Code(s): N17.9 - ACUTE KIDNEY FAILURE, UNSPECIFIED SNOMED Code(s): 97130577 Comment: FeNa consistent with prerenal (0.37%), suspect mixed etiology of heart failure/vascular congestion along with UTI. possible recovering ATN given increased UOP palliative/hospice is the ultimate destination plan. 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 (2) Abdominal pain Current Visit: Yes Status: Acute Code(s): R10.9 - UNSPECIFIED ABDOMINAL PAIN SNOMED Code(s): 32771145 Comment: Thought 2/2 UTI but persistant. repeat lipase, lactic acid, LFTs okay. RUQ US given progressive Xiong's sign tenderness but wnl. Did have nonobstructing staghorn calculus on right. again no hydronephrosis on US. (3) Cardiomyopathy Current Visit: No Status: Acute Code(s): I42.9 - CARDIOMYOPATHY, UNSPECIFIED SNOMED Code(s): 20624934 Comment: Ischemic with Sept ECHO EF 30-35% with mod-severe MVR, mod-severe TVR ( worse than last [facility] ECHO 3/25/17 EF 40-45%, mod MVR, mod pHTN) BNP elevated to 2240.. Home med was lasix 40mg daily. got torsemide 20mg daily x 2 days but now off but good UOP. pleural effusions b/l. daily weights (down to to 141.7, upper level dry weight is 142) strict ios (4) Systolic heart failure Current Visit: No Status: Acute Code(s): I50.20 - UNSPECIFIED SYSTOLIC ( CONGESTIVE) HEART FAILURE SNOMED Code(s): 562029948 Comment: plan as above. Acute on Chronic (5) Atrial fibrillation with RVR Current Visit: No Status: Acute Code(s): I48.91 - UNSPECIFIED ATRIAL FIBRILLATION SNOMED Code(s): 465691633314665 Comment: Continue digoxin. Got dose of Xarelto but CrCl now worsened again. Hold for now. Pt now wanting hospice, wont start heparin gtt or coumadin. consider start eliquis 2.5mg BID if kidney function improves but it has not replete Mg>2, (6) Hyperkalemia Current Visit: No Status: Acute Code(s): E87.5 - HYPERKALEMIA SNOMED Code( s): 53682164 Comment: s/p Kayexalate x2, resolved. In setting of TABATHA/cardiorenal syndrome hold spironolactone. bicarb po (7) Sepsis Current Visit: No Status: Acute Comment: Likely Secondary to Ecoli UTI. SIRS (tachycardia, leukocytosis(worsening), lactic acidosis(resolved), hypoxia) Blood cultures not obtained on admission. Cont ceftriaxone, resistant to bactrim, ampicillin. Day 4. (8) UTI (urinary tract infection) Current Visit: No Status: Acute Comment: Ecoli >100K. UA with 3+ LE, 3+ wbc , 2+ bacteria. Continue CFTX (Day 5) (9) CAD (coronary artery disease) Current Visit: No Status: Chronic Code(s): I25.10 - ATHSCL HEART DISEASE OF [place] CORONARY ARTERY W/O ANG PCTRS SNOMED Code(s): 30868466 Comment: Continue metoprolol and statin. troponin 0.03 (10) Goals of care, counseling/discussion Current Visit: Yes Status: Acute Code(s): Z71.89 - OTHER SPECIFIED COUNSELING SNOMED Code(s): 432909475 Comment: Appreciate palliative care recs. Pt interested in hospice. (11) Breast cancer Current Visit: Yes Status: Acute Code(s): C50.919 - MALIGNANT NEOPLASM OF UNSP SITE OF UNSPECIFIED FEMALE BREAST SNOMED Code(s): 969534215 Comment: s/p left mastectomy; per pt has had biopsy on right showing recurrence but did not get cardiac clearance from Dr. Hensley for surgery ( did not mention last progress note). Palliative recs appreciated. Status and Disposition: medicine inpatient. home hospice likely ultimate destination after can be set up 07/03/16 Attending: Avi Ayala
[2017-07-03] MEDS: Sodium Bicarbonate (ANTACID)* 650 MG TAB PO SCH ×6 (02:08→20:21)
[2017-07-03 05:48] LABS: EGFR Non-African American 14.2 (>60)
[2017-07-03 05:50] LABS: ABS Basophils 0.1 10^3/ul (0-0.2); ABS Eosinophils 0.1 10^3/ul (0-0.6); ABS Lymphocytes 0.8 10^3/ul (1.0-4.8); ABS Monocytes 1.8 10^3/ul (0-0.8); ABS Neutrophils 15.8 10^3/ul (1.5-7.7); ABS Nucleated RBC 0.07 10^3/ul; Eosinophil % 0.3 % (0-6); Hematocrit 28 % (35-47); Hemoglobin 8.3 g/dl (12.0-16.0); Lymphocyte % 4.5 % (25-47); Mean Corpuscular HGB Conc 30 g/dl (31-36); Mean Corpuscular Hemoglobin 20 pg (27-31); Mean Platelet Volume 9 um3 (7.4-10.4); Nucleated Red Blood Cells % 0.4; Platelet Count 263 10^3/ul (150-450); Red Blood Count 4.15 10^6/ul (4.0-5.4); Red Cell Distribution Width 20 % (10.5-15); White Blood Count 18.6 10^3/ul (3.5-10.8)
[2017-07-03 05:51] LABS: Mean Corpuscular Volume 68 fL (80-97)
[2017-07-03] MEDS: Docusate CAP* 100 MG PO SCH (08:40)
[2017-07-03] MEDS: Omeprazole CAP* 20 MG PO SCH (08:40)
[2017-07-03] MEDS: Metoprolol Tartrate TAB* 100 MG TAB PO SCH ×2 (08:40→20:21)
[2017-07-03] MEDS: Atorvastatin* 10 MG TAB PO SCH (08:40)
[2017-07-03] MEDS: cefTRIAXone(*) 1 GM in NS 0.9% 50 ML* 50 ML IVPB SCH (08:40)
[2017-07-03] MEDS: Senna TAB PO SCH (08:40)
[2017-07-03] MEDS: metroNIDAZOLE TAB* 250 MG PO SCH ×3 (08:40→20:21)
[2017-07-03] MEDS: traMADol TAB* 50 MG PO PRN ×2 (08:44→20:21)
[2017-07-03] MEDS: Morphine INJ* 2 MG/ML 1 ML SYRINGE (TWO MG - NEW SYRINGE VERSION) IV PRN ×2 (16:17→22:07)
[2017-07-03] MEDS: Digoxin TAB* 0.125 MG PO SCH (17:02)
--- NOTE | 2017-07-03 17:40 | PN ---
Subjective Date of Service: 07/03/17 Interval History: Pt with 2 BMs, second was large, soft-> Some abdominal pain still but improved. Son is planning to provide 22/01 care at her [facility] apartment starting on . WBC falling and ASSORTER improving. Objective Active Medications: Atorvastatin Calcium (Lipitor*) 10 mg PO EVERY OTHER DAY [facility] Last Admin: 07/03/17 08:40 Dose: 10 mg Digoxin (Lanoxin Tab*) 0.125 mg PO DAILY@1700 [facility] Last Admin: 07/03/17 17:02 Dose: 0.125 mg Docusate Sodium (Colace Cap*) 100 mg PO DAILY [facility] Last Admin: 07/03/17 08:40 Dose: Not Given Ceftriaxone Sodium 1 gm/ (Sodium Chloride) 50 mls @ 200 mls/hr IVPB Q24HR [facility] Last Admin: 07/03/17 08:40 Dose: 200 mls/hr Metoprolol Tartrate (Lopressor Tab*) 100 mg PO BID [facility] Last Admin: 07/03/17 08:40 Dose: 100 mg Metronidazole (Flagyl Tab*) 500 mg PO TID [facility] Last Admin: 07/03/17 14:04 Dose: 500 mg Morphine Sulfate (Morphine Inj (Syringe)*) 2 mg IV Q2H PRN PRN Reason: PAIN Last Admin: 07/03/17 16:17 Dose: 2 mg Nitroglycerin (Nitroglycerin Tab 0.4 Mg*) 0.4 mg SL Q5M PRN PRN Reason: PAIN - CHEST Omeprazole (Prilosec Cap*) 20 mg PO DAILY [facility] Last Admin: 07/03/17 08:40 Dose: 20 mg Ondansetron HCl (Zofran Inj*) 8 mg IV Q4H PRN PRN Reason: NAUSEA/VOMITING Last Admin: 07/02/17 21:41 Dose: 8 mg Polyethylene Glycol/Electrolytes (Miralax*) 17 gm PO DAILY PRN PRN Reason: CONSTIPATION Senna (Senokot Tab*) 1 tab PO DAILY [facility] Last Admin: 07/03/17 08:40 Dose: Not Given Simethicone (Mylicon Tab*) 80 mg PO Q6H PRN PRN Reason: DYSPEPSIA Last Admin: 07/02/17 13:55 Dose: 80 mg Sodium Bicarbonate (Sodium Bicarbonate (Antacid)*) 650 mg PO Q4HR [facility] Last Admin: 07/03/17 17:02 Dose: 650 mg Tramadol HCl (Ultram*) 50 mg PO Q6HR PRN PRN Reason: PAIN Last Admin: 07/03/17 08:44 Dose: 50 mg Vital Signs - 8 hr 07/03/17 07/03/17 07/03/17 11:23 12:02 15:27 Temperature 97.6 F 97.7 F Pulse Rate 67 66 Respiratory 18 16 18 Rate Blood Pressure 134/40 139/38 (mmHg) O2 Sat by Pulse 98 94 Oximetry 07/03/17 07/03/17 07/03/17 16:00 16:17 17:02 Temperature Pulse Rate 64 Respiratory 16 Rate Blood Pressure (mmHg) O2 Sat by Pulse 94 Oximetry 07/03/17 17:12 Temperature Pulse Rate Respiratory 16 Rate Blood Pressure (mmHg) O2 Sat by Pulse Oximetry Oxygen Devices in Use Now: Nasal Cannula Appearance: chronically ill appearing. Ears/Nose/Mouth/Throat: NL Teeth, Lips, Gums Respiratory: Symmetrical Chest Expansion and Respiratory Effort, Clear to Auscultation Cardiovascular: NL Sounds; No Murmurs; No JVD, RRR Abdominal: NL Sounds; No Tenderness; No Distention Extremities: No Edema Skin: No Rash or Ulcers Neurological: Alert and Oriented x 3 Result Diagrams: 07/03/17 05:21 07/03/17 05:21 Additional Lab and Data: Laboratory Results - last 24 hr 07/01/17 07/03/17 07/03/17 05:31 05:21 05:21 WBC 18.6 H RBC 4.15 Hgb 8.3 L Hct 28 L MCV 68 L MCH 20 L MCHC 30 L RDW 20 H Plt Count 263 MPV 9 Neut % (Auto) 85.1 H Lymph % (Auto) 4.5 L [place] % (Auto) 9.8 H Eos % (Auto) 0.3 Baso % (Auto) 0.3 Absolute Neuts (auto) 15.8 H Absolute Lymphs (auto) 0.8 L Absolute Monos (auto) 1.8 H Absolute Eos (auto) 0.1 Absolute Basos (auto) 0.1 Absolute Nucleated RBC 0.07 Nucleated RBC % 0.4 Hem Pathologist Commnt Sodium 138 Potassium 4.5 Chloride 106 Carbon Dioxide 26 Anion Gap 6 BUN 57 H Creatinine 3.13 H Est GFR ( Amer) 18.2 Est GFR (Non-Af Amer) 14.2 BUN/Creatinine Ratio 18.2 Glucose 106 H Calcium 8.4 L Magnesium 2.5 Microbiology and Other Data: Microbiology 06/27/17 23:31 Urine Urine Culture - Final Escherichia Coli 06/27/17 21:49 Stool Stool Culture - Final 06/27/17 21:49 Stool Shiga Toxin I & II - Final Negative Shiga Toxin 1 & 2 06/28/17 00:27 Nasal Nasal Screen MRSA (PCR)(VERONICA) - Final Mrsa Negative 06/27/17 21:49 Stool Stool Gross Appearance - Final 06/27/17 21:49 Stool C. difficile DNA Amplification - Final 027 Presumptive NEGATIVE Toxigenic C.diff NEGATIVE 06/27/17 21:49 Stool Stool Lactoferrin - Final 06/27/17 21:49 Stool Stool Occult Blood (VERONICA) - Final Assess/Plan/Problems-Billing Assessment: 86 yo female PMH HFrEF(30%), mod-severe MVR, mod-severe TVR, chronic Afib, CAD ( s/p RCA stent), with pt reported breast Cancer recurrence p/w abdominal pain x 3 weeks, SOB, Ecoli UTI, TABATHA. Palliative Care consulted and pt wanting home hospice (won't accept NH placement) - Patient Problems (1) TABATHA (acute kidney injury) Current Visit: Yes Status: Acute Code(s): N17.9 - ACUTE KIDNEY FAILURE, UNSPECIFIED SNOMED Code(s): 58466155 Comment: FeNa consistent with prerenal (0.37%), suspect mixed etiology of heart failure/vascular congestion along with UTI. possible recovering ATN given increased UOP palliative/hospice is the ultimate destination plan. improved. ASSORTER 3.1 (2.7 on admission, 1.8 few months prior) (2) Abdominal pain Current Visit: Yes Status: Acute Code(s): R10.9 - UNSPECIFIED ABDOMINAL PAIN SNOMED Code(s): 68799133 Comment: Likely component of colitis + UTI + constipation. improved with addition of flagyl and having BMs. repeat lipase, lactic acid, LFTs okay. RUQ US given progressive Xiong's sign tenderness but wnl. Did have nonobstructing staghorn calculus on right. again no hydronephrosis on US. (3) Cardiomyopathy Current Visit: No Status: Acute Code(s): I42.9 - CARDIOMYOPATHY, UNSPECIFIED SNOMED Code(s): 57410984 Comment: Ischemic with Sept ECHO EF 30-35% with mod-severe MVR, mod-severe TVR ( worse than last [facility] ECHO 09/23/16 EF 40-45%, mod MVR, mod pHTN) BNP elevated to 2240.. Home med was lasix 40mg daily. got torsemide 20mg daily x 2 days but now off but good UOP. pleural effusions b/l. daily weights way down today after large BM, upper level dry weight is 142) strict ios (4) Systolic heart failure Current Visit: No Status: Acute Code(s): I50.20 - UNSPECIFIED SYSTOLIC ( CONGESTIVE) HEART FAILURE SNOMED Code(s): 936227473 Comment: plan as above. Acute on Chronic (5) Atrial fibrillation with RVR Current Visit: No Status: Acute Code(s): I48.91 - UNSPECIFIED ATRIAL FIBRILLATION SNOMED Code(s): 849388532628003 Comment: Continue digoxin. Got dose of Xarelto but CrCl now worsened again. Hold for now. Pt now wanting hospice, wont start heparin gtt or coumadin. consider start eliquis 2.5mg BID if kidney function improves but it has not replete Mg>2, (6) Hyperkalemia Current Visit: No Status: Acute Code(s): E87.5 - HYPERKALEMIA SNOMED Code( s): 78141125 Comment: s/p Kayexalate x2, resolved. In setting of TABATHA/cardiorenal syndrome hold spironolactone. bicarb po (7) Sepsis Current Visit: No Status: Acute Comment: Likely Secondary to Ecoli UTI. SIRS (tachycardia, leukocytosis(worsening), lactic acidosis(resolved), hypoxia) Blood cultures not obtained on admission. Cont ceftriaxone, resistant to bactrim, ampicillin. Day 6/7 added flagyl. (8) UTI (urinary tract infection) Current Visit: No Status: Acute Comment: Ecoli >100K. UA with 3+ LE, 3+ wbc , 2+ bacteria. Continue CFTX (Day 6/7) (9) CAD (coronary artery disease) Current Visit: No Status: Chronic Code(s): I25.10 - ATHSCL HEART DISEASE OF [place] CORONARY ARTERY W/O ANG PCTRS SNOMED Code(s): 22157896 Comment: Continue metoprolol and statin. troponin 0.03 (10) Goals of care, counseling/discussion Current Visit: Yes Status: Acute Code(s): Z71.89 - OTHER SPECIFIED COUNSELING SNOMED Code(s): 841382792 Comment: Appreciate palliative care recs. Pt interested in hospice. (11) Breast cancer Current Visit: Yes Status: Acute Code(s): C50.919 - MALIGNANT NEOPLASM OF UNSP SITE OF UNSPECIFIED FEMALE BREAST SNOMED Code(s): 628489855 Comment: s/p left mastectomy; per pt has had biopsy on right showing recurrence but did not get cardiac clearance from Dr. Hensley for surgery ( did not mention last progress note). Palliative recs appreciated. Status and Disposition: medicine inpatient. home hospice likely ultimate destination after can be set up, likely 07/05 Attending: Avi Ayala
[2017-07-04 05:37] LABS: EGFR Non-African American 14.3 (>60)
[2017-07-04 05:38] LABS: ABS Basophils 0 10^3/ul (0-0.2); ABS Eosinophils 0.1 10^3/ul (0-0.6); ABS Lymphocytes 0.8 10^3/ul (1.0-4.8); ABS Nucleated RBC 0.07 10^3/ul; Eosinophil % 0.4 % (0-6); Hematocrit 27 % (35-47); Hemoglobin 7.8 g/dl (12.0-16.0); Lymphocyte % 4.4 % (25-47); Mean Corpuscular HGB Conc 29 g/dl (31-36); Mean Corpuscular Hemoglobin 20 pg (27-31); Mean Corpuscular Volume 69 fL (80-97); Mean Platelet Volume 8 um3 (7.4-10.4); Nucleated Red Blood Cells % 0.4; Platelet Count 249 10^3/ul (150-450); Red Blood Count 3.95 10^6/ul (4.0-5.4); Red Cell Distribution Width 20 % (10.5-15); White Blood Count 17.6 10^3/ul (3.5-10.8)
[2017-07-04 05:39] LABS: ABS Monocytes 1.5 10^3/ul (0-0.8)
[2017-07-04 05:40] LABS: ABS Neutrophils 15.3 10^3/ul (1.5-7.7)
[2017-07-04] MEDS: cefTRIAXone(*) 1 GM in NS 0.9% 50 ML* 50 ML IVPB SCH (09:48)
[2017-07-04] MEDS: Senna TAB PO SCH (09:59)
[2017-07-04] MEDS: metroNIDAZOLE TAB* 250 MG PO SCH ×3 (09:59→20:03)
[2017-07-04] MEDS: Docusate CAP* 100 MG PO SCH (09:59)
[2017-07-04] MEDS: Metoprolol Tartrate TAB* 100 MG TAB PO SCH ×2 (09:59→20:03)
[2017-07-04] MEDS: Omeprazole CAP* 20 MG PO SCH (09:59)
[2017-07-04] MEDS: Morphine INJ* 2 MG/ML 1 ML SYRINGE (TWO MG - NEW SYRINGE VERSION) IV PRN (10:09)
[2017-07-04] MEDS: Digoxin TAB* 0.125 MG PO SCH (16:44)
--- NOTE | 2017-07-04 17:36 | PN ---
Subjective Date of Service: 07/04/17 Interval History: Feels better today. Family said she looked remarkably improved since yesterday. [facility] Objective Active Medications: Atorvastatin Calcium (Lipitor*) 10 mg PO EVERY OTHER DAY [facility] Last Admin: 07/03/17 08:40 Dose: 10 mg Digoxin (Lanoxin Tab*) 0.125 mg PO DAILY@1700 [facility] Last Admin: 07/04/17 16:44 Dose: 0.125 mg Docusate Sodium (Colace Cap*) 100 mg PO DAILY [facility] Last Admin: 07/04/17 09:59 Dose: Not Given Ceftriaxone Sodium 1 gm/ (Sodium Chloride) 50 mls @ 200 mls/hr IVPB Q24HR [facility] Last Admin: 07/04/17 09:48 Dose: 200 mls/hr Metoprolol Tartrate (Lopressor Tab*) 100 mg PO BID [facility] Last Admin: 07/04/17 09:59 Dose: 100 mg Metronidazole (Flagyl Tab*) 500 mg PO TID [facility] Last Admin: 07/04/17 14:14 Dose: 500 mg Morphine Sulfate (Morphine Inj (Syringe)*) 2 mg IV Q2H PRN PRN Reason: PAIN Last Admin: 07/04/17 10:09 Dose: 2 mg Nitroglycerin (Nitroglycerin Tab 0.4 Mg*) 0.4 mg SL Q5M PRN PRN Reason: PAIN - CHEST Omeprazole (Prilosec Cap*) 20 mg PO DAILY [facility] Last Admin: 07/04/17 09:59 Dose: 20 mg Ondansetron HCl (Zofran Inj*) 8 mg IV Q4H PRN PRN Reason: NAUSEA/VOMITING Last Admin: 07/02/17 21:41 Dose: 8 mg Polyethylene Glycol/Electrolytes (Miralax*) 17 gm PO DAILY PRN PRN Reason: CONSTIPATION Senna (Senokot Tab*) 1 tab PO DAILY [facility] Last Admin: 07/04/17 09:59 Dose: Not Given Simethicone (Mylicon Tab*) 80 mg PO Q6H PRN PRN Reason: DYSPEPSIA Last Admin: 07/02/17 13:55 Dose: 80 mg Tramadol HCl (Ultram*) 50 mg PO Q6HR PRN PRN Reason: PAIN Last Admin: 07/03/17 20:21 Dose: 50 mg Vital Signs - 8 hr 01/03/18 01/03/18 01/03/18 09:46 10:09 11:19 Temperature 98.3 F Pulse Rate 68 49 Respiratory 18 16 Rate Blood Pressure 136/44 (mmHg) O2 Sat by Pulse 100 Oximetry 07/04/17 07/04/17 07/04/17 14:06 15:34 16:00 Temperature 98.3 F Pulse Rate 64 Respiratory 18 16 Rate Blood Pressure 150/52 (mmHg) O2 Sat by Pulse 100 100 Oximetry 07/04/17 16:44 Temperature Pulse Rate 68 Respiratory Rate Blood Pressure (mmHg) O2 Sat by Pulse Oximetry Oxygen Devices in Use Now: None Appearance: chronically ill appearing. Eyes: No Scleral Icterus, PERRLA Ears/Nose/Mouth/Throat: NL Teeth, Lips, Gums, Mucous Membranes Moist Respiratory: - - rales at bases, no wheezing or rhonchi Cardiovascular: NL Sounds; No Murmurs; No JVD, RRR Abdominal: - - slight tenderness right mid abdomen Extremities: - - trace edema Skin: No Rash or Ulcers, No Nodules or Sclerosis Neurological: Alert and Oriented x 3, NL Muscle Strength and Tone Nutrition: Taking PO's Result Diagrams: 07/04/17 05:11 07/04/17 05:11 Additional Lab and Data: Laboratory Results - last 24 hr 07/04/17 07/04/17 05:11 05:11 WBC 17.6 H RBC 3.95 L Hgb 7.8 L Hct 27 L MCV 69 L MCH 20 L MCHC 29 L RDW 20 H Plt Count 249 MPV 8 Neut % (Auto) 86.6 H Lymph % (Auto) 4.4 L [place] % (Auto) 8.4 Eos % (Auto) 0.4 Baso % (Auto) 0.2 Absolute Neuts (auto) 15.3 H Absolute Lymphs (auto) 0.8 L Absolute Monos (auto) 1.5 H Absolute Eos (auto) 0.1 Absolute Basos (auto) 0 Absolute Nucleated RBC 0.07 Nucleated RBC % 0.4 Sodium 136 Potassium 4.4 Chloride 105 Carbon Dioxide 25 Anion Gap 6 BUN 54 H Creatinine 3.10 H Est GFR ( Amer) 18.4 Est GFR (Non-Af Amer) 14.3 BUN/Creatinine Ratio 17.4 Glucose 199 H Calcium 8.4 L Microbiology and Other Data: Microbiology 06/27/17 23:31 Urine Urine Culture - Final Escherichia Coli 06/27/17 21:49 Stool Stool Culture - Final 06/27/17 21:49 Stool Shiga Toxin I & II - Final Negative Shiga Toxin 1 & 2 06/28/17 00:27 Nasal Nasal Screen MRSA (PCR)(VERONICA) - Final Mrsa Negative 06/27/17 21:49 Stool Stool Gross Appearance - Final 06/27/17 21:49 Stool C. difficile DNA Amplification - Final 027 Presumptive NEGATIVE Toxigenic C.diff NEGATIVE 06/27/17 21:49 Stool Stool Lactoferrin - Final 06/27/17 21:49 Stool Stool Occult Blood (VERONICA) - Final Assess/Plan/Problems-Billing Assessment: 86 yo female PMH HFrEF(30%), mod-severe MVR, mod-severe TVR, chronic Afib, CAD ( s/p RCA stent), with pt reported breast Cancer recurrence p/w abdominal pain x 3 weeks, SOB, Ecoli UTI, TABATHA. Likely component of colitis. Palliative Care consulted and awaiting hospice at [facility]. - Patient Problems (1) TABATHA (acute kidney injury) Current Visit: Yes Status: Acute Code(s): N17.9 - ACUTE KIDNEY FAILURE, UNSPECIFIED SNOMED Code(s): 34613766 Comment: improved. [employer] stable 3.1 (2.7 on admission, 1.8 few months prior) restart torsemide 20mg po (2) Abdominal pain Current Visit: Yes Status: Acute Code(s): R10.9 - UNSPECIFIED ABDOMINAL PAIN SNOMED Code(s): 84574079 Comment: Likely component of colitis + UTI + constipation. improved with addition of flagyl and having BMs. repeat lipase, lactic acid, LFTs okay. RUQ US given progressive Xiong's sign tenderness but wnl. Did have nonobstructing staghorn calculus on right. again no hydronephrosis on US. (3) Cardiomyopathy Current Visit: No Status: Acute Code(s): I42.9 - CARDIOMYOPATHY, UNSPECIFIED SNOMED Code(s): 86260559 Comment: Ischemic with Sept ECHO EF 30-35% with mod-severe MVR, mod-severe TVR ( worse than last [facility] [place] 09/23/16 EF 40-45%, mod MVR, mod pHTN) BNP elevated to 2240.. Home med was lasix 40mg daily. got torsemide 20mg daily x 2 days. will restart today given rales. pleural effusions b/l. daily weights. upper level dry weight is 142) strict ios (4) Systolic heart failure Current Visit: No Status: Acute Code(s): I50.20 - UNSPECIFIED SYSTOLIC ( CONGESTIVE) HEART FAILURE SNOMED Code(s): 426552730 Comment: plan as above. Acute on Chronic (5) Atrial fibrillation with RVR Current Visit: No Status: Acute Code(s): I48.91 - UNSPECIFIED ATRIAL FIBRILLATION SNOMED Code(s): 515521173057352 Comment: Continue digoxin. Got dose of Xarelto but CrCl now worsened again. Hold for now. Pt now wanting hospice, wont start heparin gtt or coumadin. consider start eliquis 2.5mg BID if kidney function improves but it has not replete Mg>2, (6) Hyperkalemia Current Visit: No Status: Acute Code(s): E87.5 - HYPERKALEMIA SNOMED Code( s): 51326953 Comment: s/p Kayexalate x2, resolved. In setting of TABATHA/cardiorenal syndrome hold spironolactone. bicarb po (7) Sepsis Current Visit: No Status: Acute Comment: Likely Secondary to Ecoli UTI. SIRS (tachycardia, leukocytosis(worsening), lactic acidosis(resolved), hypoxia) Blood cultures not obtained on admission. Cont ceftriaxone, resistant to bactrim, ampicillin. Day 7/7 Continue flagyl. (8) UTI (urinary tract infection) Current Visit: No Status: Acute Comment: Ecoli >100K. UA with 3+ LE, 3+ wbc , 2+ bacteria. Continue CFTX (Day 7/7) (9) CAD (coronary artery disease) Current Visit: No Status: Chronic Code(s): I25.10 - ATHSCL HEART DISEASE OF [place] CORONARY ARTERY W/O ANG PCTRS SNOMED Code(s): 53102311 Comment: Continue metoprolol and statin. troponin 0.03 (10) Goals of care, counseling/discussion Current Visit: Yes Status: Acute Code(s): Z71.89 - OTHER SPECIFIED COUNSELING SNOMED Code(s): 625766533 Comment: Appreciate palliative care recs. Pt interested in hospice. (11) Breast cancer Current Visit: Yes Status: Acute Code(s): C50.919 - MALIGNANT NEOPLASM OF UNSP SITE OF UNSPECIFIED FEMALE BREAST SNOMED Code(s): 180432438 Comment: s/p left mastectomy; per pt has had biopsy on right showing recurrence but did not get cardiac clearance from Dr. Hensley for surgery ( did not mention last progress note). Palliative recs appreciated. Status and Disposition: medicine inpatient. hospice at [facility] likely 07/05 Attending: Avi Ayala
[2017-07-04] MEDS ORDERED: Torsemide TAB* 20 MG PO ONE (18:42)
[2017-07-04] MEDS: traMADol TAB* 50 MG PO PRN (20:04)
[2017-07-05] MEDS ORDERED: traMADol TAB* 50 MG PO PRN (02:45)
[2017-07-05] MEDS: Atorvastatin* 10 MG TAB PO SCH (07:49)
[2017-07-05] MEDS: Docusate CAP* 100 MG PO SCH (07:49)
[2017-07-05] MEDS: metroNIDAZOLE TAB* 250 MG PO SCH (07:49)
[2017-07-05] MEDS: Senna TAB PO SCH (07:49)
[2017-07-05] MEDS: Metoprolol Tartrate TAB* 100 MG TAB PO SCH (07:49)
[2017-07-05] MEDS: Omeprazole CAP* 20 MG PO SCH (07:49)
[2017-07-05] MEDS: Morphine INJ* 2 MG/ML 1 ML SYRINGE (TWO MG - NEW SYRINGE VERSION) IV PRN (07:51)
[2017-07-05 07:53] VITALS: BP 145/62
--- NOTE | 2017-07-05 10:18 | DS ---
DISCHARGE SUMMARY: DATE OF ADMISSION: 06/27/17 DATE OF DISCHARGE: 07/05/17 ADMITTING PROVIDER: Kolby Carrero MD ATTENDING PHYSICIAN: Avi Ayala MD PRIMARY CARE PROVIDER: Dr. Antoni Almanzar. PRIMARY HEATING AND BLENDING SUPERVISOR: Dr. Hensley. CHIEF COMPLAINT: Abdominal pain for 3 weeks. PRINCIPAL DIAGNOSES: Sepsis 2/2 Urinary tract infection; likely colitis; acute kidney injury on chronic kidney disease; chronic advanced systolic and valvular heart failure; known inoperable breast cancer; desire for hospice services. HISTORY OF PRESENT ILLNESS AND HOSPITAL COURSE: Muna Gerardo is an 86-year- old female with complex cardiac history, lung disease, CAD, chronic atrial fibrillation, presenting with 3 weeks of burning and cramping abdominal pain. She developed episodes of emesis, which would relieve the pain. She had occasional diarrhea that intermittently resolved. She presented to [facility] and was found to have profound metabolic acidosis, acute kidney injury, leukocytosis, although initially 9.2 rapidly melinda to the mid 20s and creatinine of 2.75 compared to baseline of 1.8. She was found to have E. coli UTI, for which she received 7 days of ceftriaxone, which it was sensitive to. She had persistent abdominal pain, although the burning pain could be resolved after the initiation of UTI treatment and persistent leukocytosis that did resolve or start to improve with the addition of Flagyl 500 mg t.i.d. and so we discharged on 5 additional days of Flagyl in addition to 5 days of ciprofloxacin. Given her multiorgan failure, known breast cancer, Dr. Hensley did not feel she was an operative candidate for either a lumpectomy or mastectomy, and very poor valvular and systolic heart failure. Palliative care was consulted, Dr. Cho, and the patient discussed desire to enroll in hospice services. Safe discharge plan was initially elusive as the patient was initially refusing to go to any long term facility given her poor experience at a local one few months ago. However, given that she previously a [facility] resident with only 2 health aide visits a week and a son, who offered to stay with her 24x7, but does have some issues with substance abuse, namely alcohol. The patient was eventually convinced to go to [facility]. She is considering enrolling in the hospice services there but not immediately. The patient's creatinine peaked at 3.6 and on discharge is 3.1. She intermittently was diuresed and has been restarted on her home Lasix given development of some trace edema and some rales at the bases of her lungs. The patient did have some relief with addition of her bowel regimen and the cramping abdominal pain component had improved throughout hospital course. The patient was also noted to have some erythema on her left heel and should wear pressure boot to heal at the retirement with skin checks frequently. DISCHARGE MEDICATIONS: Include: 1. Ciprofloxacin 500 mg p.o. b.i.d. for 5 days more . 2. Colace 100 mg p.o. daily. 3. Flagyl 500 mg p.o. t.i.d. for 5 days more. 4. MiraLAX 17 g p.o. daily p.r.n. 5. Senokot 15 mg p.o. daily. 6. Simethicone 80 mg p.o. q.6 hours p.r.n. 7. Omeprazole 20 mg p.o. daily. 8. Simvastatin 20 mg daily. 9. Tramadol 50 mg p.o. q.12 hours p.r.n. 10. Lasix 40 mg p.o. daily. 11. Melatonin 3 mg p.o. at bedtime. DISCHARGE DIET: Heart healthy. ACTIVITY: No restrictions. FOLLOWUP: Please follow up with Dr. Almanzar after discharge from [facility] or with providers at [facility], until then consideration for followup with Dr. Hensley, who has although had recently told the patient that he had little to offer her continued care given at this point multiorgan failure and breast cancer diagnosis. TIME SPENT: On discharge 35 minutes. [id number]/[facility] #: [id number] ERIK
== END 2017-07-05 12:10 | DRG 871 ==
LOC: ED 19:32 → ICU 23:24 → MEDTELE 06-29 13:51
PROVIDERS: ADMIT Internal Medicine; ATTEND Internal Medicine
PROC: 0T9B70Z Drainage of Bladder with Drainage Device, Via Natural or Artificial Opening (ICD-10-PCS; principal; 2017-06-28)
DX: A41.9 Sepsis, unspecified organism (principal); I50.23 Acute on chronic systolic (congestive) heart failure; N17.9 Acute kidney failure, unspecified; I13.2 Hypertensive heart and chronic kidney disease with heart failure and with stage 5 chronic kidney disease, or end stage renal disease; E87.2 Acidosis; E87.5 Hyperkalemia; N39.0 Urinary tract infection, site not specified; I48.2 Chronic atrial fibrillation; B96.20 Unspecified Escherichia coli [E. coli] as the cause of diseases classified elsewhere; C50.911 Malignant neoplasm of unspecified site of right female breast; I08.1 Rheumatic disorders of both mitral and tricuspid valves; Z94.7 Corneal transplant status; I13.0 Hypertensive heart and chronic kidney disease with heart failure and stage 1 through stage 4 chronic kidney disease, or unspecified chronic kidney disease; I25.5 Ischemic cardiomyopathy; I25.10 Atherosclerotic heart disease of native coronary artery without angina pectoris; E78.5 Hyperlipidemia, unspecified; F17.210 Nicotine dependence, cigarettes, uncomplicated; F32.9 Major depressive disorder, single episode, unspecified; R40.2412 Glasgow coma scale score 13-15, at arrival to emergency department; N18.9 Chronic kidney disease, unspecified; Z96.0 Presence of urogenital implants; G47.00 Insomnia, unspecified; K52.9 Noninfective gastroenteritis and colitis, unspecified; J44.9 Chronic obstructive pulmonary disease, unspecified; Z66 Do not resuscitate; I27.20 Pulmonary hypertension, unspecified; M81.0 Age-related osteoporosis without current pathological fracture; M19.90 Unspecified osteoarthritis, unspecified site; Z95.5 Presence of coronary angioplasty implant and graft; Z90.12 Acquired absence of left breast and nipple; Z88.8 Allergy status to other drugs, medicaments and biological substances; Z90.710 Acquired absence of both cervix and uterus; Z85.3 Personal history of malignant neoplasm of breast; Z98.49 Cataract extraction status, unspecified eye; Z83.3 Family history of diabetes mellitus; Z82.49 Family history of ischemic heart disease and other diseases of the circulatory system; I25.2 Old myocardial infarction; Z91.041 Radiographic dye allergy status
CPT/HCPCS: 36415; 36600; 71010; 74176; 76705; 80048; 80053; 80076; 81003; 81015; 82150; 82272; 82570; 82803; 83605; 83630; 83690; 83735; 83880; 84145; 84300; 84443; 84484; 84540; 85025; 85060; 85610; 85730; 86140; 86850; 86900; 86901; 87045; 87046; 87077; 87086; 87186; 87493; 87641; 87899; 93005; A9270-GY; J0696; J1956; J2270; J2405; J3475; J3490